=== PATIENT | female | born 1950 | race Caucasian/White ===

== ENCOUNTER → 2016-07-18 | Outpatient (CLI) | payer OTHER ==
[2016-07-18 11:18] LABS: Blood Urea Nitrogen 15 mg/dL (7-17); Non-African American GFR(MDRD) >60 (>60 ml/min/1.73 sqM)
--- NOTE | 2016-07-18 12:41 | CT ---
EXAMINATION TYPE: CT chest w con DATE OF EXAM: 07/18/2016 11:43 AM COMPARISON: NONE HISTORY: 65-year-old female, evaluate for lung nodule, cough for 3 months TECHNIQUE: Contiguous axial scanning of the chest after the administration of 100 mL of Omnipaque 300 . Coronal/sagittal reconstructions performed. CT DLP: 216.9mGycm. Automatic exposure control utilized for a dose reduction. FINDINGS: Heart is normal size without pericardial effusion. Aorta is normal caliber with conventional arch vessel branching anatomy. Borderline enlarged 9 mm upper left paratracheal lymph node is suspicious as it is a 1.2 cm right tra cheobronchial angle lymph node and 1.4 cm subcarinal lymph node. A mildly enlarged 1.1 cm right hilar lymph node is also suspicious. There is a slightly spiculated lobulated mass measuring 3.3 x 3.2 cm in the right upper lobe abutting the superior mediastinum, axial image 19. Numerous satellite nodules are present in the right upper lobe measuring up to 9 mm. A few additional nodules are seen elsewhere in the lungs measuring up to 5 mm, suggesting the right l ower lobe, axial image 35, 40, and 42, in the inferior lingula axial image 45, in the left lower lobe , axial image 41, 39, and 28, and numerous within the left upper lobe. No consolidation or pleural effusion. Mild emphysematous change is present. The visualized upper abdomen shows a hypodense lesion measuring 2.2 cm in the right liver lobe probab ly a cyst. Questionable additional hypodense lesion inferior most visualized aspect of the right live r lobe, axial image 69 is indeterminate. The adrenal glands appear clear. Bones: There is a dextroconvex scoliosis of the lower thoracic and lumbar spine. There is old healed fracture deformity of the left posterior sixth rib. Associated lucency is equivocal for metastatic di sease or chronic fracture deformity, axial image 23 and 25. Possible tiny lytic lesion posterior left seventh rib axial image 29 no osseous destructive process seen. IMPRESSION: 1. A 3.3 cm spiculated mass in the medial right upper lobe abutting the superior mediastinum suspicio us for primary lung cancer. 2. Suspicious right hilar and mediastinal lymphadenopathy measuring up to 1.4 cm. 3. Too numerous to count pulmonary nodules bilaterally measuring up to 9 mm also suspicious for metas tatic disease. 4. Old healed fracture deformity posterior left sixth rib. However, there is some associated lucency in this region that could be secondary to chronic bony deformity or subtle bone metastasis. There is also suspicious but indeterminate tiny lytic focus in the posterior left seventh rib. 5. 2.2 cm cyst in the right liver lobe but an indeterminate smaller hypodense lesion inferior most as pect of the right liver lobe incompletely seen. Consider PET/CT for staging purposes.
== END | disposition home or self-care (01) ==
LOC: RADCTMAIN 10:45
PROVIDERS: ATTEND Internal Medicine
DX: R91.8 Other nonspecific abnormal finding of lung field (principal)
CPT/HCPCS: 82565; 84520; 71260; 36415; Q9967

== ENCOUNTER → 2016-07-19 | Outpatient (CLI) | payer OTHER ==
[2016-07-19 13:42] LABS: CH 30.1; CHCM 33.1; HCT 42.9 % (34.0-46.0); HGB 14.1 gm/dL (11.4-16.0); MCHC 32.8 g/dL (31.0-37.0); MCV 91.5 fL (80.0-100.0); Mean Platelet Volume 7.6; RBC 4.69 m/uL (3.80-5.40); RDW 12.9 % (11.5-15.5); WBC 6.4 k/uL (3.8-10.6)
[2016-07-19 14:03] LABS: ALT 24 U/L (9-52); AST 24 U/L (14-36); Alkaline Phosphatase 68 U/L (38-126); Anion Gap 10 mmol/L; Blood Urea Nitrogen 14 mg/dL (7-17); Calcium 9.6 mg/dL (8.4-10.2); Carbon Dioxide 32 mmol/L (22-30); Chloride 100 mmol/L (98-107); Cholesterol 129 mg/dL (<200); Glucose 94 mg/dL (74-99); HDL Cholesterol 47 mg/dL (40-60); Non-African American GFR(MDRD) >60 (>60 ml/min/1.73 sqM); Potassium 4.1 mmol/L (3.5-5.1); Sodium 142 mmol/L (137-145); Total Bilirubin 0.6 mg/dL (0.2-1.3); Triglycerides 87 mg/dL (<150)
== END | disposition home or self-care (01) ==
LOC: LABWHC1 13:25
PROVIDERS: ATTEND Internal Medicine
DX: R53.81 Other malaise (principal); Z13.220 Encounter for screening for lipoid disorders; Z13.29 Encounter for screening for other suspected endocrine disorder
CPT/HCPCS: 36415; 80053; 80061; 84439; 84443; 85027

== ENCOUNTER → 2016-07-22 | Outpatient (CLI) | payer OTHER ==
--- NOTE | 2016-07-23 12:48 | PE ---
EXAMINATION TYPE: PET CT fusion skull to thigh DATE OF EXAM: 07/22/2016 3:15 PM COMPARISON: CT chest 07/18/2016 Prior PET/CT: None HISTORY: Abnormal lung scan TECHNIQUE: Following the intravenous administration of 14.5 mCi of F-18 FDG, whole body images are p erformed from the skull base to the midthigh. Images are reviewed on the computer in the coronal, ax ial, and sagittal planes. Reconstructed rotating images are created on independent workstation and r eviewed on the computer. A localization and attenuation correction CT is performed in conjunction w ith the PET scan. DLP: 308.80 mGycm SCAN: Initial Scan Blood glucose: 85 mg/dL Average Mediastinum SUV: 1.9 Average Liver SUV: 2.3 FINDINGS: NECK: Images through the skull base including the entire brain. Radiotracer distribution within the brain appears normal without focal hyperintensity. THORAX: There is a small focus of radiotracer posterior lateral to the trachea. Image 99. This has an SUV of 2.5. Borderline hyperintense lymph node could be present at this level. There is a focal are a of radiotracer within the right suprahilar mass with an SUV of 8.5. Image 103. This compatible with primary or metastatic lesion. There is focal radiotracer accumulation within a pretracheal node with an SUV of 5.7. Image 108. This is suspicious for metastasis. There are 2 foci of hyperintensity at l evel 113. Subcarinal hyperintensity has an SUV of 7.2. The right infrahilar hyperintensity is SUV of value of 8.3. These can be compatible with metastatic neoplasm. There is a subtle mild uptake in the left infrahilar region image 116. This has an SUV value of 3.7, suspicious for neoplasm. The coronal plane image has an intermediate signal area within the posterior medial first rib region with an SUV value approximately 1.6. This is nonspecific. Early metastatic lesion cannot be excluded. This is be st seen on the coronal image, corresponding to axial image 82. Multiple scattered punctate bilateral lung nodules are not hyperintense on PET scan. These may be too small to classify. Metastasis is not excluded this time. These all appear to an SUV values below 1. ABDOMEN: There is a photopenic defect within the hypodensity within the liver suggestive for a cyst. No suspicious uptake within the left lobe liver lesion is evident. Inferior right tip liver lesion is not hyperintense. No abnormal uptake is within the abdomen. PELVIS: No abnormal uptake OSSEOUS STRUCTURES: There is uptake within a posterior lateral left rib. Image 116. This is suspiciou s for metastasis. This has an SUV value of 3.3. Uptake is in the region of the left L5 transverse pro cess with an SUV value 5.3 suspicious for metastatic lesion. LOCALIZATION CT: The ascending thoracic aorta at the level of the main pulmonary artery measures 3.4 cm. The main pulmonary artery at the bifurcation measures 2.5 cm. Small pericardial effusion is prese nt. A 1.5 cm right ovarian cyst may be present. Scoliosis is present. Calcified granuloma is in the periphery of the left upper lung field. COMPARISON: Previously described liver lesions are not hot on the PET scan. IMPRESSION: 1. Hyperintensity within the right suprahilar mass can be compatible with a primary or metastatic les ion. 2. Multiple enlarged lymph nodes within the mediastinum are hyperintense. This includes bilateral inf rahilar region subcarinal region and peritracheal regions. 3. No abnormal uptake within the liver lesions. 4. Pericardial effusion noted on the localization CT. This appears to be increasing from 07/18/2016.
== END ==
LOC: RADPETMAIN 13:28
PROVIDERS: ATTEND Internal Medicine
DX: R91.8 Other nonspecific abnormal finding of lung field (principal); I31.3 Pericardial effusion (noninflammatory); R60.0 Localized edema
CPT/HCPCS: 78815; A9552

== ENCOUNTER 2016-07-27 11:43 | Day surgery (SDC) | payer OTHER ==
[2016-07-25 14:01] VITALS: BMI 26.3
[~2016-07-27 11:43] MED LIST: ALBUTEROL NEB (CONC) 2.5 MG/0.5 ML INHALATION ONE; LACTATED RINGERS 1,000 ML IV ONE; LACTATED RINGERS 1,000 ML IV SCH; LIDOCAINE 1% 20 ML VIAL (10MG/ML) FOR IV START INTRADERMA PRN; LIDOCAINE 2% (PF) 20 MG/ML 10ML INHALATION ONE
[2016-07-27 12:04] VITALS: RESP 16; TEMP 97.8
[2016-07-27] MEDS ORDERED: MIDAZOLAM 2 MG/2 ML VIAL ONE (12:41)
[2016-07-27] MEDS ORDERED: PROPOFOL 10 MG/ML 20 ML VIAL IV ONE (12:41)
[2016-07-27] MEDS ORDERED: LIDOCAINE 1% INJ 10MG/ML (20 ML MDV) ONE (12:41)
[2016-07-27] MEDS ORDERED: LIDOCAINE 1% INJ 10MG/ML (20 ML MDV) INTRATRACH ONE (13:08)
--- NOTE | 2016-07-27 13:10 | P.PCN ---
Date of Procedure: 07/27/16 Preoperative Diagnosis: Right paratracheal mass, right upper lobe mass Postoperative Diagnosis: Same Procedure(s) Performed: Flexible bronchoscopy, transbronchial needle aspirate of the right paratracheal lymph node Anesthesia: [facility] Surgeon: Pepper Burrell Ground Crew Chief #1: Mirtha Yuen Estimated Blood Loss (ml): 0 Pathology: other Condition: stable Disposition: same day Operative Findings: This procedure was done under conscious sedation with anesthetic agents being administered by anesthesia the bedside. After achieving adequate sedation, the flexible bronchoscope was inserted through the right nostril was advanced upper airway. Examination of the posterior oropharynx, larynx, epiglottis, vallecula and vocal cords was done and all of these upper airway structures were within normal limits. A total of 2 MO's of 1% lidocaine was applied to the vocal cords and following that the bronchoscope was advanced into the upper trachea. Examination of the tracheal bronchial she was done. Trachea was within normal. Kalli was sharp in the midline. Bilateral mainstem bronchi were patent and within normal limits. The right upper lobe was trifurcated. The anterior segment of the right upper lobe was extrinsically compressed and there was some minimal swelling/thickening of the orifice of the right upper lobe bronchus along with the kalli the various segments of the upper lobe. No endobronchial tumors was seen at the same level. The airway inspection was completed and the visualized airways included the bronchus intermedius, right lower lobe, right middle lobe, left upper lobe, left lower lobe along with various segments. All of these airways were patent and within normal limits. At this point the bronchoscope was then moved to the main trachea and using a 19 -gauge cytology and 21-gauge histology needle size monitor needle aspirate of the right paratracheal lymph node/mass was done and the adequacy of the sample was confirmed by pathology at the bedside. Total amount of bleeding was less than 5 ML's. The patient rated the procedure well. No bedside complications or bleeding. The bronchoscope was removed and the patient was sent to recovery in a stable condition. The patient will likely get discharged today home to be followed up in the office to discuss the results of the biopsy.
[2016-07-27 13:32] VITALS: BP 102/62
[2016-07-27 13:51] VITALS: PULSE 73
== END 2016-07-27 14:15 | disposition home or self-care (01) ==
LOC: ORWHC2ENDO 11:43
PROVIDERS: ATTEND Internal Medicine Critical Care Medicine
DX: C96.9 Malignant neoplasm of lymphoid, hematopoietic and related tissue, unspecified (principal); R91.8 Other nonspecific abnormal finding of lung field; E78.5 Hyperlipidemia, unspecified; G43.909 Migraine, unspecified, not intractable, without status migrainosus; I10 Essential (primary) hypertension; R05 Cough; I49.9 Cardiac arrhythmia, unspecified; Z79.82 Long term (current) use of aspirin; Z79.2 Long term (current) use of antibiotics; Z79.899 Other long term (current) drug therapy; Z88.0 Allergy status to penicillin
CPT/HCPCS: 94640; 88305; 88173; 31629; J2250; J2001 ×2; J2704; 88341; 88342

== ENCOUNTER 2016-07-28 21:15 | Emergency (ER) | payer OTHER ==
[2016-07-28 21:27] VITALS: RESP 18
[2016-07-28] MEDS ORDERED: MAG HYDROX/AL HYDROX/SIMETH 30 ML, HYOSCYAMINE ELIXIR 10 ML, CIMETIDINE HCL 300 MG, LID... PO STA ×4 (21:45)
--- NOTE | 2016-07-28 21:55 | XR ---
EXAMINATION TYPE: XR chest 2V DATE OF EXAM: 07/28/2016 9:49 PM COMPARISON: 07/24/2016 HISTORY: Cough TECHNIQUE: Frontal and lateral views of the chest are obtained. FINDINGS: Heart and mediastinum are normal. Lungs are clear. Diaphragm is normal. There is mild thor acic levoscoliosis. There is old healed left sixth rib fracture. IMPRESSION: No active cardiopulmonary disease. No change.
[2016-07-28] MEDS ORDERED: methylPREDNISolone SOD SUCCI 125 MG/2 ML VIAL IM STA (22:50)
--- NOTE | 2016-07-28 22:50 | ED ---
ENT HPI - General Chief complaint: ENT Stated complaint: lump in throat-post op Time Seen by Provider: 07/28/16 21:28 Source: patient, RN notes reviewed Mode of arrival: ambulatory Limitations: no limitations - History of Present Illness Initial comments: 65 yo female presents to the ER with cc of throat irritation. Patient had a bronco scope done yesterday by Dr. Burrell. Patient states last night she went home and she slept no problems. Now she just has the irritation in her throat sometimes she coughs and she feels like it's choking her like a lump. Patient is wondering if it is her uvula. Patient states that she hasn't actually brought anything up with it. Patient states she hasn't had a fever chills with it. Patient states she hasn't had any nausea or vomiting with it. Patient states she was concerned due to the continued irritation so she thought that she should be evaluated. Patient denies any recent fever, chills, shortness of breath, chest pain, back pain, abdominal pain, nausea vomiting, numbness or tingling, dysuria or hematuria, constipation or diarrhea, headaches or visual changes, or any other current symptoms. - Related Data Home Medications Medication Instructions Recorded Confirmed Albuterol Inhaler [Ventolin Hfa 2 puff INHALATION TID 07/25/16 07/27/16 Inhaler] Aspirin [Adult Low Dose Aspirin EC] 81 mg PO HS 07/25/16 07/25/16 Atenolol [Tenormin] 50 mg PO DAILY 07/25/16 07/27/16 Atorvastatin [Lipitor] 20 mg PO HS 07/25/16 07/27/16 Calcium Carbonate [Calcium] 600 mg PO HS 07/25/16 07/27/16 Cetirizine HCl [Zyrtec] 10 mg PO HS 07/25/16 07/27/16 Cholecalciferol [Vitamin D3] 2,000 unit PO DAILY 07/25/16 07/27/16 Docusate [Colace] 200 mg PO BID 07/25/16 07/27/16 Levofloxacin [Levaquin] 500 mg PO DAILY 07/25/16 07/27/16 Multivitamins, Thera [Multivitamin] 1 tab PO DAILY 07/25/16 07/27/16 SUMAtriptan SUCCINATE [Imitrex] 100 mg PO DIRECTED PRN 07/25/16 07/27/16 Allergies Allergy/AdvReac Type Severity Reaction Status Date / Time Penicillins Allergy Rash/Hives Verified 07/28/16 21:27 Review of Systems ROS Statement: Those systems with pertinent positive or pertinent negative responses have been documented in the HPI. ROS Other: All systems not noted in ROS Statement are negative. Past Medical History Past Medical History: Cancer, Hyperlipidemia, Osteoarthritis (OA), Pneumonia, Supraventricular Tachycardia (SVT) Additional Past Medical History / Comment(s): migraines, on rx for sinus or pneumonia, constipation, hx skin cancer History of Any Multi-Drug Resistant Organisms: None Reported Past Surgical History: Tonsillectomy Additional Past Surgical History / Comment(s): laparoscopy, A&P repair, rt foot martrins neuroma removed, Past Anesthesia/Blood Transfusion Reactions: No Reported Reaction Past Psychological History: No Psychological Hx Reported Smoking Status: Never smoker Past Alcohol Use History: Rare Past Drug Use History: None Reported - Past Family History Sister(s) Family Medical History: Cancer General Exam Limitations: no limitations General appearance: alert, in no apparent distress Head exam: Present: atraumatic, normocephalic, normal inspection ENT exam: Present: mucous membranes moist, normal external ear exam. Absent: normal oropharynx (Patient does appear to have a swollen uvula and abrasion to the distal aspect.) Neck exam: Present: normal inspection. Absent: tenderness, meningismus, lymphadenopathy Respiratory exam: Present: normal lung sounds bilaterally. Absent: respiratory distress, wheezes, rales, rhonchi, stridor Cardiovascular Exam: Present: regular rate, normal rhythm, normal heart sounds. Absent: systolic murmur, diastolic murmur, rubs, gallop, clicks Back exam: Present: normal inspection Neurological exam: Present: alert, oriented X3, CN II-XII intact. Absent: motor sensory deficit Psychiatric exam: Present: normal affect, normal mood Skin exam: Present: warm, dry, intact, normal color. Absent: rash Course Vital Signs 07/28/16 21:24 Temperature 98.1 F Pulse Rate 90 Respiratory 18 Rate Blood Pressure 131/75 O2 Sat by Pulse 98 Oximetry Medical Decision Making - Medical Decision Making 65-year-old female presents with what appears to be a swollen uvula after a bronchoscopy. At this time we did give the patient is #Medrol as well as a GI cocktail. Chest x-ray was reviewed and essentially acute process. At this time we discussed using ice popsicles and other things help with swelling. We discussed continued follow-up and parameters. We discussed all the patient's questions. She stated that she understood and she has been given the plan. All questions have been answered. This time she will be discharged home. - Radiology Data Radiology results: report reviewed, image reviewed Disposition Clinical Impression: Uvulitis Disposition: HOME SELF-CARE Condition: Stable Instructions: Uvulitis (ED) Additional Instructions: Please use medication as discussed. Please follow up with family doctor if symptoms have not improved over the next two days. Please return to the emergency room if your symptoms increase or worsen or for any other concerns. Referrals: Deana Martinez MD [Primary Care Provider] - 1-2 days Time of Disposition: 22:52
[2016-07-28 23:10] VITALS: BP 129/70; PULSE 78; TEMP 98.2
== END 2016-07-28 23:10 | disposition home or self-care (01) ==
LOC: EC 21:15
DX: K12.2 Cellulitis and abscess of mouth (principal); E78.5 Hyperlipidemia, unspecified; M19.90 Unspecified osteoarthritis, unspecified site; Z87.01 Personal history of pneumonia (recurrent); Z85.828 Personal history of other malignant neoplasm of skin; Z79.82 Long term (current) use of aspirin; Z79.899 Other long term (current) drug therapy; Z88.0 Allergy status to penicillin
CPT/HCPCS: 71020; 99283; 96372; J2930

== ENCOUNTER → 2016-09-04 | Outpatient (CLI) | payer OTHER ==
--- NOTE | 2016-09-04 11:10 | US ---
EXAMINATION TYPE: US venous doppler duplex LE LT DATE OF EXAM: 09/04/2016 10:56 AM COMPARISON: NONE CLINICAL HISTORY: M79.662 PAIN IN LT LOWER LIMB. Calf pain that acts up at night, no swelling, no h/o dvt, h/o lung CA with met to bone SIDE PERFORMED: Left TECHNIQUE: The lower extremity deep venous system is examined utilizing real time linear array sonog alejandrina with graded compression, doppler sonography and color-flow sonography. VESSELS IMAGED: External Iliac Vein (EIV) Common Femoral Vein Deep Femoral Vein Greater Saphenous Vein * Femoral Vein Popliteal Vein Small Saphenous Vein * Proximal Calf Veins (* superficial vessels) Left Leg: Appears negative for DVT tech impression relayed to Rox at office @ 11:00 IMPRESSION: 1. No left lower extremity ultrasound evidence of deep venous thrombosis.
== END ==
LOC: RADUSWWP 10:35
PROVIDERS: ATTEND Internal Medicine Hematology & Oncology
DX: M79.662 Pain in left lower leg (principal)

== ENCOUNTER → 2016-11-11 | Outpatient (CLI) | payer OTHER ==
--- NOTE | 2016-11-13 11:21 | PE ---
Nuclear medicine PET/CT HISTORY: Lung cancer Patient received 14.7 mCi F-18 FDG intravenously delayed scanning performed from the skull base to th e mid thighs. Localization and attenuation correction CT scan was performed. Correlation to prior nuclear medicine PET/CT 07/22/2016 Neck and chest: Aorticopulmonary window nodes show a similar appearance.. There is hypermetabolic upt mario however in the retrocaval pretracheal node SUV 4.2, right hilar node SUV 7.1, subcarinal node tiffanie ws SUV 7.5. Right upper lobe soft tissue measures approximately 2.7 cm in transverse dimension by 1.6 cm in AP dimension which has decreased in size and shows associated hypermetabolic uptake, SUV is 2. 9. Abdomen pelvis: No suspicious hypermetabolic uptake. No evident adenopathy. Osseous structures: Abnormal uptake and lytic appearance to the posterior left sixth rib has changed to sclerotic appearance, no significant hypermetabolic uptake. Scoliotic curvature again noted withi n the lumbar spine. IMPRESSION: There is interval improvement in the right upper lobe lung mass size, osseous metastatic lesion and mediastinal adenopathy, persistent hypermetabolic uptake is present in the subcarinal, ret rocaval and right hilar node as described.
== END | disposition home or self-care (01) ==
LOC: RADPETMAIN 07:59
PROVIDERS: ATTEND Internal Medicine Hematology & Oncology
DX: C79.51 Secondary malignant neoplasm of bone (principal); C34.11 Malignant neoplasm of upper lobe, right bronchus or lung; R59.0 Localized enlarged lymph nodes
CPT/HCPCS: 78815; A9552

== ENCOUNTER → 2016-12-20 | Outpatient (CLI) | payer OTHER ==
[2016-12-20 11:54] LABS: Blood Urea Nitrogen 16 mg/dL (7-17); Non-African American GFR(MDRD) >60 (>60 ml/min/1.73 sqM)
--- NOTE | 2016-12-20 13:01 | CT ---
EXAMINATION TYPE: CT chest w con DATE OF EXAM: 12/20/2016 COMPARISON: PET/CT 11/11/[address] chest 07/18/2016 HISTORY: 66-year-old female Right upper chest discomfort and cough. History of lung cancer TECHNIQUE: Contiguous axial scanning of the chest after the administration of 100 mL of Omnipaque 300 . Coronal/sagittal reconstructions performed. CT DLP: 529mGycm. Automatic exposure control utilized for a dose reduction. FINDINGS: Heart is normal size with small pericardial effusion measuring 1.3 cm thick, increased from 11/11/2016 . There is normal caliber with conventional arch vessel branching anatomy. No enlarged thoracic lymphadenopathy by CT size criteria. However, we note that previous hypermetabol ic mediastinal lymph nodes on PET CT of 11/11/2016 also were no longer enlarged. The medial right upper lobe spiculated mass currently measures 2.7 x 1.2 cm versus 3.0 x 1.8 cm on . Numerous bilateral pulmonary nodules seen on 07/18/2016 are no longer evident. Band of scarring at the peripheral right base and scattered minimal. Calcified granuloma peripheral left upper lobe. No consolidation or pleural effusion. Minimal scattered emphysematous change. Stable hypodense lesions within the liver, one on each side. Adrenal glands are clear. Bones: Stable focal bony irregularity and sclerosis of the posterior left sixth rib. Scoliosis. No os seous destructive process. IMPRESSION: 1. Stable to slight decrease in size of the 2.7 cm spiculated lesion medial right upper lobe (versus 3.0 cm on 11/11/2016). 2. Increasing size of the patient's small pericardial effusion which measures 1.3 cm thick. 3. No thoracic lymphadenopathy by CT size criteria. We note that recent PET scan had hypermetabolic m ediastinal lymph nodes which were also not enlarged 4. Numerous bilateral pulmonary nodules seen on 07/18/2016 are no longer apparent. 5. Stable treated bony metastasis posterior left sixth rib.
== END | disposition home or self-care (01) ==
LOC: RADCTMAIN 11:10
PROVIDERS: ATTEND Internal Medicine Hematology & Oncology
DX: C34.11 Malignant neoplasm of upper lobe, right bronchus or lung (principal); C79.51 Secondary malignant neoplasm of bone; I31.3 Pericardial effusion (noninflammatory); R91.8 Other nonspecific abnormal finding of lung field; Z88.0 Allergy status to penicillin
CPT/HCPCS: 82565; 84520; 71260; 36415; Q9967

== ENCOUNTER → 2017-02-03 | Outpatient (CLI) | payer OTHER ==
--- NOTE | 2017-02-05 08:03 | PE ---
EXAMINATION TYPE: PET CT fusion skull to thigh DATE OF EXAM: 02/03/2017 COMPARISON: PET/CT November 11, [address] July 22, 2016. CT chest December 20, 2016 HISTORY: Lung cancer progress study after chemotherapy treatment. TECHNIQUE: Following the intravenous administration of 15.55 mCi of F-18 FDG, whole body images are performed from the skull base to the midthigh. Images are reviewed on the computer in the coronal, a xial, and sagittal planes. Reconstructed rotating images are created on independent workstation and reviewed on the computer. A localization and attenuation correction CT is performed in conjunction with the PET scan. SCAN: Subsequent Scan FINDINGS: SKULL BASE AND NECK: No suspicious hypermetabolic uptake. CHEST, MEDIASTINUM, AND HILAR REGION: Primary spiculated lesion right upper lobe is redemonstrated me asuring 1.9 x 1.8 cm on current study axial image 70 without abnormal hypermetabolic uptake. There is some residual hypermetabolic uptake in right hilar and subcarinal lymph nodes which are currently gaspar bcentimeter in size near axial image 79, max SUV is 5.14. They have diminished in size and show less hypermetabolic uptake versus prior exam. Faint hypermetabolic uptake is seen in smaller lymph nodes l eft hilar region and paracarinal level also improved from prior No new masses or suspicious areas of hypermetabolic uptake are present. ABDOMEN AND PELVIS: No new areas of abnormal hypermetabolic uptake are seen in the abdomen or pelvis. No adrenal masses are evident. OSSEOUS STRUCTURES: No suspicious hypermetabolic uptake is seen in osseous structures. There is persi stent slightly expanded sclerotic posterior left sixth rib near axial image 83 noted. This could be p osttraumatic in etiology. OTHER CT: There is redemonstration of calcified 4 mm subpleural nodule left lung apex posteriorly on axial image 61. Some linear scarring laterally in the right lung base is redemonstrated. There is redemonstration of cardiomegaly with stable small size pericardial effusion. There is stable 1.3 cm simple appearing cyst right hepatic lobe. Scattered pelvic phleboliths are redemonstrated. There is multilevel facet arthropathy in the lumbar spine contributing to multilevel spinal canal eff acement or stenosis. Underlying prominent scoliosis is redemonstrated. IMPRESSION: Continued interval improvement, primary lesion is stable in size without abnormal hyperme tabolic uptake currently. Thoracic adenopathy continues to diminish in size and diminished in degree of hypermetabolic uptake. No new masses or suspicious hypermetabolic uptake is seen.
== END | disposition home or self-care (01) ==
LOC: RADPETMAIN 08:33
PROVIDERS: ATTEND Internal Medicine Hematology & Oncology
DX: C34.11 Malignant neoplasm of upper lobe, right bronchus or lung (principal)
CPT/HCPCS: 78815; A9552

== ENCOUNTER → 2017-03-30 | Outpatient (CLI) | payer OTHER ==
--- NOTE | 2017-03-30 15:28 | XR ---
EXAMINATION TYPE: XR ribs RT DATE OF EXAM: 03/30/2017 COMPARISON: CT thorax dated 12/20/2016 and PET/CT dated 02/03/2017 HISTORY: Right rib pain for one week TECHNIQUE: Frontal and oblique radiographs of the right ribs were obtained. FINDINGS: The known spiculated right upper lobe pulmonary mass is best visualized on the oblique imag es but is ill-defined on the frontal images. This is better measured on the recent CT. No suspicious osseous lesion is seen radiographically. There is no evidence of acute fracture or dislocation of the right ribs. There is alignment of the right glenohumeral joint and mild arthropathy of the right acr omio clavicular joint. There is partial visualization of an S-shaped scoliotic curvature of the visua lized thoracolumbar spine. IMPRESSION: No evidence of acute fracture of the right ribs or suspicious osseous lesion. The known r ight apical spiculated pulmonary nodule is ill-defined and better appreciated on the recent PET/CT an d CT thorax.
== END | disposition home or self-care (01) ==
LOC: RADXRMAIN 13:35
PROVIDERS: ATTEND Internal Medicine
DX: R91.1 Solitary pulmonary nodule (principal); R52 Pain, unspecified

== ENCOUNTER → 2017-07-28 | Outpatient (CLI) | payer OTHER ==
--- NOTE | 2017-07-28 10:15 | PE ---
EXAMINATION TYPE: PET CT fusion skull to thigh DATE OF EXAM: 07/28/2017 COMPARISON: PET/CT February 03, 2017 and older studies back through PET CT July 22, 2016. HISTORY: Lung cancer progress study. History of biopsy March 2017 per patient without chemotherapy or radiation treatment. TECHNIQUE: Following the intravenous administration of 12.46 mCi of F-18 FDG, whole body images are performed from the skull base to the midthigh. Images are reviewed on the computer in the coronal, a xial, and sagittal planes. Reconstructed rotating images are created on independent workstation and reviewed on the computer. A localization and attenuation correction CT is performed in conjunction with the PET scan. SCAN: Subsequent Scan FINDINGS: SKULL BASE AND NECK: No suspicious hypermetabolic uptake on current study. CHEST, MEDIASTINUM, AND HILAR REGION: There is marked interval improvement in scattered predominantly upper lung nodule since original PET/CT. There is persistent ametabolic medial right upper lobe spic ulated nodule measuring 2.0 x 1.1 cm on axial image 73 not significant change in size or appearance f rom recent PET CT, significantly improved since original study. There are persistent under 1 cm hypermetabolic lymph nodes in the right paratracheal region axial mike ge 76, and roughly 1 cm subcarinal region axial image 82, and 1 cm right hilar region axial image 82. No significant change in size is identified from prior. SUV is 5.1 fairly stable from prior. Faint hypermetabolic uptake subcentimeter left hilar lymph nodes is felt stable. No new areas of suspicious hypermetabolic uptake are identified. ABDOMEN AND PELVIS: No new areas of abnormal hypermetabolic uptake are present. OSSEOUS STRUCTURES: No suspicious hypermetabolic uptake is seen. There is redemonstration of healing posterior left sixth rib fracture. OTHER CT: There is persistent right lateral basilar linear scarring. There is stable calcified 4 mm l eft apical nodule axial image 65 posteriorly. There is stable mild cardiomegaly and small pericardial effusion. There is 1.3 cm round hypodense lesion right hepatic lobe axial image 127 felt to reflect simple cyst redemonstrated Underlying scoliosis is again seen in the lumbar spine. There is multilevel spurring in the thoracolu mbar spine. There is multilevel facet arthropathy in the mid to lower lumbar spine. There are scattered pelvic phleboliths seen. IMPRESSION: Overall stable findings from most recent PET/CT. Persistent but stable thoracic adenopath y. No new areas of active neoplasm identified.
== END | disposition home or self-care (01) ==
LOC: RADPETMAIN 07:32
PROVIDERS: ATTEND Internal Medicine Hematology & Oncology
DX: C34.11 Malignant neoplasm of upper lobe, right bronchus or lung (principal); R59.0 Localized enlarged lymph nodes
CPT/HCPCS: 78815; A9552

== ENCOUNTER → 2018-02-09 | Outpatient (CLI) | payer BC, MEDICARE ==
--- NOTE | 2018-02-11 16:21 | PE ---
Nuclear medicine PET/CT HISTORY: Lung carcinoma, subsequent Patient received 11.7 mCi F-18 intravenously in delayed scanning performed from the skull base to the mid thighs. An attenuation correction CT, localization CT scan was also performed. Correlation to prior nuclear medicine PET/CT 07/28/2017 Neck and chest: There is no evident cervical adenopathy. No supraclavicular or axillary adenopathy. R etrocaval pretracheal node shows hypermetabolic uptake with SUV 3.2, subcarinal node SUV 5.5, right h ilar nodes SUV 4.7, left hilar nodes 2.8 SUV. There is a small pericardial effusion. No pleural effus ion. Linear bands at the right lung base somewhat nodular at the costophrenic angle on the right as o n prior, there is some local bronchiectatic change which is stable, axial image 104 in the right lowe r lobe. Right upper lobe scarring shows a stable appearance, no significant associated hypermetabolic uptake. Calcified nodule again noted in the left upper lobe. Abdomen pelvis: No evident adrenal mass. No associated hypermetabolic uptake. Low dense focus within the right lobe of the liver is present, no associated hypermetabolic uptake. Dependent calcification in the gallbladder activity due to cholelithiasis. No evident retroperitoneal adenopathy, there is a spinal curvature. Mild prominence the right renal collecting system is again noted. Right ovarian cys tic mass again seen, no associated hypermetabolic uptake. No pelvic adenopathy. Osseous structures show degenerative disc changes in the lower lumbar spine, there is associated face t arthropathy. Spinal stenosis suspected at the lower lumbar spine. IMPRESSION: Findings are similar to prior exam.
== END | disposition home or self-care (01) ==
LOC: RADPETMAIN 07:26
PROVIDERS: ATTEND Internal Medicine Hematology & Oncology
DX: C34.11 Malignant neoplasm of upper lobe, right bronchus or lung (principal)
CPT/HCPCS: 78815; A9552

== ENCOUNTER 2018-05-19 18:17 | Emergency (ER) | payer MEDICARE, BC ==
[2018-05-19 18:33] VITALS: RESP 18; TEMP 98
[2018-05-19] MEDS ORDERED: CEPHALEXIN 500MG STARTER PACK 4 CAP BTL PO STA (20:24)
[2018-05-19] MEDS ORDERED: SULFAMETH-TMP DS STARTER PACK 2 TAB BTL PO STA (20:24)
[2018-05-19] MEDS ORDERED: ERYTHROMYCIN 5 MG/GM OPHTH OINT 3.5 GM TUBE RIGHT EYE SCH (20:30)
--- NOTE | 2018-05-19 20:37 | ED ---
Eye Problem HPI - General Chief complaint: Eye Problems Stated complaint: Eye pain Time Seen by Provider: 05/19/18 18:35 Source: patient Mode of arrival: ambulatory Limitations: no limitations - History of Present Illness Initial comments: This a 67-year-old feel past medical history of lung cancer on targeted treatment, orally x 18 months presents today for chief complaint of right eye redness and drainage. Mother states that her hands and had recently had pink eye. She states she woke up yesterday from a nap noting increasing drainage, erythema and irritation of the right eye. Patient denies any pain or visual changes. Patient denies any diplopia, headache or pain with extraocular eye movements. Patient states that she took her grandsons tobramycin, 4 doses in total since yesterday evening however she decided to presents today for evaluation. Patient denies any fever, chills or night sweats. Patient does admit to a recent upper respiratory infection that has since cleared. Patient denies any trauma or injury to the eye. Patient denies any history of glaucoma. Upon arrival patient appears well, no signs of focal neurological deficits upon initial inspection. Vital signs within acceptable limits. Patient does not appear to be in acute distress. Remainder of ROS negative, patient denies any recent fever, chills, shortness of breath, chest pain, back pain, abdominal pain, nausea or vomiting, numbness or tingling, dysuria or hematuria, constipation or diarrhea, headaches or visual changes, or any other complaints. - Related Data Home Medications Medication Instructions Recorded Confirmed Albuterol Inhaler [Ventolin Hfa 2 puff INHALATION TID 07/25/16 07/27/16 Inhaler] Aspirin [Adult Low Dose Aspirin EC] 81 mg PO HS 07/25/16 07/25/16 Atenolol [Tenormin] 50 mg PO DAILY 07/25/16 07/27/16 Atorvastatin [Lipitor] 20 mg PO HS 07/25/16 07/27/16 Calcium Carbonate [Calcium] 600 mg PO HS 07/25/16 07/27/16 Cetirizine HCl [Zyrtec] 10 mg PO HS 07/25/16 07/27/16 Cholecalciferol [Vitamin D3] 2,000 unit PO DAILY 07/25/16 07/27/16 Docusate [Colace] 200 mg PO BID 07/25/16 07/27/16 Levofloxacin [Levaquin] 500 mg PO DAILY 07/25/16 07/27/16 Multivitamins, Thera [Multivitamin] 1 tab PO DAILY 07/25/16 07/27/16 SUMAtriptan SUCCINATE [Imitrex] 100 mg PO DIRECTED PRN 07/25/16 07/27/16 Previous Rx's Medication Instructions Recorded Cephalexin [Keflex] 500 mg PO Q12HR 7 Days #14 cap 05/19/18 Erythromycin Ophth Oint [Romycin 1 applic RIGHT EYE QID 5 Days #1 05/19/18 Ophth Oint] tube Sulfamethox-Tmp 800-160Mg [Bactrim 1 tab PO Q12HR 7 Days #14 tab 05/19/18 DS 800-160 mg] Allergies Allergy/AdvReac Type Severity Reaction Status Date / Time Penicillins Allergy Rash/Hives Verified 05/19/18 18:33 Review of Systems ROS Statement: Those systems with pertinent positive or pertinent negative responses have been documented in the HPI. ROS Other: All systems not noted in ROS Statement are negative. Past Medical History Past Medical History: Cancer, Hyperlipidemia, Osteoarthritis (OA), Pneumonia, Supraventricular Tachycardia (SVT) Additional Past Medical History / Comment(s): migraines, on rx for sinus or pneumonia, constipation, hx skin cancer History of Any Multi-Drug Resistant Organisms: None Reported Past Surgical History: Tonsillectomy Additional Past Surgical History / Comment(s): laparoscopy, A&P repair, rt foot martrins neuroma removed, Past Anesthesia/Blood Transfusion Reactions: No Reported Reaction Past Psychological History: No Psychological Hx Reported Smoking Status: Never smoker Past Alcohol Use History: Rare Past Drug Use History: None Reported - Past Family History Sister(s) Family Medical History: Cancer General Exam - General Exam Comments Initial Comments: VA 20/20 with corrective glasses. OD, OS, OU. General: The patient is awake and alert, in no distress, and does not appear acutely ill. Eye: Pupils are equal, round and reactive to light, extra-ocular movements are intact. No nystagmus. There is normal conjunctiva of the left eye, +2 conjunctival injection of the right eye.. No signs of icterus. Conjunctival injection is in the limbus. There is noted discharge in the right eye. As well as mild erythema of the strike soft tissues of the right eye. Patient denies any pain with extraocular eye movements. There is no limitations of extraocular eye movements noted. No noted photophobia. Upon fluorescein examination no areas of uptake. IOP 17 OD. Ears, nose, mouth and throat: There are moist mucous membranes and no oral lesions. Neck: The neck is supple, there is no tenderness or JVD. Cardiovascular: There is a regular rate and rhythm. No murmur, rub or gallop is appreciated. Respiratory: Lungs are clear to auscultation, respirations are non-labored, breath sounds are equal. No wheezes, stridor, rales, or rhonchi. Gastrointestinal: Soft, non-distended, non-tender abdomen without masses or organomegaly noted. There is no rebound or guarding present. No CVA tenderness. Bowel sounds are unremarkable. Musculoskeletal: Normal ROM, no tenderness. Strength 5/5. Sensation intact. Pulses equal bilaterally 2+. Neurological: A&O x 3. CN II-XII intact, There are no obvious motor or sensory deficits. Coordination appears grossly intact. Speech is normal. Skin: Skin is warm and dry and no rashes or lesions are noted. Psychiatric: Cooperative, appropriate mood & affect, normal judgment. Limitations: no limitations Course Vital Signs 05/19/18 05/19/18 18:31 20:49 Temperature 98 F Pulse Rate 72 71 Respiratory 18 18 Rate Blood Pressure 127/61 150/70 O2 Sat by Pulse 98 100 Oximetry Medical Decision Making - Medical Decision Making No decrease in visual acuity in the right eye comparison the left. 20/20 OD, OS , OU with corrective lens. Intraocular pressure 17 of the right eye. Patient denies any pain. Patient denies any pain with extraocular eye movement concerning for a orbital cellulitis. There is evidence of surrounding soft tissue erythema of the right eye concerning for a periorbital cellulitis. Patient will be started on Keflex and Bactrim as well as a topical erythromycin ointment. Patient was instructed to closely follow up with ophthalmology in the next 24 hours. I discussed the importance of follow-up. Patient denies any concerning symptoms no evidence of visual changes. Patient is not contact lens user. Patient does have glasses. At this time I do feel patient is stable for discharge with ophthalmology follow-up. I discussed the case in detail with Dr. Jaimes Agrees with impression and plan. Patient was discharged in stable condition appearing well after receiving initial doses of both oral and topical medications. Return parameters discussed at length with patient who verbalized understanding. Patient was discharged in stable condition appearing well. Disposition Clinical Impression: Periorbital cellulitis of right eye Disposition: HOME SELF-CARE Condition: Good Instructions: Periorbital Cellulitis in Adults (ED) Additional Instructions: Please use medication as discussed. Please follow-up with ophthalmology in the next 1-2 days. Please return to emergency room if the symptoms increase or worsen or for any other concerns, including pain in eye or with eye movement. Prescriptions: Cephalexin [Keflex] 500 mg PO Q12HR 7 Days #14 cap Erythromycin Ophth Oint [Romycin Ophth Oint] 1 applic RIGHT EYE QID 5 Days #1 tube Sulfamethox-Tmp 800-160Mg [Bactrim DS 800-160 mg] 1 tab PO Q12HR 7 Days #14 tab Is patient prescribed a controlled substance at d/c from ED?: No Referrals: Deana Martinez MD [Primary Care Provider] - 1-2 days Nino Goldman MD [STAFF PHYSICIAN] - 1-2 days Time of Disposition: 20:31
[2018-05-19 20:59] VITALS: BP 150/70; PULSE 71
== END 2018-05-19 20:59 | disposition home or self-care (01) ==
LOC: EC 18:17
DX: L03.213 Periorbital cellulitis (principal); E78.5 Hyperlipidemia, unspecified; Z79.82 Long term (current) use of aspirin; Z79.899 Other long term (current) drug therapy; Z88.0 Allergy status to penicillin; Z85.828 Personal history of other malignant neoplasm of skin; Z85.118 Personal history of other malignant neoplasm of bronchus and lung
CPT/HCPCS: 99283

== ENCOUNTER → 2018-06-27 | Outpatient (CLI) | payer MEDICARE, BC ==
--- NOTE | 2018-06-27 15:31 | XR ---
Lumbosacral spine HISTORY: Low back pain 5 views of the lumbosacral spine correlated to prior exam 07/02/2014 Marked dextroscoliosis shows a similar appearance. There is a rotatory component. There is no evident spondylolysis. Vertebral body height, alignment, bone mineralization are similar, there may be anter olisthesis grade 1 L4-5. Loss of disc height present L5-S1 with associated vacuum phenomenon. Scleros is present in the posterior elements compatible with facet arthropathy. IMPRESSION: Scoliosis as described degenerative disc disease, facet arthropathy.
== END | disposition home or self-care (01) ==
LOC: RADXRMAIN 13:06
PROVIDERS: ATTEND Internal Medicine
DX: M41.86 Other forms of scoliosis, lumbar region (principal); M51.36 Other intervertebral disc degeneration, lumbar region; M46.96 Unspecified inflammatory spondylopathy, lumbar region
CPT/HCPCS: 72110

== ENCOUNTER → 2018-07-30 | Outpatient (CLI) | payer MEDICARE, BC ==
--- NOTE | 2018-07-30 09:13 | US ---
EXAMINATION TYPE: US abdomen complete DATE OF EXAM: 07/30/2018 COMPARISON: pet scan 01/2018 CLINICAL HISTORY: R10.11 Right Upper Quad Pain. Hx lung CA 2017, targeted radiation, pt is having pet scan this Thursday 08/03 EXAM MEASUREMENTS: Liver Length: 14.6 cm Gallbladder Wall: 0.1 cm CBD: 0.2 cm Spleen: 6.1 cm Right Kidney: 9.8 x 5.2 x 4.5 cm Left Kidney: 9.5 x 4.9 x 3.8 cm Pancreas: Tail obscured by overlying bowel gas Liver: small nodule left lobe 1.0 x 0.8 x 0.8 cm non vascular Gallbladder: wnl Evidence for sonographic Mueller's sign: No CBD: wnl Spleen: Obscured by overlying bowel gas Right Kidney: No hydronephrosis or masses seen Left Kidney: No hydronephrosis or masses seen Upper IVC: wnl Abd Aorta: wnl The liver is homogenous. The intrahepatic portion of the IVC and proximal abdominal aorta are within normal limits. There is no evidence of cholelithiasis. Common bile duct is unremarkable. The visu alized portions of the pancreas are homogenous. The spleen is unremarkable. Kidneys are symmetric a nd free of hydronephrosis. No renal lesions are seen. IMPRESSION: 1. Nonspecific 1 cm Nonvascular lesion of decreased echogenicity within the left hepatic lobe. Consid er CT correlation.
== END | disposition home or self-care (01) ==
LOC: RADUSWWP 08:28
PROVIDERS: ATTEND Internal Medicine
DX: K76.9 Liver disease, unspecified (principal)
CPT/HCPCS: 76700

== ENCOUNTER → 2018-08-03 | Outpatient (CLI) | payer MEDICARE, BC ==
--- NOTE | 2018-08-05 11:27 | PE ---
Nuclear medicine PET/CT HISTORY: Lung carcinoma, subsequent Patient received 13.3 mCi F-18 FDG intravenously in delayed scanning was performed from the skull bas e to the mid thighs. Localization and attenuation correction CT scan was performed. Correlation to prior nuclear medicine PET/CT 02/09/2018 Neck And chest: There is a stellate density in the right upper lobe with pleural extension is, extens ion towards the mediastinum similar to prior exam, additional parenchymal bands at the right lower lo be laterally shows a nodular appearance and is stable, no associated hypermetabolic uptake. There is again noted evidence of old granulomatous disease. Trace pericardial effusion. Heart is stable. No cervical adenopathy. Retrocaval pretracheal node shows an SUV of 3.6, measures 3.2 on prior, aorti copulmonary window node shows SUV of only 2.4, subcarinal node SUV is 4, right hilar node 5.4, left h ilar node SUV is 3.2. Abdomen pelvis: No suspicious hypermetabolic uptake. There is a low dense focus within the right lobe of liver without associated hypermetabolic uptake. No evident adrenal mass. No retroperitoneal adeno estuardo. Some hyperdense material seen within the gallbladder compatible with stones. Osseous structures are stable, there is degenerative disc change, scoliotic curvature of the lumbar s pine. IMPRESSION: Findings are similar to prior exam.
== END | disposition home or self-care (01) ==
LOC: RADPETMAIN 08:01
PROVIDERS: ATTEND Internal Medicine Hematology & Oncology
DX: C34.11 Malignant neoplasm of upper lobe, right bronchus or lung (principal)
CPT/HCPCS: 78815; A9552

== ENCOUNTER → 2018-09-04 | Day surgery (SDC) | payer MEDICARE, BC ==
[2018-08-30 15:35] VITALS: BMI 28.1
[~2018-09-04] MED LIST changes: -ALBUTEROL NEB (CONC) 2.5 MG/0.5 ML INHALATION ONE; -LACTATED RINGERS 1,000 ML IV SCH; -LIDOCAINE 1% 20 ML VIAL (10MG/ML) FOR IV START INTRADERMA PRN; +LIDOCAINE 1% INJ 10MG/ML (20 ML MDV) ONE; -LIDOCAINE 2% (PF) 20 MG/ML 10ML INHALATION ONE; +PROPOFOL 10 MG/ML 20 ML VIAL IV ONE
[2018-09-04 09:45] VITALS: RESP 16; TEMP 98
--- NOTE | 2018-09-04 10:32 | P.PCN ---
Date of Procedure: 09/04/18 Procedure(s) Performed: BRIEF HISTORY: Patient is a 60-year-old, pleasant, white female, scheduled for an upper endoscopy as a part of evaluation epigastric fullness, excessive belching for the last 3-4 years duration. Lately his symptoms have been progressively getting worse. She has tried Zantac for a week ago. PROCEDURE PERFORMED: Esophagogastroduodenoscopy with biopsy. PREOPERATIVE DIAGNOSIS: Epigastric discomfort and fullness/excessive belching of 3-4 years duration. IV sedation per anesthesia. PROCEDURE: After informed consent was obtained, the patient was brought into the endoscopy unit. IV sedation was administered by Anesthesia under continuous monitoring. Initially the Olympus GIF-140 video endoscope was inserted into the mouth. Esophagus intubated without any difficulty. It was gradually advanced into the stomach and duodenum and carefully examined. The bulb and the second p art of the duodenum appeared normal. The scope at this time was withdrawn to the stomach, adequately insufflated with air, and upon careful examination, mucosa of the antrum, had severe erosive gastritis and one superficial ulceration measuring 5-6 mm in size which was biopsied. The body, cardia and the fundus appeared normal. The scope was then withdrawn into the esophagus. The GE junction was located at 39 cm from the incisors. The esophagus appeared normal. There were no erosions or ulcerations seen and the patient tolerated the procedure well. IMPRESSION: 1. Superficial antral ulcer and antral erosive gastritis. 2. No evidence of esophagitis. RECOMMENDATIONS: The findings of this examination were discussed with the patient as well as a family. She was advised to follow with the biopsy results. Interim she will be given a prescription for all Zantac 150 milligrams twice daily for 3 months.
[2018-09-04 11:28] VITALS: BP 115/62; PULSE 59
== END ==
LOC: ORWHC2ENDO 09:13
PROVIDERS: ATTEND Internal Medicine Gastroenterology
DX: K25.9 Gastric ulcer, unspecified as acute or chronic, without hemorrhage or perforation (principal); K29.50 Unspecified chronic gastritis without bleeding; K20.9 Esophagitis, unspecified; E78.5 Hyperlipidemia, unspecified; C34.90 Malignant neoplasm of unspecified part of unspecified bronchus or lung; G43.909 Migraine, unspecified, not intractable, without status migrainosus; M19.90 Unspecified osteoarthritis, unspecified site; Z87.01 Personal history of pneumonia (recurrent); Z86.79 Personal history of other diseases of the circulatory system; Z79.82 Long term (current) use of aspirin; Z79.899 Other long term (current) drug therapy; Z88.0 Allergy status to penicillin
CPT/HCPCS: 88305; 43239; J2001; J2704

== ENCOUNTER → 2019-01-25 | Outpatient (CLI) | payer MEDICARE, BC ==
--- NOTE | 2019-01-27 07:51 | PE ---
EXAMINATION TYPE: PET CT fusion skull to thigh DATE OF EXAM: 01/25/2019 COMPARISON: PET/CT dated 08/03/2018, 02/09/2018, and 07/22/2016 HISTORY: Lung cancer treated with chemotherapy in December 2017 and radiation in May 2018 with prio r right lung surgery. TECHNIQUE: Following the intravenous administration of 11.79 mCi of F-18 FDG, whole body images are performed from the skull base to the midthigh. Images are reviewed on the computer in the coronal, a xial, and sagittal planes. Reconstructed rotating images are created on independent workstation and reviewed on the computer. A localization and attenuation correction CT is performed in conjunction with the PET scan. SCAN: Subsequent treatment strategy FINDINGS: Mediastinal background: 3.03 Abdominal background: 1.81 SKULL BASE AND NECK: No suspicious hypermetabolic uptake. CHEST, MEDIASTINUM, AND HILAR REGION: Postsurgical change of the right upper lobe is seen with bandlike thickening against the mediastinum and right lung apex. This has a maximum SUV of 1.19 multiple low knees in a background. Surgical sutu res are seen inferior to this at the hilum. The previously seen pretracheal lymph node had a maximum SUV of 3.6 on the prior exam and has a curre nt SUV of 3.08. The previously seen right hilar lymph node had a maximum SUV of 5.4 on the prior and has a current maximum SUV of 3.77. The previously seen subcarinal lymph node demonstrated a maximum S UV of 4.02 on the prior exam and currently demonstrates a maximum SUV of 4.2, similar. There are stacy lar size of all of these lymph nodes in comparison to the prior. ABDOMEN AND PELVIS: Hypoattenuated lesion within the right lobe of the liver is again without associa ramirez hypermetabolic uptake. There is hypermetabolic focal activity of the medial splenic margin howeve r this is presumed to represent misregistration from the left kidney. Precautionary splenic ultrasoun d is recommended. OSSEOUS STRUCTURES: No suspicious hypermetabolic uptake. OTHER CT: There is a left-sided MediPort present. Paranasal sinuses and mastoid air cells are well ae rated. Small pericardial effusion appears simple. There is a hypometabolic small right pleural effusi on at the lung bases. Bandlike pleural parenchymal scarring is seen multifocally at the right lung ba se. Moderate underlying emphysematous change and linear pleural parenchymal scarring at the left lung apex. Multiple probable left renal sinus cysts appears stable. Small amount of free fluid is seen wi thin the pelvis, which may be physiologic. Moderate degree colonic fecal Restasis. There is a low-den sity left adrenal gland nodule within the unenhanced average Hounsfield unit of -3. This may represen t a lipid rich adenoma or myelolipoma. Degenerative changes of the cervical spine and thoracic spine are also noted. Degenerative changes of scoliosis of the lumbar spine are noted. Prior granulomatous change. IMPRESSION: Continued response to treatment with decrease SUV of the pretracheal and right hilar hype rmetabolic lymph nodes (similar size) and similar SUV of the hypermetabolic subcarinal lymph node. No new uptake within the right apical scarring and no new evidence of metastatic disease in the chest, abdomen, and pelvis.
== END | disposition home or self-care (01) ==
LOC: RADPETMAIN 07:33
PROVIDERS: ATTEND Internal Medicine Hematology & Oncology
DX: C34.11 Malignant neoplasm of upper lobe, right bronchus or lung (principal)
CPT/HCPCS: 78815; A9552

== ENCOUNTER → 2019-01-31 | Outpatient (CLI) | payer MEDICARE, BC ==
--- NOTE | 2019-02-02 14:28 | MR ---
EXAMINATION TYPE: MR lumbar spine wo/w con DATE OF EXAM: 01/31/2019 COMPARISON: Prior PET/CT 6 days earlier. HISTORY: LBP, lt sciatica x 9 mos, hx lung ca TECHNIQUE: Multiplanar, multisequence images of the lumbar spine is performed without and with IV contrast, util izing 7.5 mL intravenous Gadavist FINDINGS: Coronal images show marked dextroconvex scoliosis centered at L2 level. Sagittal images of the lumbar spine show loss of normal lumbar lordosis. Vertebral body heights are maintained. Multilev el disc desiccation is seen. There is moderate disc space narrowing most prominent left L1-L2 and L2- L3 levels. The conus medullaris is normal in position and signal ending mid L1 level. Heterogeneous Modic type III endplate changes left L2-L3 level is present. There is mild to moderate multilevel ant erior and lateral spurring. Axial images at the T12-L1 level shows mild to moderate facet degenerative changes and ligamentum fla vum hypertrophy with mild effacement of left posterior lateral thecal sac and mild left-sided neural foraminal narrowing due to scoliotic curvature. Axial images at the L1-L2 level moderate left greater than right facet degenerative changes and ligam entum hypertrophy effacing the posterior lateral thecal sac. There is mild broad disc bulge effacing the anterior thecal sac. There is mild left-sided neural foraminal narrowing. Axial images at the L2-L3 level to moderate broad disc bulge with left paracentral disc protrusion co mponent effacing the anterior thecal sac. There is moderate facet degenerative changes and ligament f lavum hypertrophy effacing the posterolateral thecal sac. There is moderate left-sided neural foramin al narrowing. Axial images at the L3-L4 level shows advanced facet degenerative changes and ligament hypertrophy wi th [id number] broad disc bulge. There is prominent spinal canal stenosis at this level axial image 13. There is moderate bilateral neural foraminal narrowing present, left greater than right. Axial images at the L4-L5 level show moderate to advanced right greater than left facet degenerative changes. There is broad disc bulge with right foraminal disc protrusion component. There is effacemen t of the anterior thecal sac. There is moderate right and mild left-sided neural foraminal narrowing. Axial images at the L5-S1 level some mild facet degenerative changes bilaterally. There is mild broad disc bulge minimally effacing anterior thecal sac. Bilateral neural foramina are patent. No suspicious incidental retroperitoneal findings. IMPRESSION: Prominent dextroconvex scoliosis and multilevel degenerative changes with most prominent spinal canal stenosis noted L3-L4 level. Further details are noted as discussed above.
== END | disposition home or self-care (01) ==
LOC: RADMRIMAIN 19:35
PROVIDERS: ATTEND Internal Medicine
DX: M48.061 Spinal stenosis, lumbar region without neurogenic claudication (principal); M51.16 Intervertebral disc disorders with radiculopathy, lumbar region; M47.815 Spondylosis without myelopathy or radiculopathy, thoracolumbar region; M47.816 Spondylosis without myelopathy or radiculopathy, lumbar region; M47.817 Spondylosis without myelopathy or radiculopathy, lumbosacral region; M41.86 Other forms of scoliosis, lumbar region; M24.28 Disorder of ligament, vertebrae
CPT/HCPCS: 72158; A9585

== ENCOUNTER → 2019-02-14 | Outpatient (CLI) | payer MEDICARE, BC ==
--- NOTE | 2019-02-14 16:35 | US ---
EXAMINATION TYPE: US abdomen limited DATE OF EXAM: 02/14/2019 COMPARISON: 01/25/2019 PET/CT CLINICAL HISTORY: R93.8 Abn Pet Scan,R68.89 Abn Clinical Finding. possible misregistration seen on re cent PET of spleen EXAM MEASUREMENTS: Spleen: 10.3 cm Left Kidney: 10.1 x 4.6 x 6.6 cm 1. Spleen: normal appearing placement of spleen without any other abnormalities noted. 2. Left Kidney: wnl No suspicious abnormality spleen correlating with findings. IMPRESSION: 1. Normal left upper quadrant ultrasound.
== END | disposition home or self-care (01) ==
LOC: RADUSWWP 07:06
PROVIDERS: ATTEND Internal Medicine Hematology & Oncology
DX: R68.89 Other general symptoms and signs (principal)
CPT/HCPCS: 76705

== ENCOUNTER → 2019-07-18 | Outpatient (CLI) | payer MEDICARE, BC ==
--- NOTE | 2019-07-20 11:53 | PE ---
EXAMINATION TYPE: PET CT fusion skull to thigh DATE OF EXAM: 07/18/2019 COMPARISON: No recent CT chest. Prior PET/CT: 01/25/2019 HISTORY: Lung cancer TECHNIQUE: Following the intravenous administration of 11.60 mCi of F-18 FDG, whole body images are performed from the skull base to the midthigh. Images are reviewed on the computer in the coronal, a xial, and sagittal planes. Reconstructed rotating images are created on independent workstation and reviewed on the computer. A localization and attenuation correction CT is performed in conjunction with the PET scan. DLP: 401.72 mGycm SCAN: Subsequent Scan Blood glucose: 90 mg/dL Average Mediastinum SUV: 1.49 Average Liver SUV: 2.17 FINDINGS: NECK: No abnormal uptake THORAX: There is a focal area of increased radiotracer accumulation within the right peribronchial re gion. This has an SUV value of 2.31. This is intermediate could reflect resolving neoplasm. Inflammat ory change is in the differential. There are 2 intense areas of increased uptake within the infrahilar region on the right and within th e subcarinal region. PET image 83. Subcarinal uptake is 4.09. Infrahilar uptake is 4.58. These areas are compatible with metastatic disease. There is some vague uptake within the left infrahilar region, PET image 89. This has an SUV value of 2.09. Finding is suspicious for metastatic disease. Inflammat ory change could be considered. Very faint increased signal may be within the right infrahilar region with an SUV value 1.7. PET image 89. This is more typical for inflammatory change. However given the findings early or improving metastatic disease should be considered ABDOMEN: Suspicious uptake is not evident. There is some mild uptake in the region of the hepatic fle xure which may be normal colonic activity. PELVIS: No abnormal uptake OSSEOUS STRUCTURES: No abnormal uptake LOCALIZATION CT: Ascending thoracic aorta at the level the main pulmonary artery is 3.4 cm. The main pulmonary artery the bifurcation is 2.6 cm. Suspicious adenopathy to correspond to the areas of uptak e are not readily apparent. Small pericardial effusion is present. Small nodularity is at the right l ateral lung base, series 3 image 108. This has an SUV value 1.32 and is nonspecific. Ill-defined hypo density within the lateral right lobe liver has an SUV value of 2.44 which is nonspecific and fairly close to average liver SUV. This measures 1.3 cm and is more suggestive for benign process. Monitorin g is recommended. COMPARISON: The right apical scarring is evident on PET image 73 and has an SUV value 1.11 compatible with background. This is likely post treatment scarring measuring 2.0 x 1.1 cm. This is stable from comparison. The radiotracer uptake within the lymph nodes is diminished from the comparison. The live r hypointense area is stable. IMPRESSION: 1. Previous right apical lung cancer has normal radiotracer compatible with scarring and posttreatmen t. 2. Continued improvement with diminishing radiotracer within the areas of uptake within the bilateral shelby. Most intense areas remain within the right infrahilar and subcarinal regions but diminished fr om comparison.
== END | disposition home or self-care (01) ==
LOC: RADPETMAIN 13:20
PROVIDERS: ATTEND Internal Medicine Hematology & Oncology
DX: C34.11 Malignant neoplasm of upper lobe, right bronchus or lung (principal)
CPT/HCPCS: 78815; A9552

== ENCOUNTER → 2019-10-08 | Outpatient (CLI) | payer MEDICARE, BC ==
--- NOTE | 2019-10-08 13:48 | MR ---
EXAMINATION TYPE: MR brain wo/w con DATE OF EXAM: 10/08/2019 COMPARISON: MRI brain 08/25/2016 [facility]. HISTORY: Headaches, lung ca 2017 CONTRAST: Performed utilizing 7.5 mL intravenous Gadavist gadolinium contrast. TECHNIQUE: Multiplanar, multiecho imaging on a 3.0 Jocelyn magnet is performed through the brain. Stud y is performed within 24 hours of arrival to the hospital. The craniovertebral junction is normal. The pituitary is normal. Diffusion-weighted imaging is performed. No abnormal hyperintensity is present to suggest an acute i ntracranial infarct or acute ischemic change. There are some scattered periventricular white matter changes greater in the right frontal region and centrum semiovale which are nonspecific but most likely related to chronic white matter ischemic nic nges. Largest area measures approximately 1.3 by 0.9 cm. Series 501 image 22. Previous measurements 1 .2 x 0.7. Small amount of white matter change may be within the right posterior lateral brain stem at the cereb ellar peduncle. This is new from 2017. No enhancement within this region is evident. No suspicious enhancement is evident. Ventricles and sulci are appropriate for the patient age. IMPRESSIONS: 1. Chronic-appearing white matter changes, present previously. 2. Some new white matter changes which are nonspecific but can be related to microvascular ischemic c hange within the right cerebellum and cerebellar peduncle. 3. No suspicious enhancing lesions.
== END | disposition home or self-care (01) ==
LOC: RADMRIMAIN 11:44
PROVIDERS: ATTEND Internal Medicine Hematology & Oncology
DX: R90.82 White matter disease, unspecified (principal); R51 Headache; C34.11 Malignant neoplasm of upper lobe, right bronchus or lung
CPT/HCPCS: 70553; A9585

== ENCOUNTER → 2020-02-06 | Outpatient (CLI) | payer MEDICARE, BC ==
--- NOTE | 2020-02-10 10:27 | PE ---
Nuclear medicine PET/CT HISTORY: Right lung cancer, C 34.11, subsequent Patient received 13.5 mCi F-18 FDG intravenously in delayed scanning was performed from the skull bas e to the mid thighs. Localization and attenuation correction CT scan was performed. Correlation to prior nuclear medicine PET/CT 07/18/2019 Chest and neck: There is no supraclavicular or cervical adenopathy. Stellate density in the right upp er lobe is stable. No suspicious uptake at this level. There are subcarinal, SUV 3.2, right hilar nod es which show reduced uptake, SUV 3.5 on the right, 2.4 the left as does the retrocaval pretracheal n ode with SUV 2.7 compared to prior exam. There is no pleural or change in pericardial effusion. ABDOMEN: There is no evident liver mass. No adrenal mass. No retroperitoneal adenopathy, no suspiciou s uptake within the abdomen. Osseous structures are stable. IMPRESSION: Less intense uptake involving the previously described nodes within the mediastinum and h nicho.
== END | disposition home or self-care (01) ==
LOC: RADPETMAIN 14:57
PROVIDERS: ATTEND Internal Medicine Hematology & Oncology
DX: C34.11 Malignant neoplasm of upper lobe, right bronchus or lung (principal)
CPT/HCPCS: 78815; A9552

== ENCOUNTER → 2020-07-30 | Outpatient (CLI) | payer MEDICARE, BC ==
[2020-07-30 15:20] LABS: Basophils # (A) 0.03 X 10*3/uL (0.00-0.10); Basophils % (A) 0.5 %; Eosinophils # (A) 0.96 X 10*3/uL (0.04-0.35); HCT 41.4 % (37.2-46.3); HGB 13.3 g/dL (12.0-15.0); Lymphocytes # (A) 1.46 X 10*3/uL (0.90-5.00); Lymphocytes % (A) 24.3 %; MCH 30.1 pg (27.0-32.0); MCHC 32.1 g/dL (32.0-37.0); MCV 93.7 fL (80.0-97.0); Monocytes # (A) 0.51 X 10*3/uL (0.20-1.00); Monocytes % (A) 8.5 %; Neutrophils # (A) 3.03 X 10*3/uL (1.80-7.70); Neutrophils % (A) 50.4 %; Platelet Count 235 X 10*3/uL (140-440); RBC 4.42 X 10*6/uL (4.10-5.20); RDW 14.1 % (11.5-14.5); WBC 6.01 X 10*3/uL (4.50-10.00)
[2020-07-30 19:14] LABS: African American GFR (CKD) 102.5 (60.0-200.0); Albumin 4.1 g/dL (3.80-4.90); Albumin/Globulin Ratio 2.56 (1.60-3.17); Anion Gap 5.9 mmol/L (4.00-12.00); BUN/Creat Ratio 35.71 Ratio (12.00-20.00); Calcium 8.8 mg/dL (8.7-10.3); Carbon Dioxide 29.1 mmol/L (21.6-31.8); Chol/HDL Ratio 2.95; Globulin 1.6 g/dL (1.6-3.3); LDL Cholesterol,Calculated 63.6 mg/dL (0.0-131.0); Non-African American GFR(CKD) 88.4 (60.0-200.0); Potassium 4.1 mmol/L (3.5-5.5); Total Bilirubin 0.9 mg/dL (0.2-1.2); Total Protein 5.7 g/dL (6.2-8.2); VLDL Calculation 18.4 mg/dL (5.00-40.00)
== END | disposition home or self-care (01) ==
LOC: LABWHC1 08:32
PROVIDERS: ATTEND Internal Medicine
DX: Z00.01 Encounter for general adult medical examination with abnormal findings (principal); C34.91 Malignant neoplasm of unspecified part of right bronchus or lung; E78.00 Pure hypercholesterolemia, unspecified
CPT/HCPCS: 36415; 80053; 80061; 85025

== ENCOUNTER → 2020-08-06 | Outpatient (CLI) | payer MEDICARE, BC ==
--- NOTE | 2020-08-09 10:25 | PE ---
EXAMINATION TYPE: PET CT fusion skull to thigh DATE OF EXAM: 08/06/2020 COMPARISON: No recent CT examinations. Prior PET/CT: 02/06/2020 HISTORY: Lung cancer bone metastases TECHNIQUE: Following the intravenous administration of 9.85 mCi of F-18 FDG, whole body images are p erformed from the skull base to the midthigh. Images are reviewed on the computer in the coronal, ax ial, and sagittal planes. Reconstructed rotating images are created on independent workstation and r eviewed on the computer. A localization and attenuation correction CT is performed in conjunction w ith the PET scan. DLP: 425.00 mGycm SCAN: Follow up subsequent Blood glucose: 96 mg/dL Average Mediastinum SUV: 1.67 Average Liver SUV: 1.85 FINDINGS: NECK: No abnormal uptake THORAX: There is a focus of radiotracer accumulation within the paratracheal region with an SUV value of 4.64. Previous measurement 2.49. This is increasing from prior study and is suspicious for renal current neoplasm. Image 71. There is a focus of radiotracer within the left small axillary lymph node with an SUV value 1.69. This appears new from comparison. While not markedly elevated, the appearan ce suggests a metastatic lesion. Intense radiotracer accumulation is in the subcarinal lymph node wit h an SUV value of 4.34. Previous measurement 3.15. A right infrahilar lymph node has an SUV value of 4.17. Previous measurement 3.42. A left punctate infrahilar lymph node has an SUV of 3.45. Previous m easurement 1.34. Image 77. Findings are suspicious for metastatic disease. ABDOMEN: There is a punctate area of hyperintensity within the right lobe liver with an SUV value of 3.31. Image 116. Metastatic lesion is not excluded. An additional similar punctate area in the mid ri ght lobe liver, image 110 with an SUV value of 3.05. Couple of additional punctate areas of hyperinte nsity may be within the liver. Radiotracer distribution to the liver however is somewhat heterogenous discrete corresponding abnormalities on the localization CT are not identified. PELVIS: No abnormal uptake OSSEOUS STRUCTURES: Abnormal uptake to correspond to the patient's known metastatic not identified. LOCALIZATION CT: Small pericardial effusion is present.. Right ovarian cyst may be present. COMPARISON: Uptake within the mediastinal and hilar lymph nodes and left axillary lymph nodes are inc reasing from comparison. Areas within the liver appear to be new IMPRESSION: 1. Areas of increasing uptake within the bilateral hilum, subcarinal region, pretracheal space, and l eft axillary lymph nodes are increasing from comparison suspicious for metastatic involvement. 2. Some nonspecific interval punctate areas of increased uptake within the liver may be present. Radi otracer distribution is somewhat heterogenous although these appear to be more focal and possibility of metastatic lesion within the liver should be considered.
== END ==
LOC: RADPETMAIN 09:43
PROVIDERS: ATTEND Internal Medicine Hematology & Oncology
DX: C34.11 Malignant neoplasm of upper lobe, right bronchus or lung (principal); C79.51 Secondary malignant neoplasm of bone
CPT/HCPCS: 78815; A9552

== ENCOUNTER → 2020-09-13 | Outpatient (CLI) | payer MEDICARE, BC ==
[2020-09-13 08:41] LABS: African American GFR (CKD) >90 (>60 ml/min/1.73 sqM); Blood Urea Nitrogen 31 mg/dL (7-17); Non-African American GFR(CKD) 86 (>60 ml/min/1.73 sqM)
--- NOTE | 2020-09-13 09:17 | CT ---
EXAMINATION TYPE: CT chest w con DATE OF EXAM: 09/13/2020 COMPARISON: Most recent PET/CT August 06, 2020 and older studies. HISTORY: Lung cancer CT DLP: 261.2 mGycm. Automated Exposure Control for Dose Reduction was Utilized. TECHNIQUE: CT scan of the thorax is performed following with IV Contrast, patient injected with 100 ml mL of Isovue 300. FINDINGS: LUNGS: Mild scattered parenchymal scarring is redemonstrated. Stable 1.9 x 1.2 cm right upper lung sc ar axial image 16. No new nodules or masses. No pleural effusion or pneumothorax seen. MEDIASTINUM: Prominent right hilar 1.4 x 1.2 cm lymph node axial image 23 corresponds to area of abno rmal hypermetabolic uptake on recent PET/CT. Stable enlarged low dense metabolic 1.8 x 1.0 cm right i nfrahilar lesion axial image 27. Hypermetabolic subcarinal along with left hilar and right tracheobronchial lymph nodes correspond to subcentimeter lymph nodes at these levels on today's CT. No interval lymph node enlargement ident ified. No pericardial effusion is seen. Mild cardiomegaly. OTHER: Stable near 1.0 cm hypodense lesion right hepatic lobe axial image 51. Underlying scoliosis ce ntered in the lumbar spine. IMPRESSION: Prominent right hilar lymph node corresponds to hypermetabolic adenopathy on recent PET/C T. Prominent but subcentimeter additional thoracic lymph nodes correspond to hypermetabolic lymph nod es on recent CT. Chronic changes without new acute pulmonary process. No new nodules or enlarging lym ph nodes identified.
== END | disposition home or self-care (01) ==
LOC: RADCTMAIN 08:01
PROVIDERS: ATTEND Internal Medicine Hematology & Oncology
DX: C34.11 Malignant neoplasm of upper lobe, right bronchus or lung (principal); Z88.0 Allergy status to penicillin
CPT/HCPCS: 82565; 84520; 71260; 36415; Q9967

== ENCOUNTER → 2020-10-05 | Outpatient (CLI) | payer MEDICARE, BC ==
--- NOTE | 2020-10-05 13:18 | MR ---
"EXAMINATION TYPE: MR brain wo/w con DATE OF EXAM: 10/05/2020 COMPARISON: MR brain 10/08/2019 HISTORY: Lung cancer since 2017. Hearing loss right ear. TECHNIQUE: Multiplanar, multisequence images of the brain and brainstem is performed without and with IV contras t, utilizing 7.5 mL intravenous Gadavist . FINDINGS: Diffusion weighted images demonstrate no evidence of a recent infarct or other diffusion ab normality. There is no extra-axial fluid collection. Within the junction region of the pontine tegme ntum and right middle cerebellar peduncle there is an oval focus of increased signal on inversion rec overy T2-weighted sequences with central lower signal, some vague enhancement is suspected with possi angel feeding vessel, axial image 28 postcontrast images. The lesion now measures approximately 1.4 cm in AP dimension by 0.9 cm and measured approximately 7 x 5 mm on prior exam. At the level of the temp oral bone on the right there is a bandlike area of increased signal on T2 and inversion recovery sequ ences which was noted on prior exam, immediate signal is noted on T1 weighted sequences at this level , the abnormalities asymmetric and does not show significant enhancement, the abnormality courses in an oblique fashion to the temporal bone. White matter hyperintensity shows a similar appearance to pr ior exam the frontal lobes. On the right The ventricular system and cisternal spaces are normal in si ze and appearance. The brain volume is age appropriate. Midline structures demonstrate normal morphology. The craniocervical junction appears within normal limits. Post contrast images demonstrate no additional abnormal enhancement. The dural venous sinuse s appear patent. The visualized sinuses are clear and the globes are intact. IMPRESSION: Findings are suspicious for metastatic focus to the brainstem. Correlate for possible prabhu or surgery to the temporal bone on the right, temporal bone CT may be of benefit as indicated. No oth er significant interval change. A Yellow level critical message alert has been initiated for Rachel Zaldivar MD via the [facility] 0 | Critical Results System on 10/05/2020 1:15 PM. This message alert has been sent to Rachel Zaldivar MD via the preferences provided by the clinician for the receipt of Radiology Critical Findings. [facility] ID [id number]."
== END | disposition home or self-care (01) ==
LOC: RADMRIMAIN 09:22
PROVIDERS: ATTEND Internal Medicine Hematology & Oncology
DX: C34.90 Malignant neoplasm of unspecified part of unspecified bronchus or lung (principal); H91.91 Unspecified hearing loss, right ear
CPT/HCPCS: 70553; A9585

== ENCOUNTER → 2020-11-05 | Outpatient (CLI) | payer MEDICARE, BC ==
--- NOTE | 2020-11-09 10:20 | PE ---
Nuclear medicine PET/CT HISTORY: Non-small cell lung carcinoma Patient received 10.5 mCi F-18 FDG intravenously in delayed scanning was performed through the skull base to the mid thighs. A localization and attenuation correction CT scan was performed. Correlation to prior nuclear medicine PET/CT 08/06/2020 Chest and neck: The abnormality in the right upper lobe shows a similar appearance, stellate density extensions is again noted, there is hypermetabolic uptake in the retrocaval pretracheal node which no w measures 5, previously measured 5.3, the right hilar node now measures 5 previously measured 5.2, s ubcarinal node measures 5 and previously measured 5.3, left hilar node measures 2.7 previously measur ed 3.5. No other significant interval change. IMPRESSION: Slight interval changes in hypermetabolic uptake is described.
== END | disposition home or self-care (01) ==
LOC: RADPETMAIN 09:03
PROVIDERS: ATTEND Internal Medicine Hematology & Oncology
DX: C34.11 Malignant neoplasm of upper lobe, right bronchus or lung (principal)
CPT/HCPCS: 78815; A9552

== ENCOUNTER → 2021-01-13 | Outpatient (CLI) | payer MEDICARE, BC ==
--- NOTE | 2021-01-14 13:37 | MR ---
EXAMINATION TYPE: MR brain wo/w con DATE OF EXAM: 01/14/2021 COMPARISON: MR brain 10/05/2020 HISTORY: Abnormal brain in september, f/u, ca hx, C 34.11 TECHNIQUE: Multiplanar, multisequence images of the brain and brainstem is performed without and with IV contras t, utilizing 8 mL intravenous Gadavist . FINDINGS: Diffusion weighted images demonstrate no evidence of a recent infarct or other diffusion ab normality. There is no extra-axial fluid collection or significant change and white matter signal ab normality. The lesion which shows peripheral increased signal on inversion recovery and T2-weighted s equences at the level of the right calli junction within the middle cerebellar peduncle is stable. Th e ventricular system and cisternal spaces are normal in size and appearance. The brain volume is age appropriate. Midline structures demonstrate normal morphology. The craniocervical junction appears within normal limits. Post contrast images show similar minimal patchy enhancement to that on prior exam. The dura l venous sinuses appear patent. The visualized sinuses are clear and the globes are intact. Right tem poral bone signal changes show similar appearance. IMPRESSION: Findings are similar to prior exam
== END | disposition home or self-care (01) ==
LOC: RADMRIMAIN 12:07
PROVIDERS: ATTEND Radiology Radiation Oncology
DX: C34.11 Malignant neoplasm of upper lobe, right bronchus or lung (principal); G93.9 Disorder of brain, unspecified
CPT/HCPCS: 70553; A9585

== ENCOUNTER → 2021-04-29 | Outpatient (CLI) | payer MEDICARE, BC ==
--- NOTE | 2021-05-02 13:43 | PE ---
Nuclear medicine PET/CT HISTORY: C 34.11, lung carcinoma, subsequent Patient received 10 mCi F-18 FDG intravenously and delayed scanning was performed from the skull base to the mid thighs. A localization and attenuation correction CT scan was performed. Correlation to prior nuclear medicine PET/CT 11/05/2020 Chest and neck: There is no cervical or supraclavicular adenopathy. Suprahilar density on the right w ith spiculated margins extending to the pleural surfaces noted on prior exam is again seen and shows increased uptake as compared to prior when SUV was 2.8, now SUV is 4.4, right hilar node shows SUV 4. 8 and was 5, subcarinal node SUV 4.5 and was 5, retrocaval pretracheal node SUV 2.8 and was 4.1, left hilar node SUV 2.6 and was 2.7. There is no pleural or pericardial effusion. Smooth nodule on axial image 83 in the right upper lobe lateral to the hilum is stable and does not show uptake. Minimal sof t tissues just superior to the azygos vein appears somewhat more conspicuous and axial image 76 witho ut associated uptake. There is no pleural or change in small pericardial effusion. Calcified granulom a present left upper lobe. ABDOMEN: Liver is stable, gallbladder unremarkable. No adrenal mass. Pancreas and spleen, kidneys are unchanged. No retroperitoneal adenopathy or ascites, no suspicious uptake. Pessary is present in the pelvis. No pelvic adenopathy or free fluid. Osseous structures show no suspicious uptake. Old left-sided rib fracture sixth rib shows no uptake. Pubic bone on the left shows a small sclerotic focus which is similar to prior. IMPRESSION: Interval change is in SUV values as described within the chest.
== END | disposition home or self-care (01) ==
LOC: RADPETMAIN 08:52
PROVIDERS: ATTEND Internal Medicine Hematology & Oncology
DX: C34.11 Malignant neoplasm of upper lobe, right bronchus or lung (principal); R91.8 Other nonspecific abnormal finding of lung field; J84.10 Pulmonary fibrosis, unspecified
CPT/HCPCS: 78815; A9552

== ENCOUNTER → 2021-06-21 | Outpatient (CLI) | payer MEDICARE, BC ==
--- NOTE | 2021-06-21 10:55 | MR ---
EXAMINATION TYPE: MR brain wo/w con DATE OF EXAM: 06/21/2021 COMPARISON: MR brain 01/13/2021 HISTORY: Mets, abnormal MR in September 2020 TECHNIQUE: Multiplanar, multisequence images of the brain and brainstem is performed without and with IV contras t, utilizing 8 mL intravenous Gadavist . FINDINGS: The abnormal signal seen in the right calli at the level of the middle cerebellar peduncle i s again noted and shows a similar appearance with some mild enhancement. Frontal white matter hyperin tensity and inversion recovery T2-weighted sequences is again seen without associated enhancement. Th e ventricular system and cisternal spaces are normal in size and appearance. The brain volume is age appropriate. Midline structures demonstrate normal morphology. The craniocervical junction appears within normal limits. No evident subacute infarct. The dural venous sinuses appear patent. The visualized sinuses a re clear and the globes are intact. Right temporal bone again shows some similar signal change to prabhu or IMPRESSION: Stable exam.
== END | disposition home or self-care (01) ==
LOC: RADMRIMAIN 08:50
PROVIDERS: ATTEND Radiology Radiation Oncology
DX: C34.11 Malignant neoplasm of upper lobe, right bronchus or lung (principal); C77.9 Secondary and unspecified malignant neoplasm of lymph node, unspecified; Z79.899 Other long term (current) drug therapy
CPT/HCPCS: 70553; A9585

== ENCOUNTER 2021-07-26 08:20 | Day surgery (SDC) | payer MEDICARE, BC ==
[2021-07-22 11:08] VITALS: BMI 28.1
[~2021-07-26 08:20] MED LIST changes: -LACTATED RINGERS 1,000 ML IV ONE; +LACTATED RINGERS 1,000 ML IV SCH; +LIDOCAINE 1% (10MG/ML) FOR IV START INTRADERMA PRN; -LIDOCAINE 1% INJ 10MG/ML (20 ML MDV) ONE; -PROPOFOL 10 MG/ML 20 ML VIAL IV ONE
[2021-07-26 08:48] VITALS: RESP 16; TEMP 98.6
[2021-07-26] MEDS ORDERED: PROPOFOL 10 MG/ML 20 ML VIAL IV ONE (08:59)
--- NOTE | 2021-07-26 09:05 | P.GSHP ---
History of Present Illness H&P Date: 07/26/21 Chief Complaint: Colon polyp, screening 70-year-old female here today for colonoscopy. Last colonoscopy 7 years ago. Patient with history of previous tubular adenoma. No bowel complaints. No family history of colon cancer. Patient has a history of lung cancer. 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 Elev pressure Lt eye. History of Any Multi-Drug Resistant Organisms: None Reported Past Surgical History: Breast Surgery, Orthopedic Surgery, Tonsillectomy Additional Past Surgical History / Comment(s): laparoscopy, A&P repair, rt foot martrins neuroma removed, oophorectomy x1, left breast biopsy, removal of skin cancer from back, Past Anesthesia/Blood Transfusion Reactions: No Reported Reaction, Family History of Problems w/ Anesthesia Additional Past Anesthesia/Blood Transfusion Reaction / Comment(s): Mother got "loopy with it." Smoking Status: Never smoker - Past Family History Sister(s) Family Medical History: Cancer Additional Family Medical History / Comment(s): lung cancer Father Family Medical History: Cancer Additional Family Medical History / Comment(s): prostate cancer Medications and Allergies Home Medications Medication Instructions Recorded Confirmed Type Aspirin [Adult Low Dose Aspirin EC] 81 mg PO HS 07/25/16 07/26/21 History Atorvastatin [Lipitor] 20 mg PO HS 07/25/16 07/26/21 History Calcium Carbonate [Calcium] 600 mg PO HS 07/25/16 07/26/21 History Cetirizine HCl [Zyrtec] 10 mg PO HS 07/25/16 07/26/21 History Cholecalciferol [Vitamin D3] 2,000 unit PO DAILY 07/25/16 07/26/21 History Docusate [Colace] 200 mg PO BID 07/25/16 07/26/21 History Multivitamins, Thera [Multivitamin] 1 tab PO DAILY 07/25/16 07/26/21 History SUMAtriptan SUCCINATE [Imitrex] 100 mg PO DIRECTED PRN 07/25/16 07/26/21 History atenoloL [Tenormin] 50 mg PO DAILY 07/25/16 07/26/21 History Erlotinib HCl [Tarceva] 150 mg PO QAM 08/30/18 07/26/21 History Dorzolamide-Timol 2.23%/0.68% 1 drop LEFT EYE BID 07/22/21 07/26/21 History [Cosopt] Allergies Allergy/AdvReac Type Severity Reaction Status Date / Time Penicillins Allergy Rash/Hives Verified 07/26/21 08:45 Surgical - Exam Vital Signs Temp Pulse Resp BP Pulse Ox 98.6 F 72 16 141/64 97 07/26/21 08:47 07/26/21 08:47 07/26/21 08:47 07/26/21 08:47 07/26/21 08:47 Physical exam: General: Well-developed, well-nourished HEENT: Normocephalic, sclerae nonicteric Abdomen: Nontender, nondistended Extremities: No edema Neuro: Alert and oriented Assessment and Plan (1) Colon cancer screening Narrative/Plan: Will proceed with colonoscopy at this time Current Visit: Yes Status: Acute Code(s): Z12.11 - ENCOUNTER FOR SCREENING FOR MALIGNANT NEOPLASM OF COLON SNOMED Code(s): 030484797
--- NOTE | 2021-07-26 09:25 | P.PCN ---
Date of Procedure: 07/26/21 Procedure(s) Performed: PREOPERATIVE DIAGNOSIS: Colon cancer screening, history of polyps POSTOPERATIVE DIAGNOSIS: Normal exam PROCEDURE: Colonoscopy ANESTHESIA: MAC SURGEON: Jorge Villafana M.D. SPECIMENS: None ENDOSCOPIC PROCEDURE: The patient was placed on the endoscopy table in the left decubitus position. The Olympus colonoscope was inserted into the anus and passed under direct visualization to the base of the cecum. The appendiceal orifice was visualized. From that point the scope was slowly withdrawn inspecting all surfaces carefully. There were no neoplastic inflammatory or polypoid lesions throughout the cecum, ascending, transverse, descending, sigmoid and rectum. There was no visible diverticulosis noted. Digital rectal examination was normal. The patient was taken to the recovery room in stable condition per anesthesia guidelines. RECOMMENDATIONS: Resume diet. Follow-up colonoscopy in 5-7 years given patient's history of previous colon polyps
[2021-07-26 09:48] VITALS: BP 121/73; PULSE 64
== END 2021-07-26 10:05 | disposition home or self-care (01) ==
LOC: ORWHC2ENDO 08:20
PROVIDERS: ATTEND Surgery
DX: Z12.11 Encounter for screening for malignant neoplasm of colon (principal); E78.5 Hyperlipidemia, unspecified; M19.90 Unspecified osteoarthritis, unspecified site; I47.1 Supraventricular tachycardia; Z85.118 Personal history of other malignant neoplasm of bronchus and lung; G43.909 Migraine, unspecified, not intractable, without status migrainosus; Z86.010 Personal history of colon polyps
CPT/HCPCS: 45378; J2704

== ENCOUNTER → 2021-10-21 | Outpatient (CLI) | payer MEDICARE, BC ==
--- NOTE | 2021-10-23 10:03 | PE ---
EXAMINATION TYPE: PET CT fusion skull to thigh DATE OF EXAM: 10/21/2021 COMPARISON: Prior PET/CT August 05, 2021 and older studies. HISTORY: Lung cancer progress study. Originally diagnosed 2017 right lung completed radiation treat ment in July 2021. TECHNIQUE: Following the intravenous administration of 9.88 mCi of F-18 FDG, whole body images are p erformed from the skull base to the midthigh. Images are reviewed on the computer in the coronal, ax ial, and sagittal planes. Reconstructed rotating images are created on independent workstation and r eviewed on the computer. A localization and attenuation correction CT is performed in conjunction w ith the PET scan. Blood glucose level was 93. SCAN: Subsequent Scan FINDINGS: SKULL BASE AND NECK: No new areas of abnormal hypermetabolic uptake. CHEST, MEDIASTINUM, AND HILAR REGION: Persistent right suprahilar spiculated nodule measuring 2.7 x 1.7 cm axial image 78 current study ve rsus 2.6 x 2.1 cm prior study, max SUV is 7.74 versus 7.28 on most recent prior. Hypermetabolic fairly stable near 1.0 cm right hilar lymph node is redemonstrated axial image 85, max SUV is improved 3.49 current study versus 5.26 prior study. Hypermetabolic near 1.0 cm subcarinal lymph node axial image 85 Max SUV is also improved 3.21 versus 5.11 on most recent prior. Subcentimeter mildly hypermetabolic right tracheobronchial and left hilar lymph nodes are felt stable . No new areas of abnormal hypermetabolic uptake. ABDOMEN AND PELVIS: Normal excretion. No new areas of abnormal hypermetabolic uptake. No new adrenal masses. OSSEOUS STRUCTURES: No new areas of abnormal hypermetabolic uptake. OTHER CT: Mild cardiomegaly with tiny pericardial effusion. Nasal septum deviated to right of midline . Mild underlying emphysematous change redemonstrated. Underlying significant scoliosis at the thoracolumbar spine redemonstrated. Multilevel facet arthropa thy the lumbar spine redemonstrated. IMPRESSION: Partial positive treatment response as detailed above.
== END | disposition home or self-care (01) ==
LOC: RADXRMAIN 10:39
PROVIDERS: ATTEND Internal Medicine Hematology & Oncology
DX: C34.11 Malignant neoplasm of upper lobe, right bronchus or lung (principal); Z92.3 Personal history of irradiation
CPT/HCPCS: 78815; A9552

== ENCOUNTER → 2021-12-26 | Outpatient (CLI) | payer MEDICARE, BC ==
--- NOTE | 2021-12-26 13:04 | MR ---
EXAMINATION TYPE: MR brain wo/w con DATE OF EXAM: 12/26/2021 COMPARISON: 06/21/2021 HISTORY: F/u Cancer CONTRAST: Performed utilizing 8.5 mL intravenous Gadavist gadolinium contrast. TECHNIQUE: Multiplanar, multiecho imaging on a 3.0 Jocelyn magnet is performed through the brain. Stud y is performed within 24 hours of arrival to the hospital. The craniovertebral junction is normal. The pituitary is normal. Diffusion-weighted imaging is performed. No abnormal hyperintensity is present to suggest an acute i ntracranial infarct or acute ischemic change. T2-weighted sequences there is somewhat irregular hyperintensity. This measures 1.6 x 1.5 cm, larger than the 1.3 cm previous. This has some central hypointensity on diffusion and inversion recovery lynne ghted sequences. There are a few small hyperintensities within the right frontal lobe deep white matter centrum semiov mandy and periventricular white matter. Punctate right parietal subcortical white matter hyperintensity is present in recovery. Findings are nonspecific. Differential diagnosis could include microvascular ischemic change. These findings were present previously . Ventricles and sulci are appropriate for the patient age. Following contrast there is some enhancement within the right brainstem. This was present previously. No additional abnormal masses evident. IMPRESSIONS: 1. Slight enlargement of the enhancing right brainstem lesion. 2. No new enhancing lesions evident
== END | disposition home or self-care (01) ==
LOC: RADMRIMAIN 11:40
PROVIDERS: ATTEND Radiology Radiation Oncology
DX: C34.11 Malignant neoplasm of upper lobe, right bronchus or lung (principal)
CPT/HCPCS: 70553; A9585

== ENCOUNTER → 2022-01-27 | Outpatient (CLI) | payer MEDICARE, BC ==
--- NOTE | 2022-01-29 11:36 | PE ---
EXAMINATION TYPE: PET CT fusion skull to thigh DATE OF EXAM: 01/27/2022 CLINICAL INDICATION:Female, 71 years old with history of C34.11 lung ca; TECHNIQUE: Following the intravenous administration of 12.1 mCi of F-18 FDG, whole body images a re performed from the skull base to the midthigh. Images are reviewed on the computer in the coronal , axial, and sagittal planes. Reconstructed rotating images are created on independent workstation a nd reviewed on the computer. A non-contrast CT is performed in conjunction with the PET scan. Gluco se level 92 mg/dL COMPARISON: CT 09/13/2020, PET/CT 10/21/2021 FINDINGS: Mediastinal SUV mean is 1.9. Hepatic parenchyma SUV mean is 2.4. SKULL BASE AND NECK: Left supraclavicular lymph node with max SUV 2.0 measuring 9 mm in short axis. Previously max SUV 1.3 and measuring 7 mm in short axis. CHEST, MEDIASTINUM, AND HILAR REGION: Right upper lobe lung mass decrease in FDG activity but increased with surrounding consolidation when compared to prior. The area of consolidation measures 3.1 x 2.3 cm in today's exam with max SUV 4.1 previously 7.7. Consolidation changes around prior mass do not definitely demonstrate increased FDG a ctivity. Mediastinal lymph nodes which measures similarly: Subcarinal lymph node max SUV 4.0 previously 2.4. Right low paratracheal lymph node max SUV 3.1, previously 3.0. ABDOMEN AND PELVIS: No suspicious FDG activity. OSSEOUS STRUCTURES: No suspicious FDG activity. OTHER CT: Atherosclerosis of the arterial vasculature. The heart is mildly enlarged for size. Right h epatic lobe cyst. Scoliosis changes of the spine. Multilevel disc degeneration changes of the spine. A suspensory ring within the vagina. IMPRESSION: Overall mixed response to therapy with decrease in metabolic activity of the right upper lung mass ho wever there is increased right upper lobe consolidation which could represent airspace consolidation in the setting of postobstructive atelectasis and/or infectious/inflammatory process. A subcarinal an d a left supraclavicular lymph node are mildly increased in FDG activity compared to prior. Continued attention on follow-up imaging.
== END | disposition home or self-care (01) ==
LOC: RADXRMAIN 10:18
PROVIDERS: ATTEND Internal Medicine Hematology & Oncology
DX: C34.11 Malignant neoplasm of upper lobe, right bronchus or lung (principal); R59.0 Localized enlarged lymph nodes
CPT/HCPCS: 78815; A9552

== ENCOUNTER → 2022-03-28 | Outpatient (CLI) | payer MEDICARE, BC ==
--- NOTE | 2022-03-29 07:52 | MR ---
EXAMINATION TYPE: MR brain wo/w con DATE OF EXAM: 03/28/2022 COMPARISON: 12/26/2021 HISTORY: Malignant neoplasm upper lobe CONTRAST: Performed utilizing 8 mL intravenous Gadavist gadolinium contrast. TECHNIQUE: Multiplanar, multiecho imaging on a 3.0 Jocelyn magnet is performed through the brain. Stud y is performed within 24 hours of arrival to the hospital. The craniovertebral junction is normal. The pituitary is normal. Diffusion-weighted imaging is performed. Suspicious hyperintensity to suggest acute ischemic changes are not evident. There is a hypointensity within the right brainstem at the level of the cerebellar peduncle. This is slightly increased in signal on T2-weighted sequences. This is stable in size currently measuring 1.5 x 1.5 cm. Previous measurement 1.6 x 1.5 cm. This area has a small vague area of enhancement, simila r to comparison. There are couple of focal hyperintensities within the deep white matter of the right frontal lobe. Th marie were present previously. Additional subcortical white matter changes are in the right frontal lob e, stable from comparison. Ventricles and sulci are appropriate for the patient age. No additional suspicious areas of enhancement are evident. IMPRESSIONS: 1. Stable appearance of an enhancing lesion within the right brain stem. 2. Subcortical and deep white matter changes right frontal lobe, stable from comparison.
== END | disposition home or self-care (01) ==
LOC: RADMRIMAIN 11:58
PROVIDERS: ATTEND Radiology Radiation Oncology
DX: C34.11 Malignant neoplasm of upper lobe, right bronchus or lung (principal); C79.51 Secondary malignant neoplasm of bone; R90.82 White matter disease, unspecified; G93.9 Disorder of brain, unspecified
CPT/HCPCS: 70553; A9585

== ENCOUNTER → 2022-05-05 | Outpatient (CLI) | payer MEDICARE, BC ==
--- NOTE | 2022-05-07 08:32 | PE ---
EXAMINATION TYPE: PET CT fusion skull to thigh DATE OF EXAM: 05/05/2022 CLINICAL INDICATION:Female, 71 years old with history of Lung Ca; TECHNIQUE: Following the intravenous administration of 9.68 mCi of F-18 FDG, whole body images are performed from the skull base to the midthigh. Images are reviewed on the computer in the coronal, a xial, and sagittal planes. Reconstructed rotating images are created on independent workstation and reviewed on the computer. A non-contrast CT is performed in conjunction with the PET scan. Glucose level 92 mg/dL COMPARISON: CT None, PET/CT 01/27/2022, and 10/21/2021 FINDINGS: Mediastinal SUV mean is 1.6. Hepatic parenchyma SUV mean is 2.5. SKULL BASE AND NECK: * Left supraclavicular lymph node measuring 8 mm in short axis max SUV 2.3, previously 8 mm and 2.0 and before that 1.3. CHEST, MEDIASTINUM, AND HILAR REGION: * Right upper lobe mass measuring 4.1 x 2.6 x 5.6 cm which is similar prior, Max SUV 4.8, previously 4.4 , and before that 7.1. Mediastinal lymph nodes with elevated FDG activity including: * Subcarinal max SUV 4.3, previously 4.0 and prior to that max SUV 2.4 and 2.0. * Right low paratracheal lymph node max SUV 3.2 , previously 3.1 and 3.0. ABDOMEN AND PELVIS: No suspicious radiotracer activity. OSSEOUS STRUCTURES: No suspicious radiotracer activity. * Left transverse process of T1 max SUV 2.7, previously 2.[address]: The heart is mildly enlarged for size. Atherosclerosis of the arterial vasculature scolioti c changes of the spine. Pessary ring is noted in the vagina. Scattered airspace tree-in-bud opacities right lower lobe and middle lobe and right upper lobe. There is pulmonary vascular congestion in the right upper lobe only which is similar prior. IMPRESSION: 1. Mild progression of disease with mildly increasing FDG activity of all metabolic metastatic sites when compared to immediate prior. 2. There is scattered subtle airspace opacities again seen in the right lung which could represent p osttreatment changes. Correlate for infection/inflammation.
== END | disposition home or self-care (01) ==
LOC: RADPETMAIN 10:14
PROVIDERS: ATTEND Internal Medicine Hematology & Oncology
DX: C34.11 Malignant neoplasm of upper lobe, right bronchus or lung (principal); R91.8 Other nonspecific abnormal finding of lung field
CPT/HCPCS: 78815; A9552

== ENCOUNTER → 2022-08-11 | Outpatient (CLI) | payer MEDICARE, BC ==
--- NOTE | 2022-08-13 11:49 | PE ---
EXAMINATION TYPE: PET CT fusion skull to thigh DATE OF EXAM: 08/11/2022 CLINICAL INDICATION:Female, 72 years old with history of C34.11; TECHNIQUE: Following the intravenous administration of 11.45 mCi of F-18 FDG, whole body images are performed from the skull base to the midthigh. Images are reviewed on the computer in the coronal, axial, and sagittal planes. Reconstructed rotating images are created on independent workstation and reviewed on the computer. A non-contrast CT is performed in conjunction with the PET scan. Glucose level 93 mg/dL COMPARISON: CT None, PET/CT 05/05/2022, 01/27/2022, FINDINGS: Mediastinal SUV mean is 2.6. Hepatic parenchyma SUV mean is 2.4. SKULL BASE AND NECK: * Left supraclavicular lymph node measuring 6 mm in short axis max SUV 2.0, previously 2.3, 2.0, 1.3 . CHEST, MEDIASTINUM, AND HILAR REGION: * Right upper lung consolidation in the superior aspect of the right pulmonary hilum max SUV 4.9, pr eviously 4.8, 4.4 , and 7.1. Area measures roughly 4.4 x 3.6 cm, previously 4.1 x 2.6 cm and on 022 measuring 3.1 x 2.8 cm. * Subcarinal lymph node axis SUV 4.3 previously 4.3, 2.4 and 2.0. * Scattered airspace opacities throughout the right lower lung. * Right low paratracheal lymph node max SUV 2.9, previously 3.2, 3.1 and 3.0. ABDOMEN AND PELVIS: No suspicious radiotracer activity. OSSEOUS STRUCTURES: No suspicious radiotracer activity. * Left transverse process of T1 max SUV 1.7, previously 2.7, 2.[address]: Atherosclerosis of the arterial vasculature. The heart is mildly enlarged for size. Right h epatic lobe cyst. Scoliosis changes of the spine. Multilevel disc degeneration changes of the spine. A suspensory ring within the vagina. Small pericardial effusion. IMPRESSION: 1. Right upper lobe consolidation changes has steadily increased in size from 01/27/2022. There is sta ble metabolic activity however. 2. The remainder of the areas of metastatic disease are stable to de creased in metabolic activity. 2. Right lung airspace opacities correlate for posttreatment changes, with superimposed infection/in flammatory process not excluded.
== END | disposition home or self-care (01) ==
LOC: RADPETMAIN 11:45
PROVIDERS: ATTEND Internal Medicine Hematology & Oncology
DX: C34.11 Malignant neoplasm of upper lobe, right bronchus or lung (principal); R91.8 Other nonspecific abnormal finding of lung field
CPT/HCPCS: 78815; A9552

== ENCOUNTER → 2022-10-20 | Outpatient (CLI) | payer MEDICARE, BC ==
--- NOTE | 2022-10-20 15:53 | XR ---
EXAMINATION TYPE: XR chest 2V DATE OF EXAM: 10/20/2022 COMPARISON: NONE HISTORY: Shortness of breath TECHNIQUE: Frontal and lateral views of the chest are obtained. FINDINGS: Scattered senescent parenchymal changes noted. Hyperinflation compatible with COPD. Patchy infiltrate right perihilar and basilar regions with underlying effusion. Correlate for pneumon ia. Underlying neoplasm is not excluded. Follow-up until resolution advised. The left lung is clear. Deformity of left rib 6. May relate to a remote fracture. Heart size is stable. Mediastinal structures are stable and grossly unremarkable. No evidence for hilar prominence. Degenerative changes dorsal spine. IMPRESSION: 1. Patchy infiltrate right perihilar and basilar regions with underlying effusion. Correlate for pneu monia. Underlying neoplasm is not excluded. Follow-up until resolution advised.
== END | disposition home or self-care (01) ==
LOC: RADXRMAIN 15:25
PROVIDERS: ATTEND Nurse Practitioner Family
DX: C34.90 Malignant neoplasm of unspecified part of unspecified bronchus or lung (principal); R91.8 Other nonspecific abnormal finding of lung field
CPT/HCPCS: 71046

== ENCOUNTER → 2022-10-30 | Outpatient (CLI) | payer MEDICARE, BC ==
[2022-10-30 10:50] LABS: African American GFR (CKD) >90 (>60 ml/min/1.73 sqM); Blood Urea Nitrogen 16 mg/dL (7-17); Non-African American GFR(CKD) >90 (>60 ml/min/1.73 sqM)
--- NOTE | 2022-10-30 11:28 | CT ---
EXAMINATION TYPE: CT chest w con DATE OF EXAM: 10/30/2022 COMPARISON: PET/CT 08/11/2022 HISTORY: Hx lung ca and PNE. C/O cough, sharp chest pains CT DLP: 286.90 mGycm, Automated exposure control for dose reduction was used. CONTRAST: Performed injected with 100 mL of Isovue 300. TECHNIQUE: Axial images were obtained at 5 mm thick sections. Reconstructed images are reviewed on [employer] computer in the coronal plane. FINDINGS: Portion of the thyroid visualized is normal. There is a 0.6 cm nodule left upper lung field. Series 4 image 26. There is a 0.6 cm anterior left lung nodule. Series 4 image 28. There are numerous smaller nodules scattered within the left lung. Irregular mass within the right upper lung field and right middle lobe. Hilar region. This is narrowi ng the right middle lobe bronchus. Large right pleural effusion is present. There may be some adjacen t compressive atelectasis. No enlarged mediastinal or hilar adenopathy is evident. The ascending aorta diameter at the level o f the main pulmonary artery is 3.3 cm. The main pulmonary artery diameter at the bifurcation is 2.5 cm. Small to moderate sized pericardial effusion is present. Limited CT sections are obtained through the upper abdomen. 1.1 cm cyst is within the right lobe live r. IMPRESSIONS: 1. Large right pleural effusion. Some compressive atelectasis may be present. 2. Persistent right perihilar and infrahilar lung mass is narrowing the right middle lobe bronchus. 3. Small to moderate pericardial effusion. 4. Increasing number of numerous punctate nodularities within the left lung. Couple of enlarging nodu les measuring 0.6 cm are noted above.
== END | disposition home or self-care (01) ==
LOC: RADCTMAIN 09:47
PROVIDERS: ATTEND Family Medicine
DX: C34.90 Malignant neoplasm of unspecified part of unspecified bronchus or lung (principal); J90 Pleural effusion, not elsewhere classified; I31.39 Other pericardial effusion (noninflammatory); R91.8 Other nonspecific abnormal finding of lung field; R07.9 Chest pain, unspecified; R06.9 Unspecified abnormalities of breathing; J18.9 Pneumonia, unspecified organism
CPT/HCPCS: 82565; 84520; 71260; 36415; Q9967

== ENCOUNTER 2022-11-02 11:31 | Inpatient (IN) | payer MEDICARE, BC ==
[2022-11-02] MEDS ORDERED: KETOROLAC 15 MG/ML 1 ML VIAL IVP STA (12:38)
--- NOTE | 2022-11-02 12:59 | ED ---
General Adult HPI - General Chief complaint: Shortness of Breath Stated complaint: SOB Time Seen by Provider: 11/02/22 11:53 Source: patient, EMS, RN notes reviewed, old records reviewed Mode of arrival: EMS Limitations: no limitations - History of Present Illness Initial comments: Patient is a 72-year-old female presents emergency Department complaining of shortness breath. Has been somewhat chronic, worsening over the last month. Has history of lung cancer, currently on maintenance therapy. Was diagnosed with a pleural effusion is scheduled to have a thoracentesis completed on November 07, however her shortness of breath has gotten worse. He was diagnosed originally with pneumonia on October 20. On October [address] which showed a large right pleural effusion with compressive atelectasis as well as a persistent right lung mass and a small pericardial effusion. States she is having progressive worsening dyspnea. Has a nonproductive cough. Also noticed some left-sided chest wall pain that is worse with coughing and deep inspiration . That has been present for a few days as well. Shortness of breath became worse which is why she presents for further evaluation at this time. Denies any lower extremity edema. Denies any headaches. Denies any fevers. No known sick contacts. Denies any abdominal pain or nausea or vomiting. No other acute complaints. Presents for further evaluation. - Related Data Home Medications Medication Instructions Recorded Confirmed Atorvastatin [Lipitor] 20 mg PO HS 07/25/16 11/02/22 Calcium Carbonate [Calcium] 600 mg PO HS 07/25/16 11/02/22 Cetirizine HCl [Zyrtec] 10 mg PO HS 07/25/16 11/02/22 Docusate [Colace] 200 mg PO BID 07/25/16 11/02/22 Multivitamins, Thera [Multivitamin] 1 tab PO DAILY 07/25/16 11/02/22 SUMAtriptan succinate [Imitrex] 100 mg PO DAILY PRN 07/25/16 11/02/22 atenoloL [Tenormin] 50 mg PO DAILY 07/25/16 11/02/22 Erlotinib HCl [Tarceva] 150 mg PO DAILY 08/30/18 11/02/22 Cholecalciferol [Vitamin D3 (25 50 mcg PO DAILY 11/02/22 11/02/22 Mcg = 1000 Iu)] Ciprofloxacin HCl [Cipro] 500 mg PO Q12HR 11/02/22 11/02/22 Dorzolamide/Timolol/Pf 1 drop LEFT EYE HS 11/02/22 11/02/22 [Dorzolamide 2%-Timolol 0.5%] Montelukast [Singulair] 10 mg PO DAILY 11/02/22 11/02/22 Allergies Allergy/AdvReac Type Severity Reaction Status Date / Time Penicillins Allergy Rash/Hives Verified 11/02/22 13:21 Review of Systems ROS Statement: Those systems with pertinent positive or pertinent negative responses have been documented in the HPI. Review of Systems: CONST: Denies fever EYES: Denies blurry vision ENT: Denies nasal congestion C/V: Endorses chest wall pain RESP: Endorses shortness of breath GI: Denies abdominal pain : Denies dysuria SKIN: Denies rash. MSK: Denies joint pain. NEURO: Denies headache ROS Other: All systems not noted in ROS Statement are negative. Past Medical History Past Medical History: Cancer, Hyperlipidemia, Osteoarthritis (OA), Pneumonia, Supraventricular Tachycardia (SVT) Additional Past Medical History / Comment(s): migraines, constipation, hx skin cancer, " a lot of belching", lung cancer History of Any Multi-Drug Resistant Organisms: None Reported Past Surgical History: Breast Surgery, Orthopedic Surgery, Tonsillectomy Additional Past Surgical History / Comment(s): laparoscopy, A&P repair, rt foot martrins neuroma removed, oophorectomy, left breast biopsy, removal of skin cancer from back, Past Anesthesia/Blood Transfusion Reactions: No Reported Reaction Past Psychological History: No Psychological Hx Reported Smoking Status: Never smoker Past Alcohol Use History: Rare Past Drug Use History: None Reported - Past Family History Sister(s) Family Medical History: Cancer Additional Family Medical History / Comment(s): lung cancer Father Family Medical History: Cancer Additional Family Medical History / Comment(s): prostate cancer General Exam - General Exam Comments Initial Comments: General: Appears in no acute distress. HEAD: Normal with no signs of head trauma. EYES: PERRLA, EOMI, conjunctiva normal, no discharge. ENT: Hearing grossly intact, normal oropharynx. RESPIRATORY: Reduced breath sounds in the right lower quadrant. Hypoxic on room air. Typically is not on oxygen. Mild increased work of breathing. C/V: Regular rate and rhythm. S1 and S2 auscultated, no edema, peripheral pulses 2+ and intact throughout. Left-sided chest wall pain worse on palpation. ABD: Abd is soft, nontender, nondistended EXT: Normal range of motion, no obvious deformity SKIN: No rashes or lesions observed on exposed skin. NEURO: Alert and oriented 4. Limitations: no limitations Course Vital Signs 11/02/22 11/02/22 11/02/22 11:43 11:47 12:52 Temperature 98.2 F Pulse Rate 100 100 Respiratory 22 22 20 Rate Blood Pressure 137/79 126/79 O2 Sat by Pulse 92 L 92 L Oximetry 11/02/22 14:23 Temperature Pulse Rate 104 H Respiratory 18 Rate Blood Pressure 129/84 O2 Sat by Pulse 93 L Oximetry Medical Decision Making - Medical Decision Making Was pt. sent in by a medical professional or institution (, PA, COMMODITY DIRECTOR, urgent care, hospital, or long term...) When possible be specific @ -No Did you speak to anyone other than the patient for history (EMS, parent, family, police, friend...)? What history was obtained from this source @ -No Did you review nursing and triage notes (agree or disagree)? Why? @ -I reviewed and agree with nursing and triage notes Were old charts reviewed (outside hosp., previous admission, EMS record, old EKG, old radiological studies, urgent care reports/EKG's, long term records)? Report findings @ -Reviewed imaging from earlier this month earlier this week. Differential Diagnosis (chest pain, altered mental status, abdominal pain women, abdominal pain men, vaginal bleeding, weakness, fever, dyspnea, syncope, headache, dizziness, GI bleed, back pain, seizure, CVA, palpatations, mental health, musculoskeletal)? @ -Differential Dyspnea: Coronary syndrome, arrhythmia, tamponade, asthma, COPD, pulmonary embolism, pneumonia, pneumothorax, pulmonary effusion, anaphylaxis, diabetic ketoacidosis, flailed chest, pulmonary contusion, diaphragmatic rupture, anemia, neuromuscular, this is not meant to be an all-inclusive list. EKG interpreted by me (3pts min.). @ -As above X-rays interpreted by me (1pt min.). @ -Chest x-ray does reveal a significantly sized right pleural effusion. This is a patchy upper lobe airspace opacities which seems to also be present on CT from earlier in the week. CT interpreted by me (1pt min.). @ -None done U/S interpreted by me (1pt. min.). @ -None done What testing was considered but not performed or refused? (CT, X-rays, U/S, labs)? Why? @ -None What meds were considered but not given or refused? Why? @ -None Did you discuss the management of the patient with other professionals (professionals i.e. DrMaria R, PA, COMMODITY DIRECTOR, lab, RT, psych nurse, social security assessor, curing oven attendant, teacher, chief wellness officer, dependency case manager)? Give summary @ -Discussed with Dr. Woody who accepted the patient. Was in agreement with the plan for just watching a troponin at this time. We'll consult cardiology their way. We will hold off on heparin initiation at this time. The troponin is likely secondary to hypoxia as well as the pleural effusion. Was smoking cessation discussed for >3mins.? @ -No Was critical care preformed (if so, how long)? @ -No Were there social determinants of health that impacted care today? How? (Homelessness, low income, unemployed, alcoholism, drug addiction, transportation, low edu. Level, literacy, decrease access to med. care, senior care, rehab)? @ -No Was there de-escalation of care discussed even if they declined (Discuss DNR or withdrawal of care, Hospice)? DNR status @ -No What co-morbidities impacted this encounter? (DM, HTN, Smoking, COPD, CAD, Cancer, CVA, ARF, Chemo, Hep., AIDS, mental health diagnosis, sleep apnea, morbid obesity)? @ -None Was patient admitted / discharged? Hospital course, mention meds given and route, prescriptions, significant lab abnormalities, going to OR and other pertinent info. @ -Based on the patient's presentation and physical exam, I'm concerned for likely worsening of her pleural effusion on the right. She is hypoxic on room air. She also has a suspected chest wall pain on the left. We will obtain cardio pulmonary labs and screening EKG and chest x-ray. She was placed on nasal cannula oxygen. She'll be given Toradol for her suspected chest wall discomfort. She was in agreement this plan. He'll likely be admitted to the hospital. EKG showed T-wave inversions with no prior EKG for comparison.Chest x-ray reveals the large right-sided pleural effusion. Labs are remarkable for leukocytosis that is minimal at 10. Troponin is elevated to 0.148 I suspect this is likely secondary to the large pleural effusion we will continue to monitor. Low concern for ACS at this time. We will trend it to ensure remains flat. Patient was given 324 mg of aspirin. Viral swabs are negative. I discussed results with the patient. She'll be admitted to the hospital. Pulmonology, Dr. Gonzalez of oncology will be consulted. Cardiology will also be consulted for evaluation, and we will attempt to obtain the records for the outpatient echo obtained earlier this week. Patient was in agreement this plan. I spoke with her PCP, Dr. Woody who was in agreement with the plan, including the and for monitoring troponins at this time. Patient was admitted in serious condition. She requires a thoracentesis. Undiagnosed new problem with uncertain prognosis? @ -No Drug Therapy requiring intensive monitoring for toxicity (Heparin, Nitro, Insulin, Cardizem)? @ -No Were any procedures done? @ -No Diagnosis/symptom? @ -Lung cancer Acute, or Chronic, or Acute on Chronic? @ -Chronic Uncomplicated (without systemic symptoms) or Complicated (systemic symptoms)? @ -Complicated Side effects of treatment? @ -none Exacerbation, Progression, or Severe Exacerbation] @ -no Poses a threat to life or bodily function? @ -yes Diagnosis/symptom? @ -Right pleural effusion, hypoxic respiratory failure Acute, or Chronic, or Acute on Chronic? @ -Acute Uncomplicated (without systemic symptoms) or Complicated (systemic symptoms)? @ -Complicated Side effects of treatment? @ -none Exacerbation, Progression, or Severe Exacerbation] @ -no Poses a threat to life or bodily function? @ -yes Diagnosis/symptom? @ -Elevated troponin, likely secondary to pleural effusion and hypoxia Acute, or Chronic, or Acute on Chronic? @ -Acute Uncomplicated (without systemic symptoms) or Complicated (systemic symptoms)? @ -uncomplicated Side effects of treatment? @ -none Exacerbation, Progression, or Severe Exacerbation] @ -no Poses a threat to life or bodily function? @ -no - Lab Data Result diagrams: 11/02/22 12:46 11/02/22 12:46 Lab Results 11/02/22 11/02/22 11/02/22 Range/Units 12:46 12:46 12:46 WBC 10.7 H (3.8-10.6) k/uL RBC 4.83 (3.80-5.40) m/uL Hgb 13.9 (11.4-16.0) gm/dL Hct 43.0 (34.0-46.0) % MCV 89.0 (80.0-100.0) fL MCH 28.8 (25.0-35.0) pg MCHC 32.3 (31.0-37.0) g/dL RDW 13.2 (11.5-15.5) % Plt Count 323 (150-450) k/uL MPV 8.7 Neutrophils % 77 % Lymphocytes % 12 % Monocytes % 8 % Eosinophils % 2 % Basophils % 0 % Neutrophils # 8.3 H (1.3-7.7) k/uL Lymphocytes # 1.3 (1.0-4.8) k/uL Monocytes # 0.8 (0-1.0) k/uL Eosinophils # 0.2 (0-0.7) k/uL Basophils # 0.0 (0-0.2) k/uL PT 10.1 (9.0-12.0) sec INR 0.9 (<1.2) APTT 25.3 (22.0-30.0) sec Sodium 135 L (137-145) mmol/L Potassium 3.7 (3.5-5.1) mmol/L Chloride 98 (98-107) mmol/L Carbon Dioxide 28 (22-30) mmol/L Anion Gap 9 mmol/L BUN 11 (7-17) mg/dL Creatinine 0.51 L (0.52-1.04) mg/dL Est GFR (CKD-EPI)AfAm >90 (>60 ml/min/1.73 sqM) Est GFR (CKD-EPI)NonAf >90 (>60 ml/min/1.73 sqM) Glucose 115 H (74-99) mg/dL Calcium 8.2 L (8.4-10.2) mg/dL Magnesium 1.7 (1.6-2.3) mg/dL Total Bilirubin 0.9 (0.2-1.3) mg/dL AST 38 H (14-36) U/L ALT 26 (4-34) U/L Alkaline Phosphatase 130 H (38-126) U/L Troponin I (0.000-0.034) ng/mL Total Protein 5.9 L (6.3-8.2) g/dL Albumin 3.1 L (3.5-5.0) g/dL Influenza Type A (PCR) (Not Detectd) Influenza Type B (PCR) (Not Detectd) RSV (PCR) (Not Detectd) SARS-CoV-2 (PCR) (Not Detectd) 11/02/22 11/02/22 Range/Units 12:46 12:46 WBC (3.8-10.6) k/uL RBC (3.80-5.40) m/uL Hgb (11.4-16.0) gm/dL Hct (34.0-46.0) % MCV (80.0-100.0) fL MCH (25.0-35.0) pg MCHC (31.0-37.0) g/dL RDW (11.5-15.5) % Plt Count (150-450) k/uL MPV Neutrophils % % Lymphocytes % % Monocytes % % Eosinophils % % Basophils % % Neutrophils # (1.3-7.7) k/uL Lymphocytes # (1.0-4.8) k/uL Monocytes # (0-1.0) k/uL Eosinophils # (0-0.7) k/uL Basophils # (0-0.2) k/uL PT (9.0-12.0) sec INR (<1.2) APTT (22.0-30.0) sec Sodium (137-145) mmol/L Potassium (3.5-5.1) mmol/L Chloride (98-107) mmol/L Carbon Dioxide (22-30) mmol/L Anion Gap mmol/L BUN (7-17) mg/dL Creatinine (0.52-1.04) mg/dL Est GFR (CKD-EPI)AfAm (>60 ml/min/1.73 sqM) Est GFR (CKD-EPI)NonAf (>60 ml/min/1.73 sqM) Glucose (74-99) mg/dL Calcium (8.4-10.2) mg/dL Magnesium (1.6-2.3) mg/dL Total Bilirubin (0.2-1.3) mg/dL AST (14-36) U/L ALT (4-34) U/L Alkaline Phosphatase (38-126) U/L Troponin I 0.148 H* (0.000-0.034) ng/mL Total Protein (6.3-8.2) g/dL Albumin (3.5-5.0) g/dL Influenza Type A (PCR) Not Detected (Not Detectd) Influenza Type B (PCR) Not Detected (Not Detectd) RSV (PCR) Not Detected (Not Detectd) SARS-CoV-2 (PCR) Not Detected (Not Detectd) - EKG Data -: EKG Interpreted by Me EKG Comments: 12-lead Electrocardiogram Interpretation Note EKG was reviewed and interpreted by myself. 12-lead ECG performed at 1248 is interpreted by me as revealing sinus tachycardia at a rate of 101 beats per minute. [place] is normal. NM Intervals 136 ms, QRS duration is 94 ms, QTc is 439 ms. There are T-wave inversions present in leads V2 through V5, no prior EKG for comparison.. There were no ST or T wave abnormalities to suggest myocardial ischemia or injury. R wave progression across the precordium was satisfactory. . Disposition Clinical Impression: Hypoxia, Pleural effusion, Dyspnea, Elevated troponin, Lung cancer Disposition: ADMITTED IP TO THIS HOSP Condition: Serious Time of Disposition: 14:35
[2022-11-02 13:14] LABS: Basophils % (A) 0 %; Eosinophils # (A) 0.2 k/uL (0-0.7); Eosinophils % (A) 2 %; HGB 13.9 gm/dL (11.4-16.0); Lymphocytes # (A) 1.3 k/uL (1.0-4.8); Lymphocytes % (A) 12 %; MCH 28.8 pg (25.0-35.0); MCHC 32.3 g/dL (31.0-37.0); Mean Platelet Volume 8.7; Monocytes # (A) 0.8 k/uL (0-1.0); Monocytes % (A) 8 %; Neutrophils # (A) 8.3 k/uL (1.3-7.7); Neutrophils % (A) 77 %; Platelet Count 323 k/uL (150-450); RBC 4.83 m/uL (3.80-5.40); RDW 13.2 % (11.5-15.5); WBC 10.7 k/uL (3.8-10.6)
--- NOTE | 2022-11-02 13:26 | XR ---
EXAMINATION TYPE: XR chest 2V DATE OF EXAM: 11/02/2022 1:17 PM COMPARISON: Chest radiographs from -, CT chest 10/30/2022 TECHNIQUE: XR chest 2V Frontal and lateral views of the chest. CLINICAL INDICATION:Female, 72 years old with history of difficulty breathing; FINDINGS: Lungs/Pleura: Redemonstration of large right pleural effusion with perihilar consolidation correspond ing to known lung mass/adenopathy. Patchy right upper lobe airspace opacities redemonstrated. No pneu mothorax Heart/mediastinum: Cardiomediastinal silhouette is partially obscured due to overlying and adjacent o pacities. Atherosclerotic calcifications are seen in the aorta. Musculoskeletal: No acute osseous pathology. IMPRESSION: 1. Redemonstration of large right pleural effusion with perihilar consolidation corresponding to kno wn lung mass/adenopathy. 2. Patchy right upper lobe airspace opacities may represent pulmonary edema and/or infiltrate.
[2022-11-02 13:32] LABS: ALT 26 U/L (4-34); AST 38 U/L (14-36); African American GFR (CKD) >90 (>60 ml/min/1.73 sqM); Albumin 3.1 g/dL (3.5-5.0); Alkaline Phosphatase 130 U/L (38-126); Anion Gap 9 mmol/L; Blood Urea Nitrogen 11 mg/dL (7-17); Calcium 8.2 mg/dL (8.4-10.2); Carbon Dioxide 28 mmol/L (22-30); Chloride 98 mmol/L (98-107); Glucose 115 mg/dL (74-99); Magnesium 1.7 mg/dL (1.6-2.3); Non-African American GFR(CKD) >90 (>60 ml/min/1.73 sqM); Potassium 3.7 mmol/L (3.5-5.1); Sodium 135 mmol/L (137-145); Total Bilirubin 0.9 mg/dL (0.2-1.3); Total Protein 5.9 g/dL (6.3-8.2)
[2022-11-02 13:35] LABS: INR 0.9 (<1.2); Partial Thromboplastin Time 25.3 sec (22.0-30.0); Prothrombin Time 10.1 sec (9.0-12.0)
[2022-11-02] MEDS ORDERED: ASPIRIN 81 MG PO STA (13:56)
[2022-11-02] MEDS ORDERED: ACETAMINOPHEN TAB 325 MG TAB PO PRN (14:48)
[2022-11-02] MEDS ORDERED: NALOXONE 0.4 MG/ML 1 ML VIAL IV PRN (14:48)
[2022-11-02] MEDS ORDERED: SUMAtriptan succinate 50 MG TAB PO PRN (17:11)
[2022-11-02] MEDS: DOCUSATE 100 MG CAP PO SCH (20:01)
[2022-11-02] MEDS ORDERED: HYDROcodone/APAP 5-325MG 1 EACH TAB PO PRN (20:42)
[2022-11-02] MEDS: KETOROLAC 15 MG/ML 1 ML VIAL IVP PRN (20:53)
[2022-11-02] MEDS ORDERED: LORATADINE 10 MG TAB PO SCH (21:00)
[2022-11-02] MEDS ORDERED: ATORVASTATIN 20 MG TAB PO SCH (21:00)
[2022-11-02] MEDS ORDERED: CALCIUM CARBONATE 500 MG CHEWABLE PO SCH (21:00)
[2022-11-02] MEDS ORDERED: DORZOLAMIDE-TIMOLOL 2.23%/0.68 10ML BTL LEFT EYE SCH (21:00)
--- NOTE | 2022-11-03 03:30 | HP ---
HISTORY AND PHYSICAL CHIEF COMPLAINT: Right-sided hip pain, shortness of breath. 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 She was diagnosed with a lung malignancy several years ago and has done very well on suppressive therapy. She is a nonsmoker. Recently, she has been getting a little bit more short of breath and was recently found to have a left pleural effusion with a small pericardial effusion. She was becoming more short of breath and brought herself to the emergency room. She has had no headaches, confusion, change in vision or hearing, cough, hemoptysis, sputum production, orthopnea, PND, abdominal pain, nausea, vomiting, diarrhea, melena, urinary complaints, etc. PAST MEDICAL HISTORY, FAMILY HISTORY AND PERSONAL AND SOCIAL HISTORY: Otherwise unremarkable and noncontributory. ALLERGIES: She is not allergic to any medication. MEDICATIONS: She has been on, 1. Cipro recently because of the shortness of breath and fever, it was thought that there may have been pneumonitis at that time. 2. She is on Ventolin HFA. 3. Fluticasone p.r.n. 4. Lukast 10 mg a day. 5. Sumatriptan for headaches. 6. Zyrtec 10 mg. 7. Vitamin D. 8. Calcium. 9. Aspirin. 10.Eyedrops for glaucoma. 11.Atenolol. 12.Atorvastatin. 13.Tarceva 150 mg once a day. SOCIAL HISTORY: She has never smoked or drank. PHYSICAL EXAMINATION: VITAL SIGNS: Blood pressure 118/76, pulse of 84, respirations of 38, and she is afebrile. GENERAL: She appeared to be slender and slightly pale. She was slightly tachypneic. HEENT: Head, ears, eyes, nose, mouth and throat were normal. CHEST: Demonstrated poor breath sounds on the left. CARDIAC: Demonstrates sinus tachycardia. ABDOMEN: Soft, nontender. EXTREMITIES: Normal. LYMPH NODES: There is no palpable adenopathy in the supraclavicular or axillary areas. IMPRESSION: 1. Left pleural effusion. 2. History of carcinoma of the lung. PLAN: 1. Bed rest. 2. IV fluids. 3. Nasal O2. 4. Consult with interventional Radiology for thoracentesis. 5. Oncology consult. MMODL / IJN: [id number] /
[2022-11-03] MEDS: KETOROLAC 15 MG/ML 1 ML VIAL IVP PRN ×3 (03:53→14:04)
[2022-11-03] MEDS ORDERED: ERLOTINIB HCL 150 MG PO SCH ×2 (06:00→09:00)
[2022-11-03 07:26] LABS: Basophils % (A) 0 %; Eosinophils # (A) 0.4 k/uL (0-0.7); Eosinophils % (A) 5 %; HCT 42.1 % (34.0-46.0); HGB 13.7 gm/dL (11.4-16.0); Lymphocytes % (A) 14 %; MCH 29.3 pg (25.0-35.0); MCHC 32.6 g/dL (31.0-37.0); MCV 89.9 fL (80.0-100.0); Mean Platelet Volume 8.1; Monocytes # (A) 0.7 k/uL (0-1.0); Monocytes % (A) 10 %; Neutrophils # (A) 5.2 k/uL (1.3-7.7); Neutrophils % (A) 70 %; Platelet Count 298 k/uL (150-450); RBC 4.68 m/uL (3.80-5.40); RDW 13.1 % (11.5-15.5); WBC 7.4 k/uL (3.8-10.6)
[2022-11-03 07:40] LABS: African American GFR (CKD) >90 (>60 ml/min/1.73 sqM); Anion Gap 5 mmol/L; Blood Urea Nitrogen 10 mg/dL (7-17); Calcium 8.2 mg/dL (8.4-10.2); Carbon Dioxide 30 mmol/L (22-30); Chloride 98 mmol/L (98-107); Glucose 106 mg/dL (74-99); Non-African American GFR(CKD) >90 (>60 ml/min/1.73 sqM); Potassium 3.8 mmol/L (3.5-5.1); Sodium 133 mmol/L (137-145)
--- NOTE | 2022-11-03 08:01 | US ---
EXAMINATION TYPE: US chest DATE OF EXAM: 11/03/2022 COMPARISON: Radiographs 11/02/2022 CLINICAL INDICATION: Female, 72 years old with history of pleural effusion, right; right pleural effu shyam TECHNIQUE: Targeted ultrasound of the posterior lower right hemithorax EXAM MEASUREMENTS: Right Pleural Effusion pocket size: 14.8 cm - lung noted anteriorly Right skin surface to fluid distance: 3.9 cm Right side marked for possible thoracentesis outside the dept. Left side was not evaluated. Pulmonologists are able to review the images in the patient?s EMR. IMPRESSIONS: Moderate to large right-sided pleural effusion with underlying atelectatic lung. Marking performed.
[2022-11-03] MEDS ORDERED: MONTELUKAST 10 MG TAB PO SCH (09:00)
[2022-11-03] MEDS ORDERED: atenoloL 50 MG TAB PO SCH (09:00)
[2022-11-03] MEDS ORDERED: MULTIVITAMINS, THERA 1 EACH TAB PO SCH (09:00)
[2022-11-03] MEDS ORDERED: CHOLECALCIFEROL 25 MCG (1000 IU) TABLET PO SCH (09:00)
[2022-11-03] MEDS: DOCUSATE 100 MG CAP PO SCH (09:19)
--- NOTE | 2022-11-03 09:23 | P.CRDCN ---
History of Present Illness History of present illness: HISTORY OF PRESENT ILLNESS: This is a 72-year-old female with a past medical history significant for lung cancer diagnosed approximately 6 years ago, hyperlipidemia, and seasonal allergies. Patient does not follow with a hand splitter. We have been asked to see the patient in consultation for elevated troponins. Patient examined at the bedside. Patient reports she has been dealing with SOB for the past several months. She states she had Covid in July and then had a bout of pneumonia. She states since having Covid her shortness of breath has not returned to baseline. She states that she is on a maintenance oral chemotherapy medication. She states that she had radiation initially when she was diagnosed about 6 years ago. The patient states her shortness of breath has gotten progressively worse over the past few days which prompted her to come to the emergency room. She denied having any chest pain or pressure. She denied any dizziness or lightheadedness. Patient was found to have a moderate to large right-sided pleural effusion. Pulmonary has been consulted for evaluation. The patient reports that she had an echocardiogram performed at [facility] this week that was ordered by her oncologist. * EKG reveals sinus mechanism with T-wave inversions in anterior lateral leads. No previous EKG available for comparison. * Chest xray redemonstration of large right pleural effusion with perihilar consolidation corresponding to known lung mass/adenopathy. Patchy right upper lobe airspace opacities may represent pulmonary edema and/or infiltrate. * Laboratory data: W BC 7.4. Hemoglobin 13.7. Platelet count 298. Sodium 133. Potassium 3.8. BUN 10. Creatinine 0.55. Troponin 0.148. 0.135. 0.112. * Current home cardiac medications include atenolol 50 mg daily and Lipitor 20 mg at night REVIEW OF SYSTEMS: At the time of my exam: CONSTITUTIONAL: Denies fever or chills. HEENT: Denies blurred vision, vision changes, or eye pain. Denies hemoptysis CARDIOVASCULAR: Denies chest pain. Denies orthopnea. Denies PND. Denies palpitations RESPIRATORY: Denies shortness of breath. GASTROINTESTINAL: Denies abdominal pain. Denies nausea or vomiting. HEMATOLOGIC: Denies bleeding disorders. GENITOURINARY: Denies any blood in urine. SKIN: Denies pruitis. Denies rash. PHYSICAL EXAM: VITAL SIGNS: Reviewed. GENERAL: Well-developed in no acute distress. HEENT: Head is normocephalic. Pupils are equal, round. Sclerae anicteric. Mucous membranes of the mouth are moist. Neck supple. No JVD or thyromegaly LUNGS: Respirations even and unlabored. Lungs diminished on the left. Breath sounds absent on the right. HEART: Regular rate and rhythm. S1 and S2 heard. ABDOMEN: Soft. Nondistended. Nontender. EXTREMITIES: Normal range of motion. No clubbing or cyanosis. Peripheral pulses intact. No lower extremity edema NEUROLOGIC: Awake and alert. Oriented x 3. ASSESSMENT: Shortness of breath 3 months Large right pleural effusion Acute hypoxic respiratory failure requiring supplemental oxygen Abnormal troponins, flat, likely type II OK secondary to oxygen supply and demand mismatch History of lung CA Hyperlipidemia Seasonal allergies PLAN: Obtain copy of echocardiogram completed this week at [facility] Pulmonary consulted. Anticipate right-sided thoracentesis to be performed Continue home cardiac medications Add aspirin 81mg daily Further recommendations pending patient course Nurse practitioner note has been reviewed by physician. Signing provider agrees with the documented findings, assessment, and plan of care. Past Medical History Past Medical History: Cancer, Hyperlipidemia, Osteoarthritis (OA), Pneumonia, Supraventricular Tachycardia (SVT) Additional Past Medical History / Comment(s): migraines, constipation, hx skin cancer, " a lot of belching", lung cancer History of Any Multi-Drug Resistant Organisms: None Reported Past Surgical History: Breast Surgery, Orthopedic Surgery, Tonsillectomy Additional Past Surgical History / Comment(s): laparoscopy, A&P repair, rt foot martrins neuroma removed, oophorectomy, left breast biopsy, removal of skin cancer from back, Past Anesthesia/Blood Transfusion Reactions: No Reported Reaction Past Psychological History: No Psychological Hx Reported Smoking Status: Never smoker Past Alcohol Use History: Rare Past Drug Use History: None Reported - Past Family History Sister(s) Family Medical History: Cancer Additional Family Medical History / Comment(s): lung cancer Father Family Medical History: Cancer Additional Family Medical History / Comment(s): prostate cancer Medications and Allergies Home Medications Medication Instructions Recorded Confirmed Type Atorvastatin [Lipitor] 20 mg PO HS 07/25/16 11/02/22 History Calcium Carbonate [Calcium] 600 mg PO HS 07/25/16 11/02/22 History Cetirizine HCl [Zyrtec] 10 mg PO HS 07/25/16 11/02/22 History Docusate [Colace] 200 mg PO BID 07/25/16 11/02/22 History Multivitamins, Thera [Multivitamin] 1 tab PO DAILY 07/25/16 11/02/22 History SUMAtriptan succinate [Imitrex] 100 mg PO DAILY PRN 07/25/16 11/02/22 History atenoloL [Tenormin] 50 mg PO DAILY 07/25/16 11/02/22 History Erlotinib HCl [Tarceva] 150 mg PO DAILY 08/30/18 11/02/22 History Cholecalciferol [Vitamin D3 (25 50 mcg PO DAILY 11/02/22 11/02/22 History Mcg = 1000 Iu)] Ciprofloxacin HCl [Cipro] 500 mg PO Q12HR 11/02/22 11/02/22 History Dorzolamide/Timolol/Pf 1 drop LEFT EYE HS 11/02/22 11/02/22 History [Dorzolamide 2%-Timolol 0.5%] Montelukast [Singulair] 10 mg PO DAILY 11/02/22 11/02/22 History Allergies Allergy/AdvReac Type Severity Reaction Status Date / Time Penicillins Allergy Rash/Hives Verified 11/02/22 13:21 Physical Exam Vitals: Vital Signs Temp Pulse Pulse Resp BP BP Pulse Ox 11/03/22 03:57 98 F 98 22 128/73 96 11/03/22 02:00 20 11/03/22 00:00 98.5 F 96 20 118/70 96 11/02/22 19:43 97.9 F 102 H 20 144/79 97 11/02/22 19:24 97.7 F 100 20 128/75 97 11/02/22 18:31 97.8 F 99 18 134/75 97 11/02/22 15:58 99 18 133/79 94 L 11/02/22 14:23 104 H 18 129/84 93 L 11/02/22 12:52 100 20 126/79 92 L 11/02/22 11:47 22 11/02/22 11:43 98.2 F 100 22 137/79 92 L Intake and Output 11/02/22 11/03/22 11/03/22 22:59 06:59 14:59 Other: Voiding Method Toilet Toilet # Voids 1 1 Weight 77.111 kg Results 11/03/22 07:13 11/03/22 07:13 Cardiac Enzymes 11/02/22 11/02/22 11/02/22 Range/Units 12:46 12:46 15:38 AST 38 H (14-36) U/L Troponin I 0.148 H* 0.135 H* (0.000-0.034) ng/mL 11/02/22 Range/Units 18:01 AST (14-36) U/L Troponin I 0.112 H* (0.000-0.034) ng/mL Coagulation 11/02/22 Range/Units 12:46 PT 10.1 (9.0-12.0) sec APTT 25.3 (22.0-30.0) sec CBC 11/02/22 11/03/22 Range/Units 12:46 07:13 WBC 10.7 H 7.4 (3.8-10.6) k/uL RBC 4.83 4.68 (3.80-5.40) m/uL Hgb 13.9 13.7 (11.4-16.0) gm/dL Hct 43.0 42.1 (34.0-46.0) % Plt Count 323 298 (150-450) k/uL Comprehensive Metabolic Panel 11/02/22 11/03/22 Range/Units 12:46 07:13 Sodium 135 L 133 L (137-145) mmol/L Potassium 3.7 3.8 (3.5-5.1) mmol/L Chloride 98 98 (98-107) mmol/L Carbon Dioxide 28 30 (22-30) mmol/L BUN 11 10 (7-17) mg/dL Creatinine 0.51 L 0.55 (0.52-1.04) mg/dL Glucose 115 H 106 H (74-99) mg/dL Calcium 8.2 L 8.2 L (8.4-10.2) mg/dL AST 38 H (14-36) U/L ALT 26 (4-34) U/L Alkaline Phosphatase 130 H (38-126) U/L Total Protein 5.9 L (6.3-8.2) g/dL Albumin 3.1 L (3.5-5.0) g/dL Current Medications Generic Name Dose Route Start Last Admin Trade Name Freq PRN Reason Stop Dose Admin Acetaminophen 650 mg 11/02/22 14:48 Acetaminophen Tab 325 Mg Tab PO Q6HR PRN Mild Pain or Fever > 100.5 Hydrocodone Bitart/Acetaminophen 1 each 11/02/22 20:42 Hydrocodone/Apap 5-325mg 1 Each Tab PO Q6HR PRN Pain Atenolol 50 mg 11/03/22 09:00 Atenolol 50 Mg Tab PO DAILY [facility] Atorvastatin Calcium 20 mg 11/02/22 21:00 11/02/22 20:00 Atorvastatin 20 Mg Tab PO 20 mg HS [facility] Administration Calcium Carbonate/Glycine 500 mg 11/02/22 21:00 11/02/22 20:00 Calcium Carbonate 500 Mg Chewable PO 500 mg HS [facility] Administration Cholecalciferol 50 mcg 11/03/22 09:00 Cholecalciferol 25 Mcg (1000 Iu) Tablet PO DAILY [facility] Docusate Sodium 200 mg 11/02/22 21:00 11/02/22 20:01 Docusate 100 Mg Cap PO Not Given BID [facility] Dorzolamide/Timolol 1 drops 11/02/22 21:00 11/02/22 20:01 Dorzolamide-Timolol 2.23%/0.68 10ml Btl LEFT EYE 1 drops HS [facility] Administration Ketorolac Tromethamine 15 mg 11/02/22 20:41 11/03/22 03:53 Ketorolac 15 Mg/Ml 1 Ml Vial IVP 11/07/22 20:42 15 mg Q4HR PRN Administration pain Loratadine 10 mg 11/02/22 21:00 11/02/22 20:01 Loratadine 10 Mg Tab PO 10 mg HS [facility] Administration Montelukast Sodium 10 mg 11/03/22 09:00 Montelukast 10 Mg Tab PO DAILY [facility] Multivitamins 1 each 11/03/22 09:00 Multivitamins, Thera 1 Each Tab PO DAILY [facility] Naloxone HCl 0.2 mg 11/02/22 14:48 Naloxone 0.4 Mg/Ml 1 Ml Vial IV Q2M PRN Opioid Reversal Erlotinib Hcl [ 150 mg 11/03/22 06:00 11/03/22 06:09 Tarceva] 150 Mg PO 150 mg Tablet DAILY@0600 [facility] Administration Sumatriptan Succinate 100 mg 11/02/22 17:11 Sumatriptan Succinate 50 Mg Tab PO DAILY PRN migraines Intake and Output 11/02/22 11/03/22 11/03/22 22:59 06:59 14:59 Other: Voiding Method Toilet Toilet # Voids 1 1 Weight 77.111 kg 11/03/22 07:13 11/03/22 07:13
--- NOTE | 2022-11-03 09:34 | PCN ---
PROCEDURE NOTE PULMONARY/CRITICAL CARE PROCEDURE NOTE: PROCEDURE PERFORMED: Right-sided thoracentesis. PREOPERATIVE DIAGNOSIS: Right pleural effusion. POSTOPERATIVE DIAGNOSIS: Right pleural effusion. ROOF MECHANIC: Dr. Yuen. DESCRIPTION OF PROCEDURE: There was informed consent and universal timeout. The patient's procedure was done in room 351. Ultrasound guidance was used and appropriate fluid pocket was identified and marked. Patient was positioned, prepped and draped in usual sterile fashion. Lidocaine was used to anesthetize the area. A Thoracentesis catheter was introduced into the pleural space and fluid was removed. Blood loss was none. A chest x-ray was ordered to evaluate for pneumothorax. Total Fluid Removed: 1750 mL. Color of Fluid: Bloody red/brown fluid. Fluid will be sent for analysis including cytology, chemistry, microbiology. The patient tolerated the procedure well. There was no immediate complication. A chest x-ray was ordered. A copy of the results will go to her medical oncologist, Dr. Gonzalez. MMODL / MYNORN: [id number] /
[2022-11-03 10:05] LABS: Total Protein 5.4 g/dL (6.3-8.2)
--- NOTE | 2022-11-03 11:12 | P.EN ---
Patient will require oxygen on discharge via nasal cannula at 4 L to manage hypoxia secondary to lung cancer and large right pleural effusions. Prescription was provided to case management
--- NOTE | 2022-11-03 11:13 | P.CNPUL ---
History of Present Illness Consult date: 11/03/22 Requesting physician: Martin Woody Reason for consult: hypoxemia, pleural effusion, lung mass, abnormal CXR/CT Chief complaint: Difficulty breathing. History of present illness: Pulmonary consult dated 11/03/2022. 72-year-old female seen in consultation for shortness of breath. The patient has a history of lung cancer, adenocarcinoma, diagnosed back in 2017. I believe the bronchoscopy was performed by one or both of my partners. The patient apparently has undergone treatment, with one of the medical oncologists, including radiation therapy, I believe to be stereotactic body radiotherapy, and she remains on Tarceva. The patient was admitted through the emergency department with shortness of breath, which is been present for a number of weeks. His been getting progressively worse and she was found to have a large right-sided pleural effusion. Today we did a right-sided thoracentesis, and remove the bloody fluid from the right pleural space, 1.75 L. We saw the patient, she was on oxygen at 4 L, with saturations of 96-97%. She was not receiving any IV fluids. She did feel a bit better after the procedure. I made sure to send copies of the results to the medical oncologist. White count 7.4, hemoglobin hematocrit and platelet count all normal. Sodium 133, potassium 3.8, chlorides 98, CO2 30, BUN 10, creatinine 0.55. Troponins were 0.148, 0.135, and 0.112. Albumin was 3.1. Testing for influenza A, and influenza B, RSV, and coronavirus, were all negative. Chest x-ray showed a large right-sided pleural effusion. Ultrasound revealed a large pocket. Postoperative chest x-ray revealed less fluid in the right chest, without obvious pneumothorax. Review of Systems REVIEW OF SYSTEMS: CONSTITUTIONAL: [Negative.] NEUROLOGIC: [ Negative.] HEENT: [ Negative.] CARDIAC: [Negative.] PULMONARY: Progressive shortness of breath. GI: [Negative.] : [Negative.] RHEUMATOLOGIC: [ Negative.] IMMUNOLOGIC: [ Negative.] ENDOCRINE: [Negative. ] DERMATOLOGIC: [Negative.] Past Medical History Past Medical History: Cancer, Hyperlipidemia, Osteoarthritis (OA), Pneumonia, Supraventricular Tachycardia (SVT) Additional Past Medical History / Comment(s): migraines, constipation, hx skin cancer, " a lot of belching", lung cancer History of Any Multi-Drug Resistant Organisms: None Reported Past Surgical History: Breast Surgery, Orthopedic Surgery, Tonsillectomy Additional Past Surgical History / Comment(s): laparoscopy, A&P repair, rt foot martrins neuroma removed, oophorectomy, left breast biopsy, removal of skin cancer from back, Past Anesthesia/Blood Transfusion Reactions: No Reported Reaction Past Psychological History: No Psychological Hx Reported Smoking Status: Never smoker Past Alcohol Use History: Rare Past Drug Use History: None Reported - Past Family History Sister(s) Family Medical History: Cancer Additional Family Medical History / Comment(s): lung cancer Father Family Medical History: Cancer Additional Family Medical History / Comment(s): prostate cancer Medications and Allergies Home Medications Medication Instructions Recorded Confirmed Type Atorvastatin [Lipitor] 20 mg PO HS 07/25/16 11/02/22 History Calcium Carbonate [Calcium] 600 mg PO HS 07/25/16 11/02/22 History Cetirizine HCl [Zyrtec] 10 mg PO HS 07/25/16 11/02/22 History Docusate [Colace] 200 mg PO BID 07/25/16 11/02/22 History Multivitamins, Thera [Multivitamin] 1 tab PO DAILY 07/25/16 11/02/22 History SUMAtriptan succinate [Imitrex] 100 mg PO DAILY PRN 07/25/16 11/02/22 History atenoloL [Tenormin] 50 mg PO DAILY 07/25/16 11/02/22 History Erlotinib HCl [Tarceva] 150 mg PO DAILY 08/30/18 11/02/22 History Cholecalciferol [Vitamin D3 (25 50 mcg PO DAILY 11/02/22 11/02/22 History Mcg = 1000 Iu)] Ciprofloxacin HCl [Cipro] 500 mg PO Q12HR 11/02/22 11/02/22 History Dorzolamide/Timolol/Pf 1 drop LEFT EYE HS 11/02/22 11/02/22 History [Dorzolamide 2%-Timolol 0.5%] Montelukast [Singulair] 10 mg PO DAILY 11/02/22 11/02/22 History Allergies Allergy/AdvReac Type Severity Reaction Status Date / Time Penicillins Allergy Rash/Hives Verified 06/15/23 13:21 Physical Exam Osteopathic Statement: *. No significant issues noted on an osteopathic structural exam other than those noted in the History and Physical/Consult. Vitals: Vital Signs Temp Pulse Pulse Resp BP BP Pulse Ox 11/03/22 09:21 96 11/03/22 08:00 110 H 20 128/70 95 11/03/22 03:57 98 F 98 22 128/73 96 11/03/22 02:00 20 11/03/22 00:00 98.5 F 96 20 118/70 96 11/02/22 19:43 97.9 F 102 H 20 144/79 97 11/02/22 19:24 97.7 F 100 20 128/75 97 11/02/22 18:31 97.8 F 99 18 134/75 97 11/02/22 15:58 99 18 133/79 94 L 11/02/22 14:23 104 H 18 129/84 93 L 11/02/22 12:52 100 20 126/79 92 L 11/02/22 11:47 22 11/02/22 11:43 98.2 F 100 22 137/79 92 L Intake and Output 11/02/22 11/03/22 11/03/22 22:59 06:59 14:59 Intake Total 358 Balance 358 Intake: Oral 358 Other: Voiding Method Toilet Toilet # Voids 1 1 Weight 77.111 kg Mild respiratory distress, oriented 3. 4 L saturation is 96%. HEENT examination is grossly unremarkable. Neck supple. Full range of motion. No adenopathy thyromegaly or neck vein distention. Cardiovascular examination reveals regular rhythm rate. S1-S2 normal. No S3 or S4. No discernible murmur noted. Heart rate 100 bpm. Lungs reveal severely diminished breath sounds in the right chest. Dullness on percussion. The left lung is relatively clear. Saturations are 96% on 4 L. Abdomen soft bowel sounds are heard. No masses or tenderness. Extremities are intact. No cyanosis clubbing or edema. Skin is without rash or lesion. Neurologic examination is brief but nonfocal. Results - Laboratory Findings CBC and BMP: 11/03/22 07:13 11/03/22 07:13 PT/INR, D-dimer PT 10.1 sec (9.0-12.0) 11/02/22 12:46 INR 0.9 (<1.2) 11/02/22 12:46 Abnormal lab findings: Abnormal Labs 11/02/22 11/02/22 11/02/22 12:46 12:46 12:46 WBC 10.7 H Neutrophils # 8.3 H Sodium 135 L Creatinine 0.51 L Glucose 115 H Calcium 8.2 L AST 38 H Alkaline Phosphatase 130 H Troponin I 0.148 H* Total Protein 5.9 L Albumin 3.1 L 11/02/22 11/02/22 11/03/22 15:38 18:01 07:13 WBC Neutrophils # Sodium 133 L Creatinine Glucose 106 H Calcium 8.2 L AST Alkaline Phosphatase Troponin I 0.135 H* 0.112 H* Total Protein Albumin 11/03/22 07:13 WBC Neutrophils # Sodium Creatinine Glucose Calcium AST Alkaline Phosphatase Troponin I Total Protein 5.4 L Albumin - Diagnostic Findings Chest x-ray: image reviewed Assessment and Plan Assessment: Progressive shortness of breath, secondary to a large right-sided pleural effusion, likely malignant. Thoracentesis performed today, November 03, with 1.75 L of bloody fluid removed. History of non-small cell lung cancer, status post radiation, and treatment with Tarceva, diagnosed in 2017. History of hyperlipidemia. History of osteoarthritis. History of pneumonia. History of SVT. History of skin cancer. Migraine cephalgia. Plan: Plan dated 11/03/2022. The patient had a thoracentesis performed today. It was done at the bedside. Was informed consent and universal timeout. 1.75 L of bloody fluid was removed. The post-thoracentesis chest x-ray did not reveal a pneumothorax. The patient could be considered for possible discharge later today. A copy of the results will go to Dr. Zaldivar, her medical oncologist. The patient will follow with me in the office. I did tell him that she may need a thoracentesis in the future. Also, I mentioned to her, about the Pleurx catheter, as an option, should she reaccumulate significantly. Time with Patient: Greater than 30
[2022-11-03 11:20] VITALS: BMI 26.6
--- NOTE | 2022-11-03 11:47 | XR ---
EXAMINATION TYPE: XR chest 1V portable DATE OF EXAM: 11/03/2022 Comparison: 11/02/2022 Clinical History: 72-year-old female Post right thoracentesis Findings: Heart mildly enlarged. Patient rotated towards the right. Trace left effusion noted. There is a resid ual small right pleural effusion along with prominent patchy right mid and lower lung opacities. Poss ible air locule at the site of evacuated pleural fluid. No pneumothorax seen in the nondependent righ t upper lung. Impression: 1. Residual small right pleural effusion but with prominent patchy opacity remaining throughout the r ight mid and lower lung. 2. Possible small air locule/localized pneumothorax at the site of evacuated pleural fluid. Close fol low-up recommended. 3. Trace left effusion.
[2022-11-03 13:23] VITALS: BP 106/72; PULSE 97; RESP 19; TEMP 97.6
--- NOTE | 2022-11-03 16:11 | P.CONS ---
History of Present Illness - Reason for Consult Consult date: 11/03/22 EGFR exon19 del NSCLC Requesting physician: Martin Woody - Chief Complaint SOB - History of Present Illness Ms. Chritsie is a very pleasant patient of Dr. 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 Patient presented with a persistent cough starting in March 2016. Chest x-ray suspicious for pneumonia, treated for the same without improvements. CT chest 07/18/16 revealed 3.3 cm right upper lobe mass, right hilar and mediastinal lymph nodes up to 1.4 cm, numerous bilateral lung nodules and a fractured left rib. Staging PET 07/22/16 showed uptake in the mass, pretracheal lymph nodes, subcarinal lymph nodes right and left infrahilar nodes and the left sixth rib. 07/27/16 bronchoscopy with transbronchial FNA of paratracheal lymph nodes positive for adenocarcinoma, IHC consistent with a lung primary, NGS positive for an EGFR exon 19 deletion. MRI of the brain 08/25/16 was negative for metastatic disease. She was started on targeted agent erlotinib. Follow-up imaging since that time showed improvement in disease/stable disease. It was noted some slight progression in the right suprahilar region though she had S/P RT 09/02/21. Follow-up imaging showed a response. Then another lymph node started to show some increased uptake but, this remains stable.08/11/22 scan was stable. Over the last 3 weeks patient has been following closely with PCP [facility] and being treated for what was suspected an upper respiratory infection/pneumonia. Unfortunately, patient did not improve after antibiotics. She was becoming more hypoxic so, she came to the emergency department, was placed on 4 L nasal cannula, chest x-ray showed a right pleural effusion, small pericardial effusion, troponins were elevated, CBC within normal limits. She had a 1750 cc thoracentesis. Today she is on oxygen, feeling much better, she is able to ambulate. Denies fevers, nausea or vomiting. She is tolerating oral intake. Review of Systems 10 point review of systems is negative except as stated in HPI Past Medical History Past Medical History: Cancer, Hyperlipidemia, Osteoarthritis (OA), Pneumonia, Supraventricular Tachycardia (SVT) Additional Past Medical History / Comment(s): migraines, constipation, hx skin cancer, " a lot of belching", lung cancer History of Any Multi-Drug Resistant Organisms: None Reported Past Surgical History: Breast Surgery, Orthopedic Surgery, Tonsillectomy Additional Past Surgical History / Comment(s): laparoscopy, A&P repair, rt foot martrins neuroma removed, oophorectomy, left breast biopsy, removal of skin cancer from back, Past Anesthesia/Blood Transfusion Reactions: No Reported Reaction Past Psychological History: No Psychological Hx Reported Smoking Status: Never smoker Past Alcohol Use History: Rare Past Drug Use History: None Reported - Past Family History Sister(s) Family Medical History: Cancer Additional Family Medical History / Comment(s): lung cancer Father Family Medical History: Cancer Additional Family Medical History / Comment(s): prostate cancer Medications and Allergies Home Medications Medication Instructions Recorded Confirmed Type Atorvastatin [Lipitor] 20 mg PO HS 07/25/16 11/02/22 History Calcium Carbonate [Calcium] 600 mg PO HS 07/25/16 11/02/22 History Cetirizine HCl [Zyrtec] 10 mg PO HS 07/25/16 11/02/22 History Docusate [Colace] 200 mg PO BID 07/25/16 11/02/22 History Multivitamins, Thera [Multivitamin 1 tab PO DAILY 07/25/16 11/02/22 History (formulary)] SUMAtriptan succinate [Imitrex] 100 mg PO DAILY PRN 07/25/16 11/02/22 History atenoloL [Tenormin] 50 mg PO DAILY 07/25/16 11/02/22 History Erlotinib HCl [Tarceva] 150 mg PO DAILY 08/30/18 11/02/22 History Cholecalciferol [Vitamin D3 (25 50 mcg PO DAILY 11/02/22 11/02/22 History Mcg = 1000 Iu)] Dorzolamide/Timolol/Pf 1 drop LEFT EYE HS 11/02/22 11/02/22 History [Dorzolamide 2%-Timolol 0.5%] Montelukast [Singulair] 10 mg PO DAILY 11/02/22 11/02/22 History Acetaminophen Tab [Tylenol] 650 mg PO Q6HR PRN tab 11/03/22 Rx Aspirin 81 mg PO DAILY #30 tab 11/03/22 Rx HYDROcodone/APAP 5-325MG [[place] 1 each PO Q6HR PRN #9 tab 11/03/22 Rx 5-325] Ketorolac [Toradol] 10 mg PO Q6HR #20 tab 11/03/22 Rx Allergies Allergy/AdvReac Type Severity Reaction Status Date / Time Penicillins Allergy Rash/Hives Verified 11/02/22 13:21 Physical Exam Vitals: Vital Signs Temp Pulse Pulse Resp BP BP Pulse Ox 11/03/22 03:57 98 F 98 22 128/73 96 11/03/22 02:00 20 11/03/22 00:00 98.5 F 96 20 118/70 96 11/02/22 19:43 97.9 F 102 H 20 144/79 97 11/02/22 19:24 97.7 F 100 20 128/75 97 11/02/22 18:31 97.8 F 99 18 134/75 97 11/02/22 15:58 99 18 133/79 94 L 11/02/22 14:23 104 H 18 129/84 93 L 11/02/22 12:52 100 20 126/79 92 L 11/02/22 11:47 22 11/02/22 11:43 98.2 F 100 22 137/79 92 L Intake and Output 11/02/22 11/03/22 11/03/22 22:59 06:59 14:59 Intake Total 358 Balance 358 Intake: Oral 358 Other: Voiding Method Toilet Toilet # Voids 1 1 Weight 77.111 kg - Constitutional General appearance: average body habitus, cooperative, no acute distress - EENT Eyes: anicteric sclerae, edentulous ENT: hearing grossly normal, normal oropharynx - Neck Neck: no lymphadenopathy - Respiratory Respiratory: bilateral: diminished - Cardiovascular Rhythm: regular Heart sounds: normal: S1, S2 Abnormal Heart Sounds: no systolic murmur, no diastolic murmur, no rub, no S3 Gallop, no S4 Gallop, no click, no other leg Peripheral Edema: bilateral: None - Gastrointestinal General gastrointestinal: no absent bowel sounds, no decreased bowel sounds, no distended, no hepatomegaly, no hyperactive bowel sounds, normal bowel sounds, no organomegaly, no rigid, no scaphoid, soft, no splenomegaly, no tenderness, no umbilical hernia, no ventral hernia - Integumentary Integumentary: normal - Neurologic Neurologic: CNII-XII intact - Musculoskeletal Musculoskeletal: strength equal bilaterally - Psychiatric Psychiatric: A&O x's 3, appropriate affect, intact judgment & insight Results CBC & Chem 7: 11/03/22 07:13 11/03/22 07:13 Labs: Abnormal Lab Results - Last 24 Hours (Table) 11/02/22 11/02/22 11/02/22 Range/Units 12:46 12:46 12:46 WBC 10.7 H (3.8-10.6) k/uL Neutrophils # 8.3 H (1.3-7.7) k/uL Sodium 135 L (137-145) mmol/L Creatinine 0.51 L (0.52-1.04) mg/dL Glucose 115 H (74-99) mg/dL Calcium 8.2 L (8.4-10.2) mg/dL AST 38 H (14-36) U/L Alkaline Phosphatase 130 H (38-126) U/L Troponin I 0.148 H* (0.000-0.034) ng/mL Total Protein 5.9 L (6.3-8.2) g/dL Albumin 3.1 L (3.5-5.0) g/dL 11/02/22 11/02/22 11/03/22 Range/Units 15:38 18:01 07:13 WBC (3.8-10.6) k/uL Neutrophils # (1.3-7.7) k/uL Sodium 133 L (137-145) mmol/L Creatinine (0.52-1.04) mg/dL Glucose 106 H (74-99) mg/dL Calcium 8.2 L (8.4-10.2) mg/dL AST (14-36) U/L Alkaline Phosphatase (38-126) U/L Troponin I 0.135 H* 0.112 H* (0.000-0.034) ng/mL Total Protein (6.3-8.2) g/dL Albumin (3.5-5.0) g/dL Comments: Ultrasound of the chest report reviewed Chest x-ray: report reviewed Assessment and Plan (1) Dyspnea Status: Acute Priority: High Code(s): R06.00 - DYSPNEA, UNSPECIFIED SNOMED Code(s): 924937155 (2) NSCLC with EGFR mutation Status: Chronic Priority: Medium Code(s): C34.90 - MALIGNANT NEOPLASM OF UNSP PART OF UNSP BRONCHUS OR LUNG SNOMED Code(s): 462060103 Plan: Dyspnea -Patient doing much better status post 1750 cc thoracentesis. Cytology pending -Patient is being tested to see if she needs oxygen for home. EGFR exon 19 deletion metastatic non-small cell lung cancer -Patient has been on Tarceva for 6 years and done very well. -Over the last year patient has had notable PET scan uptake increases in a couple of lymph nodes. -She was just in the office 3 days ago for [facility] liquid biopsy, Pending results -Pending cytology from thoracentesis-therapy may have to be changed -Continue Tarceva for now. -Scan already scheduled for 11/17. Patient will keep this appointment -Patient has follow-up with Dr. Zaldivar already scheduled
[2022-11-03 17:57] LABS: Glucose, BF Source Pleural Fluid; Glucose, Body Fluid 115 mg/dL; LDH, Body Fluid Source Pleural Fluid; T. Protein, Body Fluid Source Pleural Fluid; Total Protein, Body Fluid >3600 mg/dL
[2022-11-03 18:25] LABS: Appearance,BF #TB
--- NOTE | 2022-11-04 08:50 | P.DS ---
Providers Date of admission: 11/02/22 14:53 Expected date of discharge: 11/03/22 Attending physician: Martin Woody Consults: 11/02/22 14:48 Consult Physician Routine Consulting Provider: Cale Prakash Consult Reason/Comments: hypoxia, large right pleural effusion, lung cancer Do you want consulting provider notified?: Yes Consult Physician Routine Consulting Provider: [facility] Consult Reason/Comments: elevated troponin, likely from pleural effusion Do you want consulting provider notified?: Yes Consult Physician Routine Consulting Provider: Rachel Zaldivar Consult Reason/Comments: lung cancer Do you want consulting provider notified?: Yes Primary care physician: Martin Woody Hospital Course: Final diagnosis Shortness of breath, secondary to large right pleural effusion, status post right-sided thoracentesis with approximately 1.7 L removed History of non-small cell lung carcinoma with radiation in 2017, maintained on oral chemotherapy History of hyperlipidemia Osteoarthritis history Never smoker GI prophylaxis DVT prophylaxis Full code Discharge disposition Patient is being discharged in a stable condition with guarded prognosis to home . Patient will follow-up with Dr. Woody in the outpatient setting upon discharge. Patient is to follow-up with pulmonary along with oncology outpatient as scheduled. Total time taken is greater than 35 minutes. Hospital course This is a 72-year-old female who was recently admitted with increasing shortness of breath found to have a large right pleural effusion. Patient was evaluated by cardiology as well as pulmonary underwent thoracentesis with approximately 1700 mL removed. Specimen was sent to the lab and patient to follow-up with pulmonary outpatient in 1-2 weeks. Patient requiring oxygen via nasal cannula at 4 L on discharge. Refer to pulmonaryfor further HPI. Patient was also briefly evaluated by oncology as she takes daily chemotherapy and follows with Dr. Gonzalez outpatient. Currently no reports of chest pain, worsening shortness of breath, or palpitations. Patient is afebrile. No reports of nausea or vomiting and patient is tolerating diet. Patient will be disharged home today. Physical exam: Gen: This is [id number] female who is awake, alert and oriented 3, well- developed, well-nourished HEENT: Head is atraumatic, normocephalic. Pupils equal, round. Sclerae is anicteric. NECK: Supple. No JVD. No lymphadenopathy. No thyromegaly. LUNGS: Diminished breath sounds bilaterally with no wheezes or rhonchi. No intercostal retractions. HEART: Regular rate and rhythm. No murmur. ABDOMEN: Soft. Bowel sounds are present. No masses. No tenderness. EXTREMITIES: No pedal edema. No calf tenderness. NEUROLOGICAL: Patient is awake, alert and oriented x3. Cranial nerves 2 through 12 are grossly intact. Please refer to medication reconciliation sheet for a list of medications. The impression and plan of care has been dictated by Jolanta Garcia, Nurse Practitioner as directed. Dr. Oksana MD I have performed a history and examination and MDM of this patient, discussed the same with the dictator, and agree with the dictator's assessment and plan as written ,documented as a scribe. Based on total visit time, I have performed more than 50% of the visit. Patient Condition at Discharge: Fair Plan - Discharge Summary Discharge Rx Participant: No New Discharge Prescriptions: New HYDROcodone/APAP 5-325MG [[place] 5-325] 1 each PO Q6HR PRN #9 tab PRN Reason: Pain Ketorolac [Toradol] 10 mg PO Q6HR #20 tab Acetaminophen Tab [Tylenol] 650 mg PO Q6HR PRN tab PRN Reason: Mild Pain Or Fever > 100.5 Aspirin 81 mg PO DAILY #30 tab Continue Docusate [Colace] 200 mg PO BID Calcium Carbonate [Calcium] 600 mg PO HS Multivitamins, Thera [Multivitamin (formulary)] 1 tab PO DAILY Cetirizine HCl [Zyrtec] 10 mg PO HS Atorvastatin [Lipitor] 20 mg PO HS atenoloL [Tenormin] 50 mg PO DAILY SUMAtriptan succinate [Imitrex] 100 mg PO DAILY PRN PRN Reason: migraines Erlotinib HCl [Tarceva] 150 mg PO DAILY Dorzolamide/Timolol/Pf [Dorzolamide 2%-Timolol 0.5%] 1 drop LEFT EYE HS Cholecalciferol [Vitamin D3 (25 Mcg = 1000 Iu)] 50 mcg PO DAILY Montelukast [Singulair] 10 mg PO DAILY Discontinued Ciprofloxacin HCl [Cipro] 500 mg PO Q12HR Discharge Medication List Atorvastatin [Lipitor] 20 mg PO HS 07/25/16 [History] Calcium Carbonate [Calcium] 600 mg PO HS 07/25/16 [History] Cetirizine HCl [Zyrtec] 10 mg PO HS 07/25/16 [History] Docusate [Colace] 200 mg PO BID 07/25/16 [History] Multivitamins, Thera [Multivitamin (formulary)] 1 tab PO DAILY 07/25/16 [History] SUMAtriptan succinate [Imitrex] 100 mg PO DAILY PRN 07/25/16 [History] atenoloL [Tenormin] 50 mg PO DAILY 07/25/16 [History] Erlotinib HCl [Tarceva] 150 mg PO DAILY 08/30/18 [History] Cholecalciferol [Vitamin D3 (25 Mcg = 1000 Iu)] 50 mcg PO DAILY 11/02/22 [History] Dorzolamide/Timolol/Pf [Dorzolamide 2%-Timolol 0.5%] 1 drop LEFT EYE HS 11/02/22 [History] Montelukast [Singulair] 10 mg PO DAILY 11/02/22 [History] Acetaminophen Tab [Tylenol] 650 mg PO Q6HR PRN tab 11/03/22 [Rx] Aspirin 81 mg PO DAILY #30 tab 11/03/22 [Rx] HYDROcodone/APAP 5-325MG [[place] 5-325] 1 each PO Q6HR PRN #9 tab 11/03/22 [Rx] Ketorolac [Toradol] 10 mg PO Q6HR #20 tab 11/03/22 [Rx] Follow up Appointment(s)/Referral(s): Martin Woody MD [Primary Care Provider] - 11/06/22 4:00 pm Cale Prakash DO [Doctor of Osteopathic Medicine] - 11/13/22 9:30 am Rachel Zaldivar MD [STAFF PHYSICIAN] - 11/28/22 1:15 am (keep current a ppointment) Patient Instructions/Handouts: Pleural Effusion (DC), Thoracentesis (DC) Activity/Diet/Wound Care/Special Instructions: Activity Limited until follow-up Follow-up with primary care provider on discharge Follow-up with oncology outpatient at your scheduled appointment Discharge Disposition: HOME SELF-CARE
[2022-11-04] MEDS ORDERED: ASPIRIN 81 MG PO SCH (09:00)
== END 2022-11-03 15:26 | disposition home or self-care (01) | DRG 180 ==
LOC: EC 11:31 → 3SCARD 14:53
PROVIDERS: ADMIT Family Medicine; ATTEND Family Medicine
PROC: 0W993ZZ Drainage of Right Pleural Cavity, Percutaneous Approach (ICD-10-PCS; principal; 2022-11-03)
DX: C34.91 Malignant neoplasm of unspecified part of right bronchus or lung (principal); I21.A1 Myocardial infarction type 2; J96.01 Acute respiratory failure with hypoxia; I31.39 Other pericardial effusion (noninflammatory); I47.1 Supraventricular tachycardia; J91.0 Malignant pleural effusion; J98.11 Atelectasis; E78.5 Hyperlipidemia, unspecified; M19.90 Unspecified osteoarthritis, unspecified site; J30.2 Other seasonal allergic rhinitis; G43.909 Migraine, unspecified, not intractable, without status migrainosus; R59.9 Enlarged lymph nodes, unspecified; Z79.82 Long term (current) use of aspirin; Z79.899 Other long term (current) drug therapy; Z88.0 Allergy status to penicillin; Z85.828 Personal history of other malignant neoplasm of skin; Z87.01 Personal history of pneumonia (recurrent); Z80.1 Family history of malignant neoplasm of trachea, bronchus and lung; Z86.16 Personal history of COVID-19; Z92.3 Personal history of irradiation; Z85.118 Personal history of other malignant neoplasm of bronchus and lung
CPT/HCPCS: 36415; 71045; 71046; 76604; 80048; 80053; 82945; 83615; 83735; 84155; 84157; 84484; 85025; 85610; 85730; 87070; 87102; 87116; 87205; 87206; 87252; 87636; 88108; 88305; 89050; 93005; 94760; 96374; 99285

== ENCOUNTER → 2022-11-17 | Outpatient (CLI) | payer MEDICARE, BC ==
--- NOTE | 2022-11-18 13:58 | PE ---
EXAMINATION TYPE: PET CT fusion skull to thigh DATE OF EXAM: 11/17/2022 CLINICAL INDICATION:Female, 72 years old with history of Lung Ca C34.11; TECHNIQUE: Following the intravenous administration of 13.0 mCi of F-18 FDG, whole body images are performed from the skull base to the midthigh. Images are reviewed on the computer in the coronal, a xial, and sagittal planes. Reconstructed rotating images are created on independent workstation and reviewed on the computer. A non-contrast CT is performed in conjunction with the PET scan. Glucose level 103 mg/dL COMPARISON: CT None, PET/CT 08/11/2022, FINDINGS: Mediastinal SUV mean is 1.9. Hepatic parenchyma SUV mean is 2.3. SKULL BASE AND NECK: * Left supraclavicular lymph node measuring 6 mm in short axis max SUV 1.9 previously 2.0, 2.3, 2.0, 1.3. CHEST, MEDIASTINUM, AND HILAR REGION: * Right upper lung consolidation which is increase in size extending from the pulmonary hilum with p ostobstructive atelectasis max SUV 7.2, previously 4.9, 4.8, 4.4 , and 7.1. Area measures roughly 4.6 x 4.0 of FDG activity which is increased from prior where measured roughly 3.2 x 1.4 centimeters of FDG activity on 08/11/2022 * Subcarinal lymph node axis SUV 3.9 previously 4.3 , 4.3, 2.4 and 2.0. * Scattered airspace opacities throughout the right lower lung have increased in size now with an ar ea along the periphery of consolidation max SUV 5.5, previously 2.9. * Right low paratracheal lymph node max SUV 3.3, previously 2.9, 3.2, 3.1 and 3.0. * Right high paratracheal lymph node max SUV 2.8, previously 2.5. This is just below the right thyro id gland and/or in the most inferior aspect of the thyroid gland. ABDOMEN AND PELVIS: No suspicious radiotracer activity. OSSEOUS STRUCTURES: No suspicious radiotracer activity. * Left transverse process of T1 max SUV 1.6, previously 1.7, 2.7, 2.[address]: Small right pleural effusion is noted. Atherosclerosis of the arterial vasculature. The heart is mild ly enlarged for size. Right hepatic lobe cyst. Scoliosis changes of the spine. Multilevel disc degene ration changes of the spine. A suspensory ring within the vagina. Small pericardial effusion. IMPRESSION: Worsening disease within the lungs with increasing right upper lobe consolidation and FDG activity as well as new consolidation changes along the lateral aspect of the right lower lobe concerning for in fection versus metastatic focus. There is new small right pleural effusion. The FDG activity within t he mediastinal lymph nodes are stable or decreased on today's exam.
== END | disposition home or self-care (01) ==
LOC: RADPETMAIN 11:21
PROVIDERS: ATTEND Internal Medicine Hematology & Oncology
DX: C34.11 Malignant neoplasm of upper lobe, right bronchus or lung (principal); J90 Pleural effusion, not elsewhere classified
CPT/HCPCS: 78815; A9552

== ENCOUNTER 2023-01-02 08:15 | Observation (INO) | payer MEDICARE, BC ==
--- NOTE | 2023-01-02 08:45 | ED ---
General Adult HPI - General Chief complaint: Shortness of Breath Stated complaint: ESTELLE Time Seen by Provider: 01/02/23 08:33 Source: patient, RN notes reviewed, old records reviewed Mode of arrival: ambulatory Limitations: no limitations - History of Present Illness Initial comments: 72-year-old female with history of lung CVA presents for increasing dyspnea and chest pain. Pain is been present for the past 3 days, she describes it as across her entire chest. She denies fever or cough. She states she has had previous pleural effusion requiring thoracentesis. No history of coronary artery disease. - Related Data Home Medications Medication Instructions Recorded Confirmed Atorvastatin [Lipitor] 20 mg PO HS 07/25/16 11/02/22 Calcium Carbonate [Calcium] 600 mg PO HS 07/25/16 11/02/22 Cetirizine HCl [Zyrtec] 10 mg PO HS 07/25/16 11/02/22 Docusate [Colace] 200 mg PO BID 07/25/16 11/02/22 Multivitamins, Thera [Multivitamin 1 tab PO DAILY 07/25/16 11/02/22 (formulary)] SUMAtriptan succinate [Imitrex] 100 mg PO DAILY PRN 07/25/16 11/02/22 atenoloL [Tenormin] 50 mg PO DAILY 07/25/16 11/02/22 Erlotinib HCl [Tarceva] 150 mg PO DAILY 08/30/18 11/02/22 Cholecalciferol [Vitamin D3 (25 50 mcg PO DAILY 11/02/22 11/02/22 Mcg = 1000 Iu)] Dorzolamide/Timolol/Pf 1 drop LEFT EYE HS 11/02/22 11/02/22 [Dorzolamide 2%-Timolol 0.5%] Montelukast [Singulair] 10 mg PO DAILY 11/02/22 11/02/22 Previous Rx's Medication Instructions Recorded Acetaminophen Tab [Tylenol] 650 mg PO Q6HR PRN tab 11/03/22 Aspirin 81 mg PO DAILY #30 tab 11/03/22 HYDROcodone/APAP 5-325MG [[place] 1 each PO Q6HR PRN #9 tab 11/03/22 5-325] Ketorolac [Toradol] 10 mg PO Q6HR #20 tab 11/03/22 Allergies Allergy/AdvReac Type Severity Reaction Status Date / Time Penicillins Allergy Rash/Hives Verified 01/02/23 08:22 Review of Systems ROS Statement: Those systems with pertinent positive or pertinent negative responses have been documented in the HPI. ROS Other: All systems not noted in ROS Statement are negative. Past Medical History Past Medical History: Cancer, Hyperlipidemia, Osteoarthritis (OA), Pneumonia, Supraventricular Tachycardia (SVT) Additional Past Medical History / Comment(s): migraines, constipation, hx skin cancer, " a lot of belching", lung cancer History of Any Multi-Drug Resistant Organisms: None Reported Past Surgical History: Breast Surgery, Orthopedic Surgery, Tonsillectomy Additional Past Surgical History / Comment(s): laparoscopy, A&P repair, rt foot martrins neuroma removed, oophorectomy, left breast biopsy, removal of skin cancer from back, Past Anesthesia/Blood Transfusion Reactions: No Reported Reaction Past Psychological History: No Psychological Hx Reported Smoking Status: Never smoker Past Alcohol Use History: Rare Past Drug Use History: None Reported - Past Family History Sister(s) Family Medical History: Cancer Additional Family Medical History / Comment(s): lung cancer Father Family Medical History: Cancer Additional Family Medical History / Comment(s): prostate cancer General Exam Limitations: no limitations General appearance: alert, in no apparent distress Head exam: Present: atraumatic, normocephalic Eye exam: Present: normal appearance, PERRL ENT exam: Present: normal exam Neck exam: Present: normal inspection. Absent: tenderness, meningismus Respiratory exam: Present: decreased breath sounds (Decreased breath sounds right lung base). Absent: respiratory distress, wheezes, rales Cardiovascular Exam: Present: regular rate, normal rhythm GI/Abdominal exam: Present: soft. Absent: distended, tenderness Extremities exam: Absent: calf tenderness Neurological exam: Present: alert, oriented X3 Psychiatric exam: Present: normal affect, normal mood Skin exam: Present: warm, dry, intact. Absent: cyanosis, diaphoretic Course Vital Signs 01/02/23 08:19 Temperature 98.1 F Pulse Rate 87 Respiratory 18 Rate Blood Pressure 126/77 O2 Sat by Pulse 98 Oximetry Medical Decision Making - Medical Decision Making Was pt. sent in by a medical professional or institution (, PA, SECURITY OFFICER SUPERVISOR, urgent care, hospital, or prison...) When possible be specific @ -No Did you speak to anyone other than the patient for history (EMS, parent, family, police, friend...)? What history was obtained from this source @ -No Did you review nursing and triage notes (agree or disagree)? Why? @ -I reviewed and agree with nursing and triage notes Were old charts reviewed (outside hosp., previous admission, EMS record, old EKG, old radiological studies, urgent care reports/EKG's, prison records)? Report findings @ -No old charts were reviewed Differential Diagnosis (chest pain, altered mental status, abdominal pain women, abdominal pain men, vaginal bleeding, weakness, fever, dyspnea, syncope, headache, dizziness, GI bleed, back pain, seizure, CVA, palpatations, mental health, musculoskeletal)? @Differential Dyspnea: Coronary syndrome, arrhythmia, tamponade, asthma, COPD, pulmonary embolism, pneumonia, pneumothorax, pulmonary effusion, anaphylaxis, diabetic ketoacidosis, flailed chest, pulmonary contusion, diaphragmatic rupture, anemia, neuromuscular, this is not meant to be an all-inclusive list. EKG interpreted by me (3pts min.). @Sinus rhythm rate of 84, ND interval 160, QRS duration 94, QTC 407 T-wave inv ersion in V3, no ST segment elevation. Low voltage. X-rays interpreted by me (1pt min.). @ Chest x-ray showing bilateral pleural effusion significantly worse on the right CT interpreted by me (1pt min.). @ -None done U/S interpreted by me (1pt. min.). @ -None done What testing was considered but not performed or refused? (CT, X-rays, U/S, labs)? Why? @ -None What meds were considered but not given or refused? Why? @ -None Did you discuss the management of the patient with other professionals (professionals i.e. , PA, SECURITY OFFICER SUPERVISOR, lab, RT, psych nurse, rn social services, sr. payroll manager, teacher, peace officer, corrections caseworker)? Give summary @ -Dr. Woody Was smoking cessation discussed for >3mins.? @ -No Was critical care preformed (if so, how long)? @ -No Were there social determinants of health that impacted care today? How? (Homelessness, low income, unemployed, alcoholism, drug addiction, transportation, low edu. Level, literacy, decrease access to med. care, penitentiary, rehab)? @ -No Was there de-escalation of care discussed even if they declined (Discuss DNR or withdrawal of care, Hospice)? DNR status @ -No What co-morbidities impacted this encounter? (DM, HTN, Smoking, COPD, CAD, Cancer, CVA, ARF, Chemo, Hep., AIDS, mental health diagnosis, sleep apnea, morbid obesity)? @ -Lung CA, recurrent pleural effusion Was patient admitted / discharged? Hospital course, mention meds given and route, prescriptions, significant lab abnormalities, going to OR and other pe rtinent info. @ -72-year-old female with increasing dyspnea over the past several days and chest tightness. X-ray showing large pleural effusion on the right. Patient has required thoracentesis in the past. Patient will be placed in observation with consultation to pulmonology. Undiagnosed new problem with uncertain prognosis? @ -No Drug Therapy requiring intensive monitoring for toxicity (Heparin, Nitro, Insulin, Cardizem)? @ -No Were any procedures done? @ -No Diagnosis/symptom? @ -Pleural effusion, dyspnea Acute, or Chronic, or Acute on Chronic? @ Acute on chronic Uncomplicated (without systemic symptoms) or Complicated (systemic symptoms)? @ -Complicated Side effects of treatment? @ -No Exacerbation, Progression, or Severe Exacerbation? @ -No Poses a threat to life or bodily function? How? (Chest pain, [place], [place], pneumonia, PE, COPD, DKA, ARF, appy, cholecystitis, CVA, Diverticulitis, Homicidal, Suicidal, threat to staff... and all critical care pts) @ -[Yes, pleural effusion, respiratory distress, hypoxia - Lab Data Result diagrams: 01/02/23 08:47 01/02/23 08:47 Lab Results 01/02/23 01/02/23 01/02/23 Range/Units 08:47 08:47 08:47 WBC 7.3 (3.8-10.6) k/uL RBC 4.17 (3.80-5.40) m/uL Hgb 12.1 (11.4-16.0) gm/dL Hct 37.0 (34.0-46.0) % MCV 88.9 (80.0-100.0) fL MCH 28.9 (25.0-35.0) pg MCHC 32.5 (31.0-37.0) g/dL RDW 15.5 (11.5-15.5) % Plt Count 175 (150-450) k/uL MPV 9.6 Neutrophils % 75 % Lymphocytes % 10 % Monocytes % 10 % Eosinophils % 3 % Basophils % 0 % Neutrophils # 5.4 (1.3-7.7) k/uL Lymphocytes # 0.8 L (1.0-4.8) k/uL Monocytes # 0.7 (0-1.0) k/uL Eosinophils # 0.2 (0-0.7) k/uL Basophils # 0.0 (0-0.2) k/uL PT 10.4 (9.0-12.0) sec INR 1.0 (<1.2) APTT 28.0 (22.0-30.0) sec Sodium 130 L (137-145) mmol/L Potassium 4.4 (3.5-5.1) mmol/L Chloride 98 (98-107) mmol/L Carbon Dioxide 27 (22-30) mmol/L Anion Gap 5 mmol/L BUN 14 (7-17) mg/dL Creatinine 0.47 L (0.52-1.04) mg/dL Est GFR (CKD-EPI)AfAm >90 (>60 ml/min/1.73 sqM) Est GFR (CKD-EPI)NonAf >90 (>60 ml/min/1.73 sqM) Glucose 153 H (74-99) mg/dL Calcium 7.8 L (8.4-10.2) mg/dL Magnesium 1.9 (1.6-2.3) mg/dL Total Bilirubin 0.8 (0.2-1.3) mg/dL AST 27 (14-36) U/L ALT 18 (4-34) U/L Alkaline Phosphatase 81 (38-126) U/L Troponin I (0.000-0.034) ng/mL NT-Pro-B Natriuret Pep 851 pg/mL Total Protein 6.1 L (6.3-8.2) g/dL Albumin 3.1 L (3.5-5.0) g/dL 01/02/23 Range/Units 08:47 WBC (3.8-10.6) k/uL RBC (3.80-5.40) m/uL Hgb (11.4-16.0) gm/dL Hct (34.0-46.0) % MCV (80.0-100.0) fL MCH (25.0-35.0) pg MCHC (31.0-37.0) g/dL RDW (11.5-15.5) % Plt Count (150-450) k/uL MPV Neutrophils % % Lymphocytes % % Monocytes % % Eosinophils % % Basophils % % Neutrophils # (1.3-7.7) k/uL Lymphocytes # (1.0-4.8) k/uL Monocytes # (0-1.0) k/uL Eosinophils # (0-0.7) k/uL Basophils # (0-0.2) k/uL PT (9.0-12.0) sec INR (<1.2) APTT (22.0-30.0) sec Sodium (137-145) mmol/L Potassium (3.5-5.1) mmol/L Chloride (98-107) mmol/L Carbon Dioxide (22-30) mmol/L Anion Gap mmol/L BUN (7-17) mg/dL Creatinine (0.52-1.04) mg/dL Est GFR (CKD-EPI)AfAm (>60 ml/min/1.73 sqM) Est GFR (CKD-EPI)NonAf (>60 ml/min/1.73 sqM) Glucose (74-99) mg/dL Calcium (8.4-10.2) mg/dL Magnesium (1.6-2.3) mg/dL Total Bilirubin (0.2-1.3) mg/dL AST (14-36) U/L ALT (4-34) U/L Alkaline Phosphatase (38-126) U/L Troponin I <0.012 (0.000-0.034) ng/mL NT-Pro-B Natriuret Pep pg/mL Total Protein (6.3-8.2) g/dL Albumin (3.5-5.0) g/dL Disposition Clinical Impression: Pleural effusion, Dyspnea, Lung cancer Disposition: ADMITTED IP TO THIS [facility] Condition: Stable Is patient prescribed a controlled substance at d/c from ED?: No Referrals: Martin Woody MD [Primary Care Provider] - 1-2 days Time of Disposition: 10:00
[2023-01-02 09:03] LABS: Basophils % (A) 0 %; Eosinophils # (A) 0.2 k/uL (0-0.7); Eosinophils % (A) 3 %; HGB 12.1 gm/dL (11.4-16.0); Lymphocytes # (A) 0.8 k/uL (1.0-4.8); Lymphocytes % (A) 10 %; MCH 28.9 pg (25.0-35.0); MCHC 32.5 g/dL (31.0-37.0); MCV 88.9 fL (80.0-100.0); Mean Platelet Volume 9.6; Monocytes # (A) 0.7 k/uL (0-1.0); Monocytes % (A) 10 %; Neutrophils # (A) 5.4 k/uL (1.3-7.7); Neutrophils % (A) 75 %; Platelet Count 175 k/uL (150-450); RBC 4.17 m/uL (3.80-5.40); RDW 15.5 % (11.5-15.5); WBC 7.3 k/uL (3.8-10.6)
[2023-01-02 09:11] LABS: Prothrombin Time 10.4 sec (9.0-12.0)
[2023-01-02 09:19] LABS: ALT 18 U/L (4-34); AST 27 U/L (14-36); African American GFR (CKD) >90 (>60 ml/min/1.73 sqM); Albumin 3.1 g/dL (3.5-5.0); Alkaline Phosphatase 81 U/L (38-126); Anion Gap 5 mmol/L; Blood Urea Nitrogen 14 mg/dL (7-17); Calcium 7.8 mg/dL (8.4-10.2); Carbon Dioxide 27 mmol/L (22-30); Chloride 98 mmol/L (98-107); Glucose 153 mg/dL (74-99); Magnesium 1.9 mg/dL (1.6-2.3); Non-African American GFR(CKD) >90 (>60 ml/min/1.73 sqM); Potassium 4.4 mmol/L (3.5-5.1); Sodium 130 mmol/L (137-145); Total Bilirubin 0.8 mg/dL (0.2-1.3); Total Protein 6.1 g/dL (6.3-8.2)
--- NOTE | 2023-01-02 09:23 | XR ---
EXAMINATION TYPE: XR chest 2V DATE OF EXAM: 01/02/2023 9:18 AM COMPARISON: Chest radiographs from 11/03/2022. TECHNIQUE: XR chest 2V Frontal and lateral views of the chest. CLINICAL INDICATION:Female, 72 years old with history of difficulty breathing; FINDINGS: Lungs/Pleura: Blunting of the bilateral costophrenic angles, right greater than left.. There is no ev idence of pleural effusion, focal consolidation, or pneumothorax. Pulmonary vascularity: Unremarkable. Heart/mediastinum: Cardiomediastinal silhouette is unremarkable. Musculoskeletal: No acute osseous pathology. Scoliosis changes spine. IMPRESSION: Moderate right and small left pleural effusions. This has increased on the right compared to prior.
[2023-01-02 09:27] LABS: NT-Pro-B-Type Natriuretic Pept 851 pg/mL
[2023-01-02] MEDS ORDERED: NALOXONE 0.4 MG/ML 1 ML VIAL IV PRN (09:57)
[2023-01-02] MEDS ORDERED: SUMAtriptan succinate 50 MG TAB PO PRN (11:06)
[2023-01-02] MEDS: ACETAMINOPHEN TAB 325 MG TAB PO PRN (12:56)
--- NOTE | 2023-01-02 13:57 | P.CNPUL ---
History of Present Illness Consult date: 01/02/23 Requesting physician: Martin Woody Reason for consult: dyspnea, chest pain, hypoxemia, pleural effusion, lung mass, abnormal CXR/CT Chief complaint: Shortness of breath. History of present illness: Pulmonary consult dated 01/02/2023. 72-year-old female with a history of adenocarcinoma of the lung, diagnosed back in 2017. The patient was recently inpatient, in October of this year, complaining of shortness of breath. At that time, we performed a thoracentesis, on the right side, secondary to a large right-sided pleural effusion. 1.75 L of bloody fluid was removed. Her lung cancer was initially treated with radiation, and Tarceva. She does have a history of hyperlipidemia, osteoarthritis, pneumonia, SVT, skin cancer, and migraine cephalgia. Last time she was here, I told the patient that she should consider a Pleurx catheter, which would be a better option than periodic thoracentesis. Currently, the patient is on Tagrisso, and sees Dr. Zaldivar as her medical oncologist. Today we talk about the Pleurx catheter, and she is in agreement. I will notify cardiothoracic surgery, so this can be done in a timely fashion. White count is 7.3, hemoglobin 12.1, hematocrit 37, and platelet count 175,000. Sodium 130, potassium 4.4, chlorides 98, CO2 27, BUN 14, creatinine 0.47. The cytology from her last thoracentesis, performed by me, was positive cytologically, for metastatic pulmonary adenocarcinoma. Chest x-ray shows a moderate right side and a small left-sided pleural effusion. Review of Systems REVIEW OF SYSTEMS: CONSTITUTIONAL: [Negative.] NEUROLOGIC: [ Negative.] HEENT: [ Negative.] CARDIAC: Right chest discomfort. PULMONARY: Shortness of breath. GI: [Negative.] : [Negative.] RHEUMATOLOGIC: [ Negative.] IMMUNOLOGIC: [ Negative.] ENDOCRINE: [Negative. ] DERMATOLOGIC: [Negative.] Past Medical History Past Medical History: Cancer, Hyperlipidemia, Osteoarthritis (OA), Pneumonia, Supraventricular Tachycardia (SVT) Additional Past Medical History / Comment(s): migraines, constipation, hx skin cancer, " a lot of belching", lung cancer History of Any Multi-Drug Resistant Organisms: None Reported Past Surgical History: Breast Surgery, Orthopedic Surgery, Tonsillectomy Additional Past Surgical History / Comment(s): laparoscopy, A&P repair, rt foot martrins neuroma removed, oophorectomy, left breast biopsy, removal of skin cancer from back, Past Anesthesia/Blood Transfusion Reactions: No Reported Reaction Past Psychological History: No Psychological Hx Reported Smoking Status: Never smoker Past Alcohol Use History: Rare Past Drug Use History: None Reported - Past Family History Sister(s) Family Medical History: Cancer Additional Family Medical History / Comment(s): lung cancer Father Family Medical History: Cancer Additional Family Medical History / Comment(s): prostate cancer Medications and Allergies Home Medications Medication Instructions Recorded Confirmed Type Atorvastatin [Lipitor] 20 mg PO HS 07/25/16 01/02/23 History Calcium Carbonate [Calcium] 600 mg PO HS 07/25/16 01/02/23 History Cetirizine HCl [Zyrtec] 10 mg PO HS 07/25/16 01/02/23 History Docusate [Colace] 200 mg PO BID 07/25/16 01/02/23 History Multivitamins, Thera [Multivitamin 1 tab PO DAILY 07/25/16 01/02/23 History (formulary)] SUMAtriptan succinate [Imitrex] 100 mg PO DAILY PRN 07/25/16 01/02/23 History atenoloL [Tenormin] 50 mg PO DAILY 07/25/16 01/02/23 History Cholecalciferol [Vitamin D3 (25 50 mcg PO DAILY 11/02/22 01/02/23 History Mcg = 1000 Iu)] Dorzolamide/Timolol/Pf 1 drop LEFT EYE HS 11/02/22 01/02/23 History [Dorzolamide 2%-Timolol 0.5%] Montelukast [Singulair] 10 mg PO DAILY 11/02/22 01/02/23 History Aspirin 81 mg PO DAILY #30 tab 11/03/22 01/02/23 Rx Osimertinib Mesylate [Tagrisso] 80 mg PO DAILY 01/02/23 01/02/23 History Allergies Allergy/AdvReac Type Severity Reaction Status Date / Time Penicillins Allergy Rash/Hives Verified 01/02/23 10:20 Physical Exam Osteopathic Statement: *. No significant issues noted on an osteopathic structu ral exam other than those noted in the History and Physical/Consult. Vitals: Vital Signs Temp Pulse Resp BP Pulse Ox 01/02/23 08:19 98.1 F 87 18 126/77 98 Intake and Output 01/01/23 01/02/23 01/02/23 22:59 06:59 14:59 Other: Weight 76.657 kg No acute distress, oriented 3. Currently on 3 L by nasal cannula. HEENT examination is grossly unremarkable. Mucous membranes are moist. No oral lesions. Neck supple. Full range of motion. No adenopathy thyromegaly or neck vein distention. Cardiovascular examination reveals regular rhythm rate. S1-S2 normal. No S3 or S4. No discernible murmur noted. Heart rate 87 bpm. Lungs reveal diminished breath sounds on the right, with dullness on the right side. Left breath sounds are relatively clear. 3 L saturation is 98%. Abdomen soft bowel sounds are heard. No masses or tenderness. Extremities are intact. No cyanosis clubbing or edema. Skin is without rash or lesion. Neurologic examination is brief but nonfocal. Results - Laboratory Findings CBC and BMP: 01/02/23 08:47 01/02/23 08:47 PT/INR, D-dimer PT 10.4 sec (9.0-12.0) 01/02/23 08:47 INR 1.0 (<1.2) 01/02/23 08:47 Abnormal lab findings: Abnormal Labs 01/02/23 01/02/23 08:47 08:47 Lymphocytes # 0.8 L Sodium 130 L Creatinine 0.47 L Glucose 153 H Calcium 7.8 L Total Protein 6.1 L Albumin 3.1 L - Diagnostic Findings Chest x-ray: image reviewed Assessment and Plan Assessment: Acute hypoxemic respiratory failure secondary to recurrent right-sided malignant pleural effusion, secondary to lung cancer/adenocarcinoma. Status post recent right-sided thoracentesis, October 2022. 1.75 L removed, cytology positive. History of non-small cell lung cancer/adenocarcinoma, status post radiation, and immune therapy, diagnosed in 2016. History of hyperlipidemia. Osteoarthritis. History of pneumonia. History of SVT. History of skin cancer. Migraine cephalgia. Plan: Plan dated 01/02/2023. The patient was initially diagnosed with lung cancer in 2016, via bronchoscopy and biopsy. The patient is undergoing treatment including radiation therapy, Tarceva, and more recently Tagrisso. I recently saw the patient in October of this year, for shortness of breath and chest pain, and we did a right-sided thoracentesis, and 1.75 L of bloody fluid was removed. The fluid was sent for cytology and was positive. The patient returns to the ER, complaining of increasing shortness of breath, and right-sided chest discomfort. I did mention a Pleurx catheter on her last admission. We will contact cardiothoracic surgery to consider a Pleurx catheter placement. Additional recommendations and suggestions are forthcoming. Prognosis is guarded. Time with Patient: Greater than 30
--- NOTE | 2023-01-02 14:08 | P.GSCN ---
History of Present Illness Consult date: 01/02/23 Reason for Consult: Recurrent right-sided malignant pleural effusion Requesting physician: Cale Prakash History of present illness: This is a 72-year-old female patient who follows outpatient with Dr. Woody for primary care, Dr. Zaldivar for oncology, and Dr. Prakash for pulmonology. 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 She presented to [facility] emergency room today with complaints of progressive shortness of breath over the last 48 hours. She was hospitalized here recently in October of this year for the same and underwent right-sided thoracentesis by Dr. Prakash with removal of 1.75 mL fluid, pathology was positive for metastatic adenocarcinoma. She was advised at that time and that if the fluid recurred she would likely need another thoracentesis or possibly Pleurx catheter placement. She was discharged home after that admission on home oxygen, however she stopped using it a couple of weeks after discharge. She had an outpatient PET scan completed demonstrating worsening disease within the lungs with increased right upper lobe consolidation and FDG avidity as well as new consolidation changes along the lateral aspect of the right lower lobe and small right pleural effusion. In the last couple days as her shortness of breath has increased she again started using her oxygen. She also complains of some chest discomfort mostly on the right but does spread across her entire chest. Denies any fevers or productive cough. Chest x-ray in the emergency room revealed moderate right-sided pleural effusion as well as small left-sided pleural effusion. Lab work revealed WBC 7.3, hemoglobin 12.1, sodium 1:30, cr eatinine 0.47, troponin negative, BNP 851. The patient is to be admitted for observation with consultation placed to pulmonology and oncology. Due to finding of recurrent right-sided pleural effusion consultation was placed to cardiothoracic surgery by Dr. Prakash for placement of right-sided Pleurx catheter. Review of Systems Review of systems was completed and was negative except as noted - Cardiovascular Reports as per HPI, Reports chest pain, Reports shortness of breath Past Medical History Past Medical History: Cancer, Hyperlipidemia, Osteoarthritis (OA), Pneumonia, Supraventricular Tachycardia (SVT) Additional Past Medical History / Comment(s): migraines, constipation, hx skin cancer, " a lot of belching", lung cancer (adenocarcinoma diagnosed in July 2016); recurrent right-sided malignant pleural effusion History of Any Multi-Drug Resistant Organisms: None Reported Past Surgical History: Breast Surgery, Orthopedic Surgery, Tonsillectomy Additional Past Surgical History / Comment(s): laparoscopy, A&P repair, rt foot martrins neuroma removed, oophorectomy, left breast biopsy, removal of skin cancer from back, right sided thoracentesis October 2022 with removal of 1.75 L Past Anesthesia/Blood Transfusion Reactions: No Reported Reaction Past Psychological History: No Psychological Hx Reported Smoking Status: Never smoker Past Alcohol Use History: Rare Past Drug Use History: None Reported - Past Family History Sister(s) Family Medical History: Cancer Additional Family Medical History / Comment(s): lung cancer Father Family Medical History: Cancer Additional Family Medical History / Comment(s): prostate cancer Medications and Allergies Home Medications Medication Instructions Recorded Confirmed Type Atorvastatin [Lipitor] 20 mg PO HS 07/25/16 01/02/23 History Calcium Carbonate [Calcium] 600 mg PO HS 07/25/16 01/02/23 History Cetirizine HCl [Zyrtec] 10 mg PO HS 07/25/16 01/02/23 History Docusate [Colace] 200 mg PO BID 07/25/16 01/02/23 History Multivitamins, Thera [Multivitamin 1 tab PO DAILY 07/25/16 01/02/23 History (formulary)] SUMAtriptan succinate [Imitrex] 100 mg PO DAILY PRN 07/25/16 01/02/23 History atenoloL [Tenormin] 50 mg PO DAILY 07/25/16 01/02/23 History Cholecalciferol [Vitamin D3 (25 50 mcg PO DAILY 11/02/22 01/02/23 History Mcg = 1000 Iu)] Dorzolamide/Timolol/Pf 1 drop LEFT EYE HS 11/02/22 01/02/23 History [Dorzolamide 2%-Timolol 0.5%] Montelukast [Singulair] 10 mg PO DAILY 11/02/22 01/02/23 History Aspirin 81 mg PO DAILY #30 tab 11/03/22 01/02/23 Rx Osimertinib Mesylate [Tagrisso] 80 mg PO DAILY 01/02/23 01/02/23 History Allergies Allergy/AdvReac Type Severity Reaction Status Date / Time Penicillins Allergy Rash/Hives Verified 01/02/23 10:20 Surgical - Exam Vital Signs Temp Pulse Resp BP Pulse Ox 98.1 F 87 18 126/77 98 01/02/23 08:19 01/02/23 08:19 01/02/23 08:19 01/02/23 08:19 01/02/23 08:19 CONSTITUTIONAL: Awake and alert, appears comfortable, cooperative, well-developed, well-nourished, no pain, no acute distress EYES: Pupils equal, round, reactive to light, normal ocular movement ENT: Moist mucous membranes without oral lesions present NECK: No masses, no bruits, trachea midline RESPIRATORY: Lungs sounds very diminished on the right. Respirations even, nonlabored. Currently on 3 L nasal cannula with oxygen saturation 98%. Strong cough CARDIOVASCULAR: S1, S2 present. Regular rate and rhythm, sinus rhythm on telemetry. Palpable peripheral pulses bilaterally. No edema present GASTROINTESTINAL: Abdomen soft, nontender, nondistended without masses or organomegaly noted. There is no rebound or guarding present. Active bowel sounds present 4 quadrants. GENITOURINARY: Deferred INTEGUMENTARY: Skin is warm and dry with evidence of good perfusion. NEUROLOGIC: Cranial nerves II through XII intact, normal coordination, no obvious motor or sensory deficits, speech is normal MUSKULOSKELETAL: Able to move all extremities, strength equal bilaterally, normal posture PSYCHIATRIC: Alert and oriented to person place and time, appropriate affect, intact judgment and insight Results - Labs 01/02/23 08:47 01/02/23 08:47 Abnormal Lab Results - Last 24 Hours (Table) 01/02/23 01/02/23 Range/Units 08:47 08:47 Lymphocytes # 0.8 L (1.0-4.8) k/uL Sodium 130 L (137-145) mmol/L Creatinine 0.47 L (0.52-1.04) mg/dL Glucose 153 H (74-99) mg/dL Calcium 7.8 L (8.4-10.2) mg/dL Total Protein 6.1 L (6.3-8.2) g/dL Albumin 3.1 L (3.5-5.0) g/dL Diabetes panel 01/02/23 Range/Units 08:47 Sodium 130 L (137-145) mmol/L Potassium 4.4 (3.5-5.1) mmol/L Chloride 98 (98-107) mmol/L Carbon Dioxide 27 (22-30) mmol/L BUN 14 (7-17) mg/dL Creatinine 0.47 L (0.52-1.04) mg/dL Glucose 153 H (74-99) mg/dL Calcium 7.8 L (8.4-10.2) mg/dL AST 27 (14-36) U/L ALT 18 (4-34) U/L Alkaline Phosphatase 81 (38-126) U/L Total Protein 6.1 L (6.3-8.2) g/dL Albumin 3.1 L (3.5-5.0) g/dL Calcium panel 01/02/23 Range/Units 08:47 Calcium 7.8 L (8.4-10.2) mg/dL Albumin 3.1 L (3.5-5.0) g/dL Pituitary panel 01/02/23 Range/Units 08:47 Sodium 130 L (137-145) mmol/L Potassium 4.4 (3.5-5.1) mmol/L Chloride 98 (98-107) mmol/L Carbon Dioxide 27 (22-30) mmol/L BUN 14 (7-17) mg/dL Creatinine 0.47 L (0.52-1.04) mg/dL Glucose 153 H (74-99) mg/dL Calcium 7.8 L (8.4-10.2) mg/dL Adrenal panel 01/02/23 Range/Units 08:47 Sodium 130 L (137-145) mmol/L Potassium 4.4 (3.5-5.1) mmol/L Chloride 98 (98-107) mmol/L Carbon Dioxide 27 (22-30) mmol/L BUN 14 (7-17) mg/dL Creatinine 0.47 L (0.52-1.04) mg/dL Glucose 153 H (74-99) mg/dL Calcium 7.8 L (8.4-10.2) mg/dL Total Bilirubin 0.8 (0.2-1.3) mg/dL AST 27 (14-36) U/L ALT 18 (4-34) U/L Alkaline Phosphatase 81 (38-126) U/L Total Protein 6.1 L (6.3-8.2) g/dL Albumin 3.1 L (3.5-5.0) g/dL - Imaging Chest x-ray: report reviewed, image reviewed Additional studies: Previous PET scan, computed tomography scan reviewed Assessment and Plan Assessment: Recurrent right-sided pleural effusion Acute hypoxemic respiratory failure, currently on 3 L nasal cannula Shortness of breath, chest discomfort secondary to above Hyponatremia History of pulmonary adenocarcinoma diagnosed in July 2016 with previous radiation and maintenance on Tarceva with recent failure of treatment and addition of Tagrisso Right-sided malignant pleural effusion drained for 1.75 L in October 2022, pathology consistent with adenocarcinoma History of hyperlipidemia, treated History of SVT Lifelong nonsmoker Plan: The patient was seen and examined in the emergency room with family present. Chart/diagnostics reviewed. The case was discussed with Dr. Prakash, and will be discussed with Dr. Kimball. The usual perioperative course of Pleurx catheter placement was discussed with the patient and her family, risks and benefits reviewed, all questions were answered. Further recommendations regarding Pleurx catheter placement forthcoming once discussed with the surgeon. In the meantime, wean O2 as tolerated. Increase activity as tolerated. Management of other comorbidities per internal medicine, oncology, pulmonology. Thank you Dr. Prakash for this consult. I have personally seen and examined the patient, performed the documentation and the assessment and plan as written. Number of minutes spent on the visit: 30. ANNETTE Pedro Pt seen and evaluated with FURN[employer]IVERY DRIVER above. Agree with his assessment and plan. This is a 72 y/o F with a diagnosis of lung cancer back in 2015 who presents with recurrent right sided effusion. She would benefit from pleurX catheter placement. I spent 30 minutes reviewing the data and discussing findings with the team. Time with Patient: Greater than 30
[2023-01-02] MEDS: DOCUSATE 100 MG CAP PO SCH (21:12)
[2023-01-02] MEDS: CALCIUM CARBONATE 500 MG CHEWABLE PO SCH (21:12)
[2023-01-02] MEDS: HYDROcodone/APAP 5-325MG 1 EACH TAB PO PRN (21:12)
[2023-01-02] MEDS: LORATADINE 10 MG TAB PO SCH (21:12)
[2023-01-02] MEDS: DORZOLAMIDE-TIMOLOL 2.23%/0.68 10ML BTL LEFT EYE SCH (21:14)
--- NOTE | 2023-01-03 02:29 | HP ---
HISTORY AND PHYSICAL CHIEF COMPLAINT: Shortness of breath. HISTORY OF PRESENT ILLNESS: This is another admission for this 72-year-old female, who has had longstanding history of small cell carcinoma of the lung. She remained stable for many years and then recently started to have more difficulty with identification of some enlargement of her primary lesions and then she started to have trouble with right-sided pleural effusions. She came in once and had this Pap. She had been doing fairly well and then in the last day or 2, she has suddenly become short of breath and came to the hospital where she was found to have a large right-sided pleural effusion. REVIEW OF SYSTEMS: She has had no headaches, cough, hemoptysis, chest pain, abdominal pain, melena, hematochezia, jaundice, hematuria, frequency, urgency, incontinence, etc. Past medical history, family history, and personal and social history revealed she is allergic to penicillin. MEDICATIONS: She is on, 1. Montelukast. 2. Atorvastatin. 3. Atenolol. 4. Tagrisso 80 mg once a day. 5. Tylenol. 6. Hydrocodone. 7. Sumatriptan for migraines. 8. Zyrtec. 9. Vitamin D. She does not smoke or drink. PHYSICAL EXAMINATION: VITAL SIGNS: Blood pressure is 121/76 with a pulse of 89, respirations of 40 and she is afebrile. GENERAL: She appeared to be short of breath. SKIN: Color was normal. Skin was well hydrated. HEAD, EARS, EYES, NOSE, MOUTH AND THROAT: Normal. CHEST: Demonstrated decreased breath sounds on the right side. CARDIAC: Normal. ABDOMEN: Soft and nontender. EXTREMITIES: Normal. IMPRESSION: 1. Right-sided pleural effusion. 2. Small cell carcinoma of the lung. 3. History of migraine. PLAN: 1. Bed rest. 2. IV fluids. 3. Pleurocentesis. 4. Consult with Pulmonology and Oncology. MMODL / IJN: [id number] /
[2023-01-03] MEDS: atenoloL 50 MG TAB PO SCH (08:40)
[2023-01-03] MEDS: MONTELUKAST 10 MG TAB PO SCH (08:40)
[2023-01-03] MEDS: DOCUSATE 100 MG CAP PO SCH ×2 (08:40→20:18)
[2023-01-03] MEDS: ACETAMINOPHEN TAB 325 MG TAB PO PRN ×2 (08:44→17:43)
[2023-01-03] MEDS ORDERED: NON FORMULARY DRUG (Osimertinib Mesylate [Tagrisso] 80 MG Tablet) PO SCH (09:00)
--- NOTE | 2023-01-03 11:03 | P.PN ---
Subjective Progress Note Date: 01/03/23 72-year-old female with a history of adenocarcinoma of the lung, diagnosed back in 2016. The patient was recently inpatient, in October of this year, complaining of shortness of breath. At that time, we performed a thoracentesis, on the right side, secondary to a large right-sided pleural effusion. 1.75 L of bloody fluid was removed. Her lung cancer was initially treated with radiation, and Tarceva. She does have a history of hyperlipidemia, osteoarthritis, pneumonia, SVT, skin cancer, and migraine cephalgia. Last time she was here, I told the patient that she should consider a Pleurx catheter, which would be a better option than periodic thoracentesis. Currently, the patient is on Tagrisso, and sees Dr. Zaldivar as her medical oncologist. Today we talk about the Pleurx catheter, and she is in agreement. I will notify cardiothoracic surgery, so this can be done in a timely fashion. White count is 7.3, hemoglobin 12.1, hematocrit 37, and platelet count 175,000. Sodium 130, potassium 4.4, chlorides 98, CO2 27, BUN 14, creatinine 0.47. The cytology from her last thoracentesis, performed by me, was positive cytologically, for metastatic pulmonary adenocarcinoma. Chest x-ray shows a moderate right side and a small left-sided pleural effusion. The patient is seen today 01/03/2023 in follow-up on the regular medical floor. She is currently sitting up in bed. Awake and alert in no acute distress. Maintaining good O2 saturations in the 90s on 2 L/m per nasal cannula. No IV was. Plan is for Pleurx catheter placement today. No new labs. Objective - Vital Signs Vital signs: Vital Signs Temp 98.3 F 01/03/23 07:00 Pulse 89 01/03/23 07:00 Resp 16 01/03/23 07:00 BP 109/61 01/03/23 07:00 Pulse Ox 97 01/03/23 07:00 FiO2 Intake & Output 01/02/23 01/03/23 01/03/23 18:59 06:59 18:59 Weight 76.657 kg Other: # Voids 1 1 - Exam GENERAL EXAM: Alert, active, pleasant 72-year-old female, sitting up in a chair, on 2 L nasal cannula, comfortable in no apparent distress. HEAD: Normocephalic. EYES: Normal reaction of pupils, equal size. NOSE: Clear with pink turbinates. THROAT: No erythema or exudates. NECK: No masses, no JVD. CHEST: No chest wall deformity. LUNGS: Equal air entry with minimal breath sounds in the right lung base. CVS: S1 and S2 normal with no audible murmur, regular rhythm. ABDOMEN: No hepatosplenomegaly, normal bowel sounds, no guarding or rigidity. SPINE: No scoliosis or deformity SKIN: No rashes CENTRAL NERVOUS SYSTEM: No focal deficits, tone is normal in all 4 extremities. EXTREMITIES: There is no peripheral edema. No clubbing, no cyanosis. Peripheral pulses are intact. - Labs CBC & Chem 7: 01/02/23 08:47 01/02/23 08:47 Assessment and Plan Assessment: Acute hypoxemic respiratory failure secondary to recurrent right-sided malignant pleural effusion, secondary to lung cancer/adenocarcinoma. Status post recent right-sided thoracentesis, October 2022. 1.75 L removed, cytology positive. History of non-small cell lung cancer/adenocarcinoma, status post radiation, and immune therapy, diagnosed in 2017. History of hyperlipidemia. Osteoarthritis. History of pneumonia. History of SVT. History of skin cancer. Migraine cephalgia. Plan: The patient was seen and evaluated Currently stable on 2 L nasal cannula Plan is for Pleurx catheter placement today We will continue to follow I have personally seen and examined the patient, performed the documentation and the assessment and plan as written. Number of minutes spent on the visit: 10.
[2023-01-03] MEDS: ASPIRIN 81 MG PO SCH (11:49)
--- NOTE | 2023-01-03 14:33 | P.PN ---
Subjective Progress Note Date: 01/03/23 Principal diagnosis: Recurrent right-sided pleural effusion, acute hypoxemic respiratory failure, shortness of breath, chest discomfort, hyponatremia. History of pulmonary adenocarcinoma diagnosed in July 2016 with previous radiation and maintenance on Tarceva with recent failure of treatment and addition of Tagrisso, right- sided malignant pleural effusion drained for 1.75 L in October 2022, pathology consistent with adenocarcinoma, hyperlipidemia, SVT, lifelong nonsmoker The patient was seen and examined sitting up in bed in no acute distress on the medical observation unit. She was scheduled for right sided pleurx catheter placement today but procedure was cancelled and rescheduled for tomorrow due to physician emergent unavailability. Denies current chest pain, shortness of breath although does get SOB with any exertion. Currently on 2 LPM NC with oxygen saturation in the high 90s. Teaching done regarding pleurx catheter, home care ordered, case management consulted, all questions answered. Patient is disappointed but does understand the delay. Objective - Vital Signs Vital signs: Vital Signs Temp 97.9 F 01/03/23 13:43 Pulse 79 01/03/23 13:43 Resp 16 01/03/23 13:43 BP 114/76 01/03/23 13:43 Pulse Ox 98 01/03/23 13:43 FiO2 Intake & Output 01/02/23 01/03/23 01/03/23 18:59 06:59 18:59 Weight 76.657 kg Other: # Voids 1 1 6 - Exam CONSTITUTIONAL: Appears comfortable, cooperative, no acute distress RESPIRATORY: Lungs sounds diminished bilaterally, right greater than left. Respirations even, nonlabored. Currently on 2 LPM NC with oxygen saturation 98% CARDIOVASCULAR: S1, S2 present. Regular rate and rhythm. Palpable peripheral pulses bilaterally. No edema present. No calf pain or tenderness noted GASTROINTESTINAL: Abdomen soft, nontender, nondistended. Active bowel sounds present 4 quadrants GENITOURINARY: Continues to void INTEGUMENTARY: Skin is warm and dry NEUROLOGIC: Cranial nerves II through XII intact MUSKULOSKELETAL: Able to move all extremities, strength equal bilaterally, gait normal PSYCHIATRIC: Alert and oriented to person place and time, appropriate affect, intact judgment and insight - Labs CBC & Chem 7: 01/02/23 08:47 01/02/23 08:47 Assessment and Plan Assessment: Recurrent right-sided pleural effusion Acute hypoxemic respiratory failure, currently on 2 L nasal cannula Shortness of breath, chest discomfort secondary to above Hyponatremia History of pulmonary adenocarcinoma diagnosed in July 2016 with previous radiation and maintenance on Tarceva with recent failure of treatment and addition of Tagrisso Right-sided malignant pleural effusion drained for 1.75 L in October 2022, pathology consistent with adenocarcinoma History of hyperlipidemia, treated History of SVT Lifelong nonsmoker Plan: The patient is re-scheduled for right sided pleurx catheter placement by Dr. Cowart tomorrow 01/04/23 NPO after midnight except sips of water for meds Wean oxygen as tolerated, encourage incentive spirometry use Increase activity as tolerated Management of other comorbidities per internal medicine, oncology, pulmonology. From our standpoint patient may be discharged tomorrow after pleurx catheter placed Home care ordered for drainage. Patient may be drained daily, every other day, twice weekly, etc depending on symptomatology Patient may call our office for appointment for pleurx removal once drainage has slowed to less than 50 mL for 3 times in a row
--- NOTE | 2023-01-03 17:58 | P.CONS ---
History of Present Illness - Reason for Consult Consult date: 01/03/23 hx lung cancer Requesting physician: Martin Woody - Chief Complaint SOB - History of Present Illness Patient is a 72-year-old female with a significant history of metastatic non- small cell lung carcinoma. She is a patient of Dr. Zaldivar. Patient initially presented with persistent cough, started around , she had a CXR which was suspicious for pneumonia, then had a CT scan of chest on 06/2016 which revealed 3.3cm mass in RUL, right hilar and mediastinal nodes up to 1.4cm, many bilateral lung nodules measuring up to 9mm,and fractured left 6th rib. S ubsequent PET scan revealed suspicious uptake (SUV 8.5) in RUL mass,uptake in pretracheal nodes (SUV 5.7) and suspicious uptake in subcarinal nodes (SUV 7.2) and rihjt infrahilar node,subtle uptake in left infrahilar area (SUV 3.7),suspicious uptake and appearance of left 6th rib (SUV of 3.3) and gaspar spicious uptake in left transverse process with SUV of 5.3. Bronchoscopy and transbronchial FNA of 2 paratracheal nodes were psoitive for adenocarcinoma,IHC were consistent with lung primary. Brain MRI was negative for metastatic disease. She was started on tarceva on 08/2016 and had stable disease until October 2020 when brain MRI revealed very small questionable lesion in brain stem. She saw Dr Trujillo who recommended monitoring. She underwent SBRT to right suprahilar node completed on 08/2021. She continued to do well until mid October/2022 when she presented with dyspnea and cough. Imaging studies revealed large right pleural effusion, and on 11/03/2022, she underwent right diagnostic and therapeutic thoracentesis. Cytology was positive for metastatic adenocarcinoma consistent with lung primary. She had a repeat PET scan on 11/17/2022 revealed worsening disease in her lung. She started osimertinib on 11/21/22. Patient presented to the emergency room with increasing shortness of breath over the last 2 days. She also reports temperature of 99.3 at home. She reports chills and runny nose. Denies cough. Denies hemoptysis. Denies chest pain and dizziness. Chest x-ray showed moderate right and small left pleural effusions. This has increased on the right compared to prior exam. Cardiothoracic surgery has been consulted with plans for Pleurx placement today. CBC stable, WBC 7.3, hemoglobin 12.1, platelets 175,000. Troponin WNL. BNP 851. Patient reports at today's visit she is feeling improved. Still experiencing mild shortness of breath on exertion. Denies pain. Patient is afebrile. SPO2 97% on 2 L Review of Systems 10 point ROS is negative except as stated in the HPI Past Medical History Past Medical History: Cancer, Hyperlipidemia, Osteoarthritis (OA), Pneumonia, Supraventricular Tachycardia (SVT) Additional Past Medical History / Comment(s): migraines, constipation, hx skin cancer, " a lot of belching", lung cancer (adenocarcinoma diagnosed in July 2016); recurrent right-sided malignant pleural effusion History of Any Multi-Drug Resistant Organisms: None Reported Past Surgical History: Breast Surgery, Orthopedic Surgery, Tonsillectomy Additional Past Surgical History / Comment(s): laparoscopy, A&P repair, rt foot martrins neuroma removed, oophorectomy, left breast biopsy, removal of skin cancer from back, right sided thoracentesis October 2022 with removal of 1.75 L Past Anesthesia/Blood Transfusion Reactions: No Reported Reaction Past Psychological History: No Psychological Hx Reported Smoking Status: Never smoker Past Alcohol Use History: Rare Past Drug Use History: None Reported - Past Family History Sister(s) Family Medical History: Cancer Additional Family Medical History / Comment(s): lung cancer Father Family Medical History: Cancer Additional Family Medical History / Comment(s): prostate cancer Medications and Allergies Home Medications Medication Instructions Recorded Confirmed Type Atorvastatin [Lipitor] 20 mg PO HS 07/25/16 01/02/23 History Calcium Carbonate [Calcium] 600 mg PO HS 07/25/16 01/02/23 History Cetirizine HCl [Zyrtec] 10 mg PO HS 07/25/16 01/02/23 History Docusate [Colace] 200 mg PO BID 07/25/16 01/02/23 History Multivitamins, Thera [Multivitamin 1 tab PO DAILY 07/25/16 01/02/23 History (formulary)] SUMAtriptan succinate [Imitrex] 100 mg PO DAILY PRN 07/25/16 01/02/23 History atenoloL [Tenormin] 50 mg PO DAILY 07/25/16 01/02/23 History Cholecalciferol [Vitamin D3 (25 50 mcg PO DAILY 11/02/22 01/02/23 History Mcg = 1000 Iu)] Dorzolamide/Timolol/Pf 1 drop LEFT EYE HS 11/02/22 01/02/23 History [Dorzolamide 2%-Timolol 0.5%] Montelukast [Singulair] 10 mg PO DAILY 11/02/22 01/02/23 History Aspirin 81 mg PO DAILY #30 tab 11/03/22 01/02/23 Rx Osimertinib Mesylate [Tagrisso] 80 mg PO DAILY 01/02/23 01/02/23 History Allergies Allergy/AdvReac Type Severity Reaction Status Date / Time Penicillins Allergy Rash/Hives Verified 01/02/23 10:20 Physical Exam Vitals: Vital Signs Temp Pulse Resp BP Pulse Ox 01/03/23 13:43 97.9 F 79 16 114/76 98 01/03/23 07:00 98.3 F 89 16 109/61 97 01/03/23 02:00 98.2 F 94 102/65 94 L 01/02/23 20:00 98.7 F 100 17 114/66 98 Intake and Output 01/03/23 01/03/23 01/03/23 06:59 14:59 22:59 Other: # Voids 1 6 - Constitutional General appearance: average body habitus, no acute distress - EENT Eyes: anicteric sclerae, EOMI ENT: hearing grossly normal - Neck Neck: no lymphadenopathy - Respiratory Respiratory: left: diminished, rales (rales LLL) - Cardiovascular Rhythm: regular Heart sounds: normal: S1, S2 Abnormal Heart Sounds: no systolic murmur, no diastolic murmur, no rub, no S3 Gallop, no S4 Gallop, no click, no other leg Peripheral Edema: bilateral: None - Gastrointestinal General gastrointestinal: normal bowel sounds, soft, no tenderness - Integumentary Integumentary: no cyanotic, no jaundiced - Neurologic grossly intact - Musculoskeletal Musculoskeletal: strength equal bilaterally - Psychiatric Psychiatric: A&O x's 3, appropriate affect, intact judgment & insight Results CBC & Chem 7: 01/02/23 08:47 01/02/23 08:47 Chest x-ray: report reviewed Assessment and Plan (1) Lung cancer Current Visit: Yes Status: Acute Priority: High Code(s): C34.90 - MALIGNANT NEOPLASM OF UNSP PART OF UNSP BRONCHUS OR LUNG SNOMED Code(s): 104029213 (2) Pleural effusion Current Visit: Yes Status: Acute Priority: High Code(s): J90 - PLEURAL EFFUSION, NOT ELSEWHERE CLASSIFIED SNOMED Code(s): 33138434 Plan: Metastatic NSCLC: -She was started on tarceva on 08/2016 and had stable disease until October 2020 when brain MRI revealed very small questionable lesion in brain stem. She saw Dr Trujillo who recommended monitoring. She underwent SBRT to right suprahilar node completed on 08/2021. She continued to do well until mid October/2022 when she presented with dyspnea and cough. Imaging studies revealed large right pleural effusion, and on 11/03/2022, she underwent right diagnostic and therapeutic thoracentesis. Cytology was positive for metastatic adenocarcinoma consistent with lung primary. She had a repeat PET scan on 11/17/2022 revealing worsening disease in her lung. -Currently on treatment with Tagrisso, starting new regimen on 11/21/22 -May continue Tagrisso. Counts stable, WBC 7.3, hemoglobin 12.1, platelets 175,000 Pleural effusions: -Recurrent pleural effusions. Last thoracentesis 11/03/22 -Chest x-ray showed moderate right and small left pleural effusions. This has increased on the right compared to prior exam. -Cardiothoracic surgery has been consulted with plans for Pleurx placement rachel amezquita. Spoke with cardiothoracic team and requested cytology be sent on pleural fluid. Effusion may be reactive vs malignant. Will await cytology results -Patient is afebrile. SPO2 97% on 2L. She is reporting improvement in symptoms. Will continue to monitor attests: I have seen and examined pt, performed H&P, developed impression and plan of care. Discussed with dictator. Agree with documentation, dictated as a scribe.
[2023-01-03] MEDS: DORZOLAMIDE-TIMOLOL 2.23%/0.68 10ML BTL LEFT EYE SCH (20:18)
[2023-01-03] MEDS: LORATADINE 10 MG TAB PO SCH (20:18)
[2023-01-03] MEDS: CALCIUM CARBONATE 500 MG CHEWABLE PO SCH (20:18)
--- NOTE | 2023-01-03 20:40 | PN ---
PROGRESS NOTE CHIEF COMPLAINT: Right pleural effusion. HISTORY OF PRESENT ILLNESS: This lady is feeling much better. When she is at rest with nasal O2, she is comfortable. Tomorrow, she is scheduled for PleurX placement. PHYSICAL EXAMINATION: CHEST: Breath sounds are diminished on the right and clear on the left. CARDIAC: Normal. IMPRESSION: 1. [id number] carcinoma of the lung. 2. Right pleural effusion. PLAN: Surgery is scheduled for tomorrow. MMODL / IJN: [id number] /
[2023-01-04] MEDS: HYDROcodone/APAP 5-325MG 1 EACH TAB PO PRN ×2 (00:35→16:33)
[2023-01-04] MEDS: ACETAMINOPHEN TAB 325 MG TAB PO PRN (06:35)
[2023-01-04] MEDS: DOCUSATE 100 MG CAP PO SCH (09:38)
[2023-01-04] MEDS: ASPIRIN 81 MG PO SCH (09:38)
[2023-01-04] MEDS: MONTELUKAST 10 MG TAB PO SCH (09:38)
[2023-01-04] MEDS: atenoloL 50 MG TAB PO SCH (09:38)
--- NOTE | 2023-01-04 11:38 | P.PN ---
Subjective Progress Note Date: 01/04/23 72-year-old female with a history of adenocarcinoma of the lung, diagnosed back in 2017. The patient was recently inpatient, in October of this year, complaining of shortness of breath. At that time, we performed a thoracentesis, on the right side, secondary to a large right-sided pleural effusion. 1.75 L of bloody fluid was removed. Her lung cancer was initially treated with radiation, and Tarceva. She does have a history of hyperlipidemia, osteoarthritis, pneumonia, SVT, skin cancer, and migraine cephalgia. Last time she was here, I told the patient that she should consider a Pleurx catheter, which would be a better option than periodic thoracentesis. Currently, the patient is on Tagrisso, and sees Dr. Zaldivar as her medical oncologist. Today we talk about the Pleurx catheter, and she is in agreement. I will notify cardiothoracic surgery, so this can be done in a timely fashion. White count is 7.3, hemoglobin 12.1, hematocrit 37, and platelet count 175,000. Sodium 130, potassium 4.4, chlorides 98, CO2 27, BUN 14, creatinine 0.47. The cytology from her last thoracentesis, performed by me, was positive cytologically, for metastatic pulmonary adenocarcinoma. Chest x-ray shows a moderate right side and a small left-sided pleural effusion. The patient is seen today 01/03/2023 in follow-up on the regular medical floor. She is currently sitting up in bed. Awake and alert in no acute distress. Maintaining good O2 saturations in the 90s on 2 L/m per nasal cannula. No IV was. Plan is for Pleurx catheter placement today. No new labs. The patient is seen today 01/04/2023 in follow-up on the regular medical floor. She is currently sitting up in a chair. Awake and alert in no acute distress. Maintaining good O2 saturations in the 90s on 2 L/m per nasal cannula. Unfort unately the Pleurx catheter did not get placed yesterday but the plan is for Pleurx catheter placement today. Objective - Vital Signs Vital signs: Vital Signs Temp 98.2 F 01/04/23 07:00 Pulse 88 01/04/23 07:00 Resp 16 01/04/23 07:00 BP 113/73 01/04/23 07:00 Pulse Ox 96 01/04/23 08:36 FiO2 Intake & Output 01/03/23 01/04/23 01/04/23 18:59 06:59 18:59 Other: # Voids 6 1 - Exam GENERAL EXAM: Alert, 72-year-old female, up in a chair, on 2 L nasal cannula, comfortable in no apparent distress. HEAD: Normocephalic. EYES: Normal reaction of pupils, equal size. NOSE: Clear with pink turbinates. THROAT: No erythema or exudates. NECK: No masses, no JVD. CHEST: No chest wall deformity. LUNGS: Equal air entry with minimal breath sounds in the right lung base. CVS: S1 and S2 normal with no audible murmur, regular rhythm. ABDOMEN: No hepatosplenomegaly, normal bowel sounds, no guarding or rigidity. SPINE: No scoliosis or deformity SKIN: No rashes CENTRAL NERVOUS SYSTEM: No focal deficits, tone is normal in all 4 extremities. EXTREMITIES: There is no peripheral edema. No clubbing, no cyanosis. Peripheral pulses are intact. - Labs CBC & Chem 7: 01/02/23 08:47 01/02/23 08:47 Assessment and Plan Assessment: Acute hypoxemic respiratory failure secondary to recurrent right-sided malignant pleural effusion, secondary to lung cancer/adenocarcinoma. Status post recent right-sided thoracentesis, October 2022. 1.7 L removed, cytology positive. History of non-small cell lung cancer/adenocarcinoma, status post radiation, and immune therapy, diagnosed in 2017. History of hyperlipidemia. Osteoarthritis. History of pneumonia. History of SVT. History of skin cancer. Migraine cephalgia. Plan: The patient was seen and evaluated Currently stable on 2 L nasal cannula Plan is for Pleurx catheter placement today Titrate down the FiO2 as tolerated Increase her activity as tolerated We will continue to follow I have personally seen and examined the patient, performed the documentation and the assessment and plan as written. Number of minutes spent on the visit: 10.
[2023-01-04] MEDS ORDERED: NON FORMULARY DRUG (Osimertinib Mesylate [Tagrisso] 80 MG Tablet) PO SCH (12:00)
[2023-01-04] MEDS ORDERED: LACTATED RINGERS 1,000 ML IV ONE (13:19)
--- NOTE | 2023-01-04 13:30 | P.PN ---
Subjective Progress Note Date: 01/04/23 Principal diagnosis: pleural effusions At todays visit, pt is reporting improvement in symptoms. Mild SOB. Denies pain. Scheduled for pleurx drain today Objective - Vital Signs Vital signs: Vital Signs Temp 98.0 F 01/04/23 13:02 Pulse 83 01/04/23 13:02 Resp 16 01/04/23 13:02 BP 113/55 01/04/23 13:02 Pulse Ox 95 01/04/23 13:02 FiO2 Intake & Output 01/03/23 01/04/23 01/04/23 18:59 06:59 18:59 Weight 76.657 kg Other: # Voids 6 1 - Constitutional General appearance: Present: average body habitus, no acute distress - EENT Eyes: Present: anicteric sclerae, EOMI ENT: Present: hearing grossly normal - Respiratory Details: breathing is even and unlabored - Cardiovascular Details: skin warm and dry - Integumentary Integumentary: Absent: cyanotic, rash - Neurologic Neurologic Comment(s): grossly intact - Musculoskeletal Musculoskeletal: Present: strength equal bilaterally - Psychiatric Psychiatric: Present: A&O x's 3, appropriate affect, intact judgment & insight - Labs CBC & Chem 7: 01/02/23 08:47 01/02/23 08:47 Assessment and Plan (1) Lung cancer Current Visit: Yes Status: Acute Priority: High Code(s): C34.90 - MALIGNA NT NEOPLASM OF UNSP PART OF UNSP BRONCHUS OR LUNG SNOMED Code(s): 478791409 (2) Pleural effusion Current Visit: Yes Status: Acute Priority: High Code(s): J90 - PLEURAL EFFUSION, NOT ELSEWHERE CLASSIFIED SNOMED Code(s): 87465085 Plan: Metastatic NSCLC: -She was started on tarceva on 08/2016 and had stable disease until October 2020 when brain MRI revealed very small questionable lesion in brain stem. She saw Dr Trujillo who recommended monitoring. She underwent SBRT to right suprahilar node completed on 08/2021. She continued to do well until mid October/2022 when she presented with dyspnea and cough. Imaging studies revealed large right pleural effusion, and on 11/03/2022, she underwent right diagnostic and therapeutic thoracentesis. Cytology was positive for metastatic adenocarcinoma consistent with lung primary. She had a repeat PET scan on 11/17/2022 revealing worsening disease in her lung. -Currently on treatment with Tagrisso, starting new regimen on 11/21/22 -May continue Tagrisso. Counts stable, WBC 7.3, hemoglobin 12.1, platelets 175,000 -Clinic f/u next week, in d/c plan Pleural effusions: -Recurrent pleural effusions. Last thoracentesis 11/03/22 -Chest x-ray showed moderate right and small left pleural effusions. This has increased on the right compared to prior exam. -Cardiothoracic surgery has been consulted with plans for Pleurx placement today. Spoke with cardiothoracic team and requested cytology be sent on pleural fluid. Effusion may be reactive vs malignant. Will await cytology results -Patient is afebrile. SPO2 96% on 2L. She is reporting improvement in symptoms. Will continue to monitor Patient is cleared for discharge from hem/onc standpoint once cleared by IM and other consulted medical specialities
[2023-01-04] MEDS ORDERED: LIDOCAINE 1% INJ 10MG/ML (5 ML VIAL-PF) SQ ONE ×2 (13:40→13:56)
[2023-01-04] MEDS ORDERED: MIDAZOLAM 2 MG/2 ML VIAL ONE (13:45)
[2023-01-04] MEDS ORDERED: KETAMINE 10 MG/ML 20 ML VIAL ONE (13:45)
[2023-01-04] MEDS ORDERED: PROPOFOL 10 MG/ML 20 ML VIAL IV ONE (13:45)
--- NOTE | 2023-01-04 14:27 | FL ---
Intraoperative/procedural fluoroscopic services were provided. Total fluoroscopy time is 11.4 seconds with a total of 1 submitted images to PACS. Please see the operative/procedural note for further det ails. DAP: [phone] Gym2
--- NOTE | 2023-01-04 14:28 | P.OP ---
Date of Procedure: 01/04/23 Preoperative Diagnosis: Metastatic recurrent lung cancer with malignant recurrent pleural effusion Postoperative Diagnosis: Same Procedure(s) Performed: PleurX catheter insertion Implants: PleurX Anesthesia: LEONORAA Surgeon: Jacob Kimball Estimated Blood Loss (ml): 5 Pathology: other (fluid for cytology) Condition: stable Disposition: PACU Indications for Procedure: This patient is a 72 year-old female who was diagnosed with adenocarcinoma of the lung in 2017 and has undergone immunotx. She presented with recurrent right sided effusion and previous cytology has been positive for metastatic adenocarcinoma. She now requires a pleurx catheter placement. Operative Findings: 1300cc of serous fluid removed from right lung and some sent for repeat cytology Description of Procedure: The patient was brought back to the operating room and placed in the supine position. She was sedated and antibiotics were given. A bump was placed under her right chest. The chest was prepped and draped in the usual sterile fashion. I used 1% lidocaine to anethetize two areas, one over the costal margin and the other in the 6th ICS. I inserted the introducer needle into this space and inserted the guidewire. Placement was confirmed using flouroscopy. An incision was made here and anteriorly. The catheter was tunneled from anterior to posterior and introduced into the chest using the sheath under guidance. 1300 cc of serous fluid was removed and some was sent for cytology. 3-0 monocryl was used to close the skin posteriorly as well as glue and a sterile dressing was applied.
--- NOTE | 2023-01-04 14:34 | XR ---
EXAMINATION TYPE: XR chest 1V portable DATE OF EXAM: 01/04/2023 2:27 PM COMPARISON: Chest radiographs from 01/02/2023 TECHNIQUE: XR chest 1V portable Portable AP radiograph of the chest. CLINICAL INDICATION:Female, 72 years old with history of pleurx catheter insertion; FINDINGS: Lungs/Pleura: Similar small left pleural effusion. Decreased now small right pleural effusion status post Pleurx catheter placement. Right basilar atelectasis. No sizable pneumothorax. Pulmonary vascularity: Unremarkable. Heart/mediastinum: Cardiomediastinal silhouette is enlarged and stable. Atherosclerotic calcificatio ns are seen in the aorta. Musculoskeletal: No acute osseous pathology. IMPRESSION: 1. Decreased now small right pleural effusion status post Pleurx catheter placement. No sizable pneu mothorax. 2. Similar small left pleural effusion. 3. Cardiomegaly.
[2023-01-04 15:48] VITALS: RESP 16; TEMP 97.3
[2023-01-04 16:49] VITALS: BP 113/70; PULSE 94
--- NOTE | 2023-01-10 11:49 | P.DS ---
Providers Date of admission: 01/02/23 09:57 Expected date of discharge: 01/04/23 Attending physician: Martin Woody Consults: 01/02/23 09:57 Consult Physician Routine Consulting Provider: Cale Prakash Consult Reason/Comments: Pleural effusion Do you want consulting provider notified?: Yes 01/02/23 11:08 Consult Physician Routine Consulting Provider: Kevan Hassan Consult Reason/Comments: Ca lung Do you want consulting provider notified?: Yes 01/02/23 14:29 Consult Physician Routine Consulting Provider: Jacob Kimball Consult Reason/Comments: right pleurx cath placement Do you want consulting provider notified?: Already Contacted Primary care physician: Martin Woody Hospital Course: Final diagnosis Right side pleural effusion, status post right-sided thoracentesis with positive cytology for lung adenocarcinoma Acute hypoxic respiratory failure secondary to recurrent right-sided pleural effusion, malignant status post Pleurx catheter placement History of hyperlipidemia Osteoarthritis history History of migraines Lifelong nonsmoker GI prophylaxis DVT prophylaxis Full code Discharge disposition Patient is being discharged in a stable condition with guarded prognosis to home with home care . Patient will follow-up with Dr. Woody in the outpatient setting upon discharge. Patient is to also follow up with CT surgery as well as oncology outpatient as scheduled. Total time taken is greater than 35 minutes. Hospital course This is a 72-year-old female who was recently admitted with right pleural effusion status post thoracentesis and also Pleurx catheter placement with CT surgery. Patient is requiring oxygen has oxygen in the outpatient setting and would like to go home. Awaiting follow-up education from CT surgery regarding Pleurx catheter and drainage. Patient will have home care in the outpatient setting and will follow-up with oncology as well as primary care provider on discharge. Patient has been cleared by consultations for discharge. Please refer to consultation no for further HPI. Currently no reports of chest pain, shortness of breath, or palpitations. Patient is afebrile. No reports of nausea or vomiting and patient is tolerating diet. Patient will be discharged home today. Physical exam: Gen: This is a 72-year-old female who is awake, alert and oriented 3, well- developed, well-nourished HEENT: Head is atraumatic, normocephalic. Pupils equal, round. Sclerae is anicteric. NECK: Supple. No JVD. No lymphadenopathy. No thyromegaly. LUNGS: Diminished breath sounds bilaterally more so on the right with no wheezing and some scattered rhonchi noted HEART: Regular rate and rhythm. No murmur. ABDOMEN: Soft. Bowel sounds are present. No masses. No tenderness. EXTREMITIES: No pedal edema. No calf tenderness. NEUROLOGICAL: Patient is awake, alert and oriented x3. Cranial nerves 2 through 12 are grossly intact. Please refer to medication reconciliation sheet for a list of medications. The impression and plan of care has been dictated by Jolanta Garcia, Nurse Practitioner as directed. Dr. Jolanta MD I have performed a history and examination and MDM of this patient, discussed the same with the dictator, and agree with the dictator's assessment and plan as written ,documented as a scribe. Based on total visit time, I have performed more than 50% of the visit. Patient Condition at Discharge: Stable Plan - Discharge Summary Discharge Rx Participant: Yes New Discharge Prescriptions: New HYDROcodone/APAP 5-325MG [Camden 5-325] 1 each PO Q4HR PRN #6 tab PRN Reason: Pain Acetaminophen Tab [Tylenol] 650 mg PO Q6HR PRN tab PRN Reason: Mild Pain Or Fever > 100.5 Continue Docusate [Colace] 200 mg PO BID Calcium Carbonate [Calcium] 600 mg PO HS Multivitamins, Thera [Multivitamin (formulary)] 1 tab PO DAILY Cetirizine HCl [Zyrtec] 10 mg PO HS Atorvastatin [Lipitor] 20 mg PO HS atenoloL [Tenormin] 50 mg PO DAILY SUMAtriptan succinate [Imitrex] 100 mg PO DAILY PRN PRN Reason: migraines Dorzolamide/Timolol/Pf [Dorzolamide 2%-Timolol 0.5%] 1 drop LEFT EYE HS Osimertinib Mesylate [Tagrisso] 80 mg PO DAILY Cholecalciferol [Vitamin D3 (25 Mcg = 1000 Iu)] 50 mcg PO DAILY Montelukast [Singulair] 10 mg PO DAILY Aspirin 81 mg PO DAILY #30 tab Discharge Medication List Atorvastatin [Lipitor] 20 mg PO HS 07/25/16 [History] Calcium Carbonate [Calcium] 600 mg PO HS 07/25/16 [History] Cetirizine HCl [Zyrtec] 10 mg PO HS 07/25/16 [History] Docusate [Colace] 200 mg PO BID 07/25/16 [History] Multivitamins, Thera [Multivitamin (formulary)] 1 tab PO DAILY 07/25/16 [History] SUMAtriptan succinate [Imitrex] 100 mg PO DAILY PRN 07/25/16 [History] atenoloL [Tenormin] 50 mg PO DAILY 07/25/16 [History] Cholecalciferol [Vitamin D3 (25 Mcg = 1000 Iu)] 50 mcg PO DAILY 11/02/22 [H istory] Dorzolamide/Timolol/Pf [Dorzolamide 2%-Timolol 0.5%] 1 drop LEFT EYE HS 11/02/22 [History] Montelukast [Singulair] 10 mg PO DAILY 11/02/22 [History] Aspirin 81 mg PO DAILY #30 tab 11/03/22 [Rx] Osimertinib Mesylate [Tagrisso] 80 mg PO DAILY 01/02/23 [History] Acetaminophen Tab [Tylenol] 650 mg PO Q6HR PRN tab 01/04/23 [Rx] HYDROcodone/APAP 5-325MG [Camden 5-325] 1 each PO Q4HR PRN #6 tab 01/04/23 [Rx] Follow up Appointment(s)/Referral(s): Martin Woody MD [Primary Care Provider] - 1-2 days [facility], [NON-STAFF] - 1 Week Jacoby Up NPC [Nurse Practitioner] - 01/10/23 11:30 am (Hospital followup. [facility] office, [address], behind [facility] ) Jacob Kimball MD [STAFF PHYSICIAN] - As Needed (Please call office for pleurx removal once drainage is less than 50 mL for 3 times in a row) Activity/Diet/Wound Care/Special Instructions: PleurX discharge instructions: 1. Home Care is ordered, they will obtain new bottles. 2. May shower after 24 hours, no tub baths/hot tubs. 3. Do not drain more than 1 liter or 1000 mL in 24 hours. 4. New drainage bottle needed with each drainage. 5. Drainage frequency dictated by patient symptoms, may be every day, every other day, weekly, or however often the patient is symptomatic. 6. Please notify LAP WELDER or office if temperature >101F, excessive pain at insertion site, drainage consistency changes to cloudy or smells bad, catheter falls out, or anything else that concerns you. 7. Contact surgery office with weekly drainage amounts. May fax the amounts. 8. Once drainage is less than 50 mL three times in a row, notify the surgery office for possible removal. Surgery office: , fax Discharge Disposition: HOME WITH HOME HEALTH SERVICES
== END 2023-01-04 17:15 | disposition home health service (06) ==
LOC: EC 08:15 → 6NMEDSUR 09:57
PROVIDERS: ADMIT Family Medicine; ATTEND Family Medicine
DX: J91.0 Malignant pleural effusion (principal); C34.90 Malignant neoplasm of unspecified part of unspecified bronchus or lung; J96.01 Acute respiratory failure with hypoxia; M19.90 Unspecified osteoarthritis, unspecified site; G43.909 Migraine, unspecified, not intractable, without status migrainosus; E78.5 Hyperlipidemia, unspecified; E87.1 Hypo-osmolality and hyponatremia; I47.1 Supraventricular tachycardia; Z85.118 Personal history of other malignant neoplasm of bronchus and lung; Z85.828 Personal history of other malignant neoplasm of skin; Z87.01 Personal history of pneumonia (recurrent); Z79.899 Other long term (current) drug therapy; Z88.0 Allergy status to penicillin; Z79.82 Long term (current) use of aspirin; Z92.3 Personal history of irradiation; Z80.1 Family history of malignant neoplasm of trachea, bronchus and lung
CPT/HCPCS: 36415; 71045; 71046; 80053; 83735; 83880; 84484; 85025; 85610; 85730; 88108; 88305; 88341; 88342; 93005; 94760; 99285

== ENCOUNTER → 2023-01-19 | Outpatient (CLI) | payer MEDICARE, BC ==
--- NOTE | 2023-01-19 12:37 | MR ---
EXAMINATION TYPE: MR brain wo/w con DATE OF EXAM: 01/19/2023 COMPARISON: 07/20/2022 HISTORY: Lung CA, f/u to abnormal MRI Brain TECHNIQUE: Multiplanar, multisequence images of the brain and brainstem is performed without and with IV contras t, utilizing 8.5 mL intravenous Gadavist . FINDINGS: Diffusion weighted images demonstrate no evidence of a recent infarct or other diffusion ab normality. There is a hypointensity within the right brainstem at the level of the cerebellar peduncle. This is slightly increased in signal on T2-weighted sequences. This is stable in size currently measuring 1.5 x 1.5 cm. Previous measurement 1.5 x 1.5 cm. This area has a small vague area of enhancement, simila r to comparison. Areas of abnormal signal involving the white matter bilaterally are stable from prior exam most channing tible with remote white matter microvascular ischemia mild generalized degenerative change. Midline structures demonstrate normal morphology. The craniocervical junction appears within normal l imits. Changes of chronic sinusitis, bilateral chronic mastoiditis and the globes are intact. IMPRESSION: 1. Stable right brainstem lesion unchanged in size with small area of vague enhancement which demonst rates no significant interval change. Although a metastasis cannot be excluded this could be related to a small cryptic AVM or vascular anomaly. 2. Degenerative additional nonspecific areas of abnormal signal within the white matter which are mos t typical of remote white matter ischemia. 3. Chronic sinusitis and right mastoiditis
== END | disposition home or self-care (01) ==
LOC: RADMRIMAIN 10:13
PROVIDERS: ATTEND Radiology Radiation Oncology
DX: C34.11 Malignant neoplasm of upper lobe, right bronchus or lung (principal); C79.51 Secondary malignant neoplasm of bone; I67.82 Cerebral ischemia; H70.91 Unspecified mastoiditis, right ear; J32.9 Chronic sinusitis, unspecified; Z92.3 Personal history of irradiation; Z79.899 Other long term (current) drug therapy
CPT/HCPCS: 70553; A9585

== ENCOUNTER → 2023-02-02 | Outpatient (CLI) | payer MEDICARE, BC ==
--- NOTE | 2023-02-04 14:04 | PE ---
EXAMINATION TYPE: PET CT fusion skull to thigh DATE OF EXAM: 02/02/2023 CLINICAL INDICATION:Female, 72 years old with history of HYPOTHYROIDISM, UNSPECIFIED; TECHNIQUE: Following the intravenous administration of 12.5 mCi of F-18 FDG, whole body images are performed from the skull base to the midthigh. Images are reviewed on the computer in the coronal, a xial, and sagittal planes. Reconstructed rotating images are created on independent workstation and reviewed on the computer. A non-contrast CT is performed in conjunction with the PET scan. Glucose level 102 mg/dL CT DLP: 415.02 mGycm, Automated exposure control for dose reduction was used. COMPARISON: CT 10/30/2022, PET/CT 11/17/2022 and 08/11/2022 and priors, FINDINGS: Mediastinal SUV mean is 1.6. Hepatic parenchyma SUV mean is 2.0. SKULL BASE AND NECK: * Left supraclavicular lymph node measuring 4 mm in short axis max SUV 1.4, previously 1.9, 2.0, 2.3 , 2.0, 1.3. CHEST, MEDIASTINUM, AND HILAR REGION: * Right upper lung consolidation has decreased in size extending from the pulmonary hilum with posto bstructive atelectasis max SUV 3.9, previously 7.2, 4.9, 4.8, 4.4 , and 7.1. Area measures roughly 5. 6 x 1.8 cm , previously 5.6 x 3.4 cm * Right pulmonary hilum lymph node on today's exam is FDG avid max SUV 8.5. Evaluation of size limit ed without IV contrast. This blended with the right upper lung mass on the prior PET/CT.. * Subcarinal lymph node axis SUV 7.1, previously 3.9 4.3 , 4.3, 2.4 and 2.0. * Scattered airspace opacities throughout the right lung have decreased now. * Right low paratracheal lymph node max SUV 4.4, previously 3.3, 2.9, 3.2, 3.1 and 3.0. * Right high paratracheal lymph node max SUV 1.2, previously 2.8, 2.5. This is just below the right thyroid gland and/or in the most inferior aspect of the thyroid gland. * Bilateral axillary lymph nodes are increased and demonstrate FDG activity on the right measuring M ax SUV 4.2 measuring 9 mm in short axis with fatty hilum. On the left Max SUV 3.3 measuring 6 mm in s hort hilum. * New left internal mammary gland lymph nodes with max SUV 2.9 measuring 6 mm. * The right epicardial fat 7 mm lymph node SUV 3.4 previously 2 mm and max SUV 1.0. * Left pulmonary hilum lymph nodes max SUV 4.6 ABDOMEN AND PELVIS: No suspicious radiotracer activity. OSSEOUS STRUCTURES: No suspicious radiotracer activity. * Left transverse process of T1 max SUV 1.6, previously 1.7, 2.7, 2.[address]: Small right pleural effusion is noted. There is a right thoracotomy tube with tip layering in the ple ural fusion. New left pleural effusion. Atherosclerosis of the arterial vasculature. The heart is mil dly enlarged for size. Right hepatic lobe cyst. Scoliosis changes of the spine. Multilevel disc degen eration changes of the spine. A suspensory ring within the vagina. Small pericardial effusion. IMPRESSION: 1. Mixed response to therapy. There is a decrease in right upper lung dominant mass FDG activity and size with increased FDG activity within the right low paratracheal lymph node and persistent right p ulmonary hilum lymph node. Additionally, there is a new left internal mammary gland lymph nodes with mild FDG activity as well as a right epicardial fat lymph nodes are now with mild FDG activity and in creased size. 2. Increased FDG activity within the left pulmonary hilum lymph nodes compared to prior. Attention f ollow-up imaging. Please could be reactive to new pleural effusion. 3. Bilateral axillary lymph nodes with mild FDG activity suggestive of reactive lymphadenopathy. Att ention follow-up imaging. 4. Right thoracotomy tube with tip in appropriate position within the right pleural effusion. 5. New small left pleural effusion.
== END | disposition home or self-care (01) ==
LOC: RADPETMAIN 12:20
PROVIDERS: ATTEND Internal Medicine Hematology & Oncology
DX: C34.11 Malignant neoplasm of upper lobe, right bronchus or lung (principal); C79.51 Secondary malignant neoplasm of bone; R59.0 Localized enlarged lymph nodes; J90 Pleural effusion, not elsewhere classified; Z46.82 Encounter for fitting and adjustment of non-vascular catheter
CPT/HCPCS: 78815; A9552

== ENCOUNTER → 2023-04-13 | Outpatient (CLI) | payer MEDICARE, BC ==
--- NOTE | 2023-04-20 08:50 | PE ---
EXAMINATION TYPE: PET CT fusion skull to thigh DATE OF EXAM: 04/13/2023 COMPARISON: No recent pertinent CT exam. Prior PET/CT: 02/02/2023 HISTORY: Lung cancer TECHNIQUE: Following the intravenous administration of 10 mCi of F-18 FDG, whole body images are per formed from the skull base to the midthigh. Images are reviewed on the computer in the coronal, axia l, and sagittal planes. Reconstructed rotating images are created on independent workstation and rev iewed on the computer. A localization and attenuation correction CT is performed in conjunction wit h the PET scan. DLP: 471.76 mGycm SCAN: Subsequent Blood glucose: 86 mg/dL Average Mediastinum SUV: 2.13 Average Liver SUV: 2.61 FINDINGS: NECK: There are multiple scattered small lymph nodes present bilaterally with mild uptake suspicious for metastatic disease. Example images 29 on the left with SUV 3.15, image 31 right-sided SUV 4.02. The most intense appears to be at the angle of the right jaw with an SUV of 4.94. Image 29. THORAX: Multiple areas of focal uptake are present. Examples include the following Right axillary region adjacent to the chest wall. Image 60, SUV 5.12 Right axillary lymph node, image 67, SUV 7.4. Right paratracheal lymph node image 73, SUV 7.18 Subcarinal lymph node image 76, SUV 9.57. Right hilar uptake, image 76, SUV 13.18. Left hilar uptake image 78, SUV 10.85. Left lower axillary region, image 76, SUV 6.29 Left infrahilar region image 83, SUV 5.38. Right inferior axillary region, image 83 SUV 3.76. Left axillary tail region, image 88, SUV 5.15. Right upper lung field density along its medial aspect has a small focus of radiotracer uptake with S UV of 4. Image 69. ABDOMEN: Some focal uptake within the posterior left lobe thyroid The celiac axis region is not excluded. Image 124, SUV 4.4 PELVIS: Bilateral inguinal region uptake is present, image 198, right side SUV 3.05. Left-sided SUV 3 .85 Some mild uptake is within the left inguinal lymph node, image 220 SUV 3.15 OSSEOUS STRUCTURES: There may be some uptake within the anterior right S1 vertebral endplate level. I mage 175, SUV 4.[address]: Scoliosis as through the lumbar spine. There is a small right pleural effusion. Prio r left pleural effusion is resolved. Suspicious uptake within the right lung base density is not iden tified. The more peripheral portions of the right suprahilar mass are without uptake. COMPARISON: Uptake within small lymph nodes within the neck appears to be developing from comparison study. The uptake at the right angle of the jaw was present previously and is increased in SUV value. Previous axillary uptake appears less intense. Previous mediastinal uptake in the pretracheal space and uptake within the medial right upper lobe mass as well as subcarinal and bilateral hilar adenopat hy is diminished over the interval. Uptake within the upper abdomen is significantly diminished. Ingu inal uptake appears to be new. IMPRESSION: 1. There is diminishing uptake within the medial right upper lung mass as well as the mediastinal and hilar adenopathy. Axillary adenopathy is diminished in intensity. 2. There are some new areas of mild uptake in the supraclavicular and bilateral neck discussed above. 3. Diminished radiotracer upper abdomen.
== END | disposition home or self-care (01) ==
LOC: RADPETMAIN 13:51
PROVIDERS: ATTEND Internal Medicine Hematology & Oncology
DX: C34.11 Malignant neoplasm of upper lobe, right bronchus or lung (principal); R59.0 Localized enlarged lymph nodes
CPT/HCPCS: 78815; A9552

== ENCOUNTER → 2023-06-07 | Outpatient (CLI) | payer MEDICARE, BC ==
--- NOTE | 2023-06-09 11:45 | PE ---
EXAMINATION TYPE: PET CT fusion skull to thigh DATE OF EXAM: 06/07/2023 COMPARISON: 10/30/2022 CT chest Prior PET/CT: 04/13/2023 HISTORY: Lung cancer TECHNIQUE: Following the intravenous administration of 10.16 mCi of F-18 FDG, whole body images are performed from the skull base to the midthigh. Images are reviewed on the computer in the coronal, a xial, and sagittal planes. Reconstructed rotating images are created on independent workstation and reviewed on the computer. A localization and attenuation correction CT is performed in conjunction with the PET scan. DLP: 408.36 mGycm SCAN: Subsequent Blood glucose: 90 mg/dL Average Mediastinum SUV: 2.15 Average Liver SUV: 2.9 FINDINGS: NECK: Tiny area of uptake along the lateral left neck base, image 45, SUV 2.6 may be a small amount of brown fat. Suspicious uptake is not otherwise evident within the neck. THORAX: Right axillary lymph nodes have elevated SUV of 5.41, image 67 laterally and 3.24 medially. T here is a are hyperintense left axillary lymph nodes, image 69, SUV 5.6 medially and 5.27 laterally. An additional more lateral subcutaneous lymph node, image 70 has an SUV of 2.38. A more lateral lymph node within the subcutaneous tissues left inferior axilla image 74 has an SUV of 2.5. There is increased uptake in the right peribronchial region, image 76, SUV 6.44. There is intense upt mario within the right hilar lymph node image 80 comments the 9.2. Some subcarinal lymphadenopathy has increased SUV, image 80, SUV 8.07. Left infrahilar lymph node is present, image 83, SUV 5.34. ABDOMEN: No abnormal uptake PELVIS: No abnormal uptake OSSEOUS STRUCTURES: No abnormal uptake LOCALIZATION CT: Small right pleural effusion is present diminished from comparison. Suspicious uptak e within a right infrahilar mass is not identified. COMPARISON: Distribution of radiotracer within mediastinal axillary and hilar lymph nodes appear stacy lar. SUV values however are slightly diminished over the interval. No new adenopathy identified. IMPRESSION: 1. Similar distribution of radiotracer through the thorax axillary, hilar, and mediastinal lymph node s. SUV values are diminishing. No new areas of uptake are identified. Findings compatible with metast atic lung cancer. 2. Contain areas of uptake within the neck appears less intense.
== END | disposition home or self-care (01) ==
LOC: RADPETMAIN 11:53
PROVIDERS: ATTEND Internal Medicine Hematology & Oncology
DX: C34.11 Malignant neoplasm of upper lobe, right bronchus or lung (principal); R59.0 Localized enlarged lymph nodes
CPT/HCPCS: 78815; A9552

== ENCOUNTER → 2023-06-20 | Outpatient (CLI) | payer MEDICARE, BC ==
--- NOTE | 2023-06-20 08:44 | MR ---
EXAMINATION TYPE: MR brain wo/w con DATE OF EXAM: 06/20/2023 COMPARISON: MRI brain 01/19/2023, 3-23, 03/28/2022 HISTORY: Hx lung ca, f/u TECHNIQUE: Multiplanar, multisequence images of the brain and brainstem is performed without and with IV contras t, utilizing 8 mL intravenous Gadavist . FINDINGS: Diffusion weighted images demonstrate no evidence of a recent infarct or other diffusion ab normality. There is stable T2 hyperintensity within the right brainstem at the level of the cerebellar peduncle redemonstrated measuring 1.5 x 1.5 cm, previously 1.5 x 1.5 cm. This again demonstrates small vague a teresa of enhancement, similar to comparison. Areas of T2/FLAIR hyperintense signal involving the white matter bilaterally are stable from prior ex am most compatible with remote white matter microvascular ischemia. Midline structures demonstrate no rmal morphology. The craniocervical junction appears within normal limits. Changes of chronic sinusit is and left chronic mastoiditis. The globes are intact. No extra-axial fluid collection identified. T he ventricular system and cisternal spaces are normal in size and appearance. Brain volume is age barrie ropriate. IMPRESSION: 1. Stable right brainstem lesion with small area of vague enhancement again. No new suspicious lesion s. 2. Unchanged nonspecific areas of abnormal signal within the white matter which are most typical of r emote white matter ischemia. 3. Chronic sinusitis and left mastoiditis
== END | disposition home or self-care (01) ==
LOC: RADMRIMAIN 07:38
PROVIDERS: ATTEND Internal Medicine Hematology & Oncology
DX: H70.92 Unspecified mastoiditis, left ear (principal); I67.82 Cerebral ischemia; J32.9 Chronic sinusitis, unspecified
CPT/HCPCS: 70553; A9585

== ENCOUNTER → 2023-09-13 | Outpatient (CLI) | payer MEDICARE, BC ==
--- NOTE | 2023-09-13 12:11 | US ---
EXAMINATION TYPE: US venous doppler duplex LE DATE OF EXAM: 09/13/2023 11:01 AM COMPARISON: NONE CLINICAL INDICATION: Female, 73 years old with history of M79.662,M79.661,R22.42,R22.41; pain and swe lling BL LE, Hx lung cancer on treatments and baby aspirin SIDE PERFORMED: Bilateral TECHNIQUE: The lower extremity deep venous system is examined utilizing real time linear array sonog alejandrina with graded compression, doppler sonography and color-flow sonography. VESSELS IMAGED: Common Femoral Vein Deep Femoral Vein Greater Saphenous Vein * Femoral Vein Popliteal Vein Small Saphenous Vein * Proximal Calf Veins (* superficial vessels) Right Leg: Negative for DVT Left Leg: Negative for DVT IMPRESSION: Grayscale, color doppler, spectral doppler imaging performed of the deep veins of the lo wer extremities. There is normal flow, compressibility, vascular waveforms. Negative exam for DVT
== END | disposition home or self-care (01) ==
LOC: RADUSWWP 10:57
PROVIDERS: ATTEND Family Medicine
DX: M79.661 Pain in right lower leg (principal); R22.43 Localized swelling, mass and lump, lower limb, bilateral; M79.662 Pain in left lower leg; Z85.118 Personal history of other malignant neoplasm of bronchus and lung
CPT/HCPCS: 93970

== ENCOUNTER → 2023-09-17 | Outpatient (CLI) | payer MEDICARE, BC ==
--- NOTE | 2023-09-17 11:10 | US ---
EXAMINATION TYPE: US arterial LE single level DATE OF EXAM: 09/17/2023 10:38 AM CLINICAL INDICATION: Female, 73 years old with history of M79.662,M79.661,R22.42,R22.41 PAIN AND SWEL LING GARRETT LOWER LI; Pt has lung Ca and is going through treatment. Bilateral leg swelling. No rednes s. History of: Smoker: No Hypertension: No Diabetic: No Hyperlipidemia: Yes TIA/CVA: No Previous Vascular Surgery: No CAD: No TN: No Vascular Ulcers: No Claudication: No Gangrene: No Right Brachial Pressure: 134 Left Brachial Pressure: 121 Ankle-Brachial Indices: Right: 1.1 Left: 1.2 (Vessel hardening > 1.4; Normal 0.9 - 1.4, Moderate 0.7 - 0.9, Severe 0.5-0.7) IMPRESSION: 1. No suspicious flow-limiting stenosis lower extremity arterial system
== END | disposition home or self-care (01) ==
LOC: RADUSWWP 09:39
PROVIDERS: ATTEND Family Medicine
DX: R22.42 Localized swelling, mass and lump, left lower limb (principal); R22.41 Localized swelling, mass and lump, right lower limb; M79.662 Pain in left lower leg; M79.661 Pain in right lower leg
CPT/HCPCS: 93922

== ENCOUNTER → 2023-10-12 | Outpatient (CLI) | payer MEDICARE, BC ==
--- NOTE | 2023-10-16 08:37 | PE ---
EXAMINATION TYPE: PET CT fusion skull to thigh DATE OF EXAM: 10/12/2023 COMPARISON: No recent pertinent CT. Prior PET/CT: 06/07/2023 HISTORY: Lung cancer TECHNIQUE: Following the intravenous administration of 12.04 mCi of F-18 FDG, whole body images are performed from the skull base to the midthigh. Images are reviewed on the computer in the coronal, a xial, and sagittal planes. Reconstructed rotating images are created on independent workstation and reviewed on the computer. A localization and attenuation correction CT is performed in conjunction with the PET scan. DLP: 412.64 mGycm SCAN: Subsequent Blood glucose: 68 mg/dL Average Mediastinum SUV: 1.79 Average Liver SUV: 2.36 FINDINGS: NECK: No abnormal uptake THORAX: There is a focal area of uptake in the right peribronchial lymph node, image 81, SUV 4.11. Rodgers bcarinal lymph node is elevated uptake measuring 4.82. A right infrahilar lymph node is present image 85, series 6.91. Mild left infrahilar uptake is present measuring 3.25, image 87. Additional infrahi lar lymph nodes on the left measuring 4.31 SUV, image 91. Right upper lung field mass has diminished radiotracer measuring 2.28. Example image 79. Small peripheral nodule, image 103, has normal SUV of 0.83. ABDOMEN: No abnormal uptake PELVIS: No abnormal uptake OSSEOUS STRUCTURES: No abnormal uptake LOCALIZATION CT: Scoliosis and degenerative disc changes are within the lumbar spine. COMPARISON: Previous axillary adenopathy is not evident on the current exam. Uptake in the right uppe r lobe medial lung mass is diminished from previous 3.93 to current 2.28. Uptake within the mediastin al lymph nodes was present previously. Uptake within the mediastinal and hilar regions in general barrie ears diminished from comparison. IMPRESSION: 1. Diminished radiotracer in the right medial lung mass and mediastinal and hilar lymph nodes with mi ld persistent elevated levels in the range of neoplasm. 2. No new suspicious areas of uptake to suggest new metastasis.
== END | disposition home or self-care (01) ==
LOC: RADPETMAIN 13:24
PROVIDERS: ATTEND Internal Medicine Hematology & Oncology
DX: C34.11 Malignant neoplasm of upper lobe, right bronchus or lung (principal)
CPT/HCPCS: 78815; A9552

== ENCOUNTER → 2023-10-23 | Outpatient (CLI) | payer MEDICARE, BC ==
--- NOTE | 2023-10-23 17:28 | CA ---
Transthoracic Echo Report Name: Brie Christie Age: 73 Gender: F : 1950 Exam Date: 10/23/2023 14:57 Exam Location: [place] [facility] Ht (in): 67 Wt (lb): 175 Ordering Physician: Rachel Zaldivar MD Attending/Referring Phys: Rachel Zaldivar MD Assistant Corporation Counsel Priscila Sigala RDCS Procedure CPT: Indications: Z01.818 Chemo Cardiac Hx: Technical Quality: Fair Contrast 1: Total Dose (mL): Contrast 2: Total Dose (mL): MEASUREMENTS (Male / Female) Normal Values 2D ECHO LV Diastolic Diameter PLAX 3.1 cm 4.2 - 5.9 / 3.9 - 5.3 cm LV Systolic Diameter PLAX 2.3 cm IVS Diastolic Thickness 1.1 cm 0.6 - 1.0 / 0.6 - 0.9 cm LVPW Diastolic Thickness 1.3 cm 0.6 - 1.0 / 0.6 - 0.9 cm LV Relative Wall Thickness 0.8 RV Internal Dim ED PLAX 2.9 cm LA Volume 46.5 cm??? 18 - 58 / 22 - 52 cm??? LA Volume Index 23.8 cm???/m??? 16 - 28 cm???/m??? M-MODE Aortic Root Diameter MM 2.3 cm LA Systolic Diameter MM 3.2 cm LA Ao Ratio MM 1.4 AV Cusp Separation MM 1.9 cm DOPPLER AV Peak Velocity 139.7 cm/s AV Peak Gradient 7.8 mmHg AV Mean Velocity 87.6 cm/s AV Mean Gradient 3.6 mmHg AV Velocity Time Integral 29.3 cm MV Area PHT 3.5 cm??? Mitral E Point Velocity 48.2 cm/s Mitral A Point Velocity 64.8 cm/s Mitral E to A Ratio 0.7 MV Deceleration Time 217.4 ms MV E' Velocity 8.4 cm/s Mitral E to MV E' Ratio 5.7 TR Peak Velocity 217.1 cm/s TR Peak Gradient 18.9 mmHg Right Ventricular Systolic Press 23.4 mmHg FINDINGS Left Ventricle Mildly increased left ventricular wall thickness. Left ventricular cavity size normal. Normal left ventricular systolic function with no obvious regional wall motion abnormalities. Left ventricular ejection fraction is estimated at 55-60 %. Normal Left heart strain. Grade 1 diastolic dysfunction. Right Ventricle Normal right ventricular size and function. Right ventricular systolic pressure within normal limits. Right Atrium Normal right atrial size. Left Atrium Normal left atrial size. Mitral Valve Structurally normal mitral valve. Mild mitral annular calcification. Aortic Valve Trileaflet aortic valve. No aortic stenosis. Trace aortic regurgitation. Tricuspid Valve Structurally normal tricuspid valve. Mild tricuspid regurgitation. Pulmonic Valve Structurally normal pulmonic valve. Trace pulmonic regurgitation. Pericardium No pericardial effusion. Aorta Normal size aortic root and proximal ascending aorta. CONCLUSIONS Normal LV function Previewed by: Dr. Sukhjinder Hearn MD (Electronically Signed) Final Date: 23 October 2023 17:28
== END | disposition home or self-care (01) ==
LOC: RADECHMAIN 14:52
PROVIDERS: ATTEND Internal Medicine Hematology & Oncology
DX: Z01.818 Encounter for other preprocedural examination (principal); I47.10 Supraventricular tachycardia, unspecified; C79.51 Secondary malignant neoplasm of bone; C34.11 Malignant neoplasm of upper lobe, right bronchus or lung
CPT/HCPCS: 93306

== ENCOUNTER → 2024-01-08 | Outpatient (CLI) | payer MEDICARE, BC ==
--- NOTE | 2024-03-10 14:03 | MR ---
EXAMINATION TYPE: MR brain wo/w con DATE OF EXAM: 01/08/2024 COMPARISON: Correlation PET/CT 10/12/2023 and previous MRI 06/20/2023 HISTORY: 73-year-old female lung cancer, follow-up exam TECHNIQUE: Multiplanar, multisequence images of the brain and brainstem were acquired before and aft er administration of 7 mL IV Gadavist. Diffusion weighted imaging is performed. FINDINGS: Abnormal signal measuring 1.1 cm within the right ventral calli near the junction with the middle cere bral peduncle is redemonstrated. There is some faint wispy enhancement that remains within this regio n. No Enhancing enhancement or new lesions are seen. There is no evidence for acute infarction, mass effect, shift, herniation, effacement of basal cisterns, or extra-axial fluid collection. The ventricles and sulci are age-appropriate. Major intracranial flow voids are intact. T2/FLAIR weighted sequences otherwise show mild scattered bright signal change within the periventric ular and deep white matter regions of both cerebral hemispheres, unchanged. Midline structures demonstrate normal morphology. The craniocervical junction is normal. Post contrast images demonstrate no evidence of additional of pathologic enhancement. Dural venous s inuses are patent. There is rightward nasal septal deviation. Mild mucosal thickening ethmoid air cells. Globes are inta ct. Some fluid within the inferior left mastoid air cells. IMPRESSION: 1. Right brain stem lesion measuring 1.1 cm with internal faint, wispy enhancement remains unchanged. No new lesions are seen. 2. Unchanged mild burden of chronic small vessel ischemic disease. 3. Fluid in the left mastoid air cells shows partial improvement; correlate for any residual symptoms .
== END | disposition home or self-care (01) ==
LOC: RADMRIMAIN 09:55
PROVIDERS: ATTEND Radiology Radiation Oncology
DX: C34.11 Malignant neoplasm of upper lobe, right bronchus or lung (principal); C79.51 Secondary malignant neoplasm of bone; G93.89 Other specified disorders of brain; I67.82 Cerebral ischemia; Z92.3 Personal history of irradiation
CPT/HCPCS: 70553; A9585

== ENCOUNTER → 2024-01-17 | Outpatient (CLI) | payer MEDICARE, BC ==
--- NOTE | 2024-01-18 17:52 | PE ---
EXAMINATION TYPE: PET CT fusion skull to thigh DATE OF EXAM: 01/17/2024 CLINICAL INDICATION:Female, 73 years old with history of C34.11 MALIGNANT NEOPLASM OF UPPER LOBE, RIG HT BRO; TECHNIQUE: Following the intravenous administration of 6.02 mCi of F-18 FDG, whole body images are performed from the skull base to the midthigh. Images are reviewed on the computer in the coronal, a xial, and sagittal planes. Reconstructed rotating images are created on independent workstation and reviewed on the computer. A non-contrast CT is performed in conjunction with the PET scan. Glucose level 87 mg/dL CT DLP: 607.30 mGycm, Automated exposure control for dose reduction was used. COMPARISON: CT 10/30/2022, PET/CT 10/12/2023, 06/07/2023, 04/13/2023, 02/02/2023, MRI: 01/08/2024, 06/20/19, 01/19/2023 FINDINGS: Mediastinal SUV mean is 2.94. Hepatic parenchyma SUV mean is 3.78. SKULL BASE AND NECK: No suspicious radiotracer activity. CHEST, MEDIASTINUM, AND HILAR REGION: Focal area of uptake identified with a mildly enlarged 1 cm short axis right paratracheal lymph node (series 3, image 89) with a maximum SUV of 6.55, previously 4.15. Subcarinal lymph node demonstrates radiotracer uptake with a maximum SUV of 6.99, previously 5.32. Bilateral hilar lymph node uptake with a maximum SUV on the right of 7.64, previously 6.91. On the le ft maxillary SUV of 6.75, previously 4.46. Right upper lung field mass/postsurgical change atelectasis demonstrates a maximum SUV of 4.41, previ ously 3.3. Bilateral nonenlarged lymph nodes with a maximum SUV on the left measuring 4.09, previously 1.95. And on the right with a maximum SUV of 3.97, previously 1.76. ABDOMEN AND PELVIS: No suspicious radiotracer activity. MUSCULOSKELETAL STRUCTURES: No suspicious radiotracer activity. OTHER CT: Atherosclerosis of the arterial vasculature. Heart is mildly enlarged for size. Right hepat ic lobe cyst. Scoliosis changes of the spine. Multilevel disc degenerative changes of the spine. Susp ensory ring within the vagina. Nonobstructive left renal 3 mm calculus. Pelvic phleboliths. Small catherine cified uterine fibroid. Calcification within the right brain stem. Calcified granuloma within the lef t upper lobe. Right lower lobe linear scarring. IMPRESSION: Mildly increased radiotracer uptake within the right medial lung mass and mediastinal/hilar lymph nod es and bilateral axillary lymph nodes from prior PET/CT. Findings raise concern for persistent/worsen ing neoplasm. No new suspicious areas of uptake to suggest new metastasis.
== END | disposition home or self-care (01) ==
LOC: RADPETMAIN 12:15
PROVIDERS: ATTEND Internal Medicine Hematology & Oncology
DX: C34.11 Malignant neoplasm of upper lobe, right bronchus or lung (principal); C79.51 Secondary malignant neoplasm of bone; C34.90 Malignant neoplasm of unspecified part of unspecified bronchus or lung; I47.10 Supraventricular tachycardia, unspecified
CPT/HCPCS: 78815; A9552

== ENCOUNTER → 2024-05-08 | Outpatient (CLI) | payer MEDICARE, BC ==
--- NOTE | 2024-05-08 16:22 | PE ---
EXAMINATION TYPE: PET CT fusion skull to thigh DATE OF EXAM: 05/08/2024 CLINICAL INDICATION:Female, 73 years old with history of C34.11 LUNG CANCER; TECHNIQUE: Following the intravenous administration of 8.23 mCi of F-18 FDG, whole body images are performed from the skull base to the midthigh. Images are reviewed on the computer in the coronal, a xial, and sagittal planes. Reconstructed rotating images are created on independent workstation and reviewed on the computer. A non-contrast CT is performed in conjunction with the PET scan. Glucose level 102 mg/dL CT DLP: 607.53 mGycm, Automated exposure control for dose reduction was used. COMPARISON: CT 10/30/2022, PET/CT 01/17/2024, 10/12/2023, 06/07/2023, 04/13/2023, 02/02/2023, 11/17/2022 MR I: 01/29/2024, 06/20/2023, 01/19/2023, 07/20/2022, 03/28/2022 FINDINGS: Mediastinal SUV mean is 2.0. Hepatic parenchyma SUV mean is 2.7. SKULL BASE AND NECK: No suspicious radiotracer activity. CHEST, MEDIASTINUM, AND HILAR REGION: Focal area of uptake identified with a mildly enlarged 1 cm short axis right paratracheal lymph node again with a maximum SUV of 4.7, previously 6.6, 4.2. Subcarinal lymph node demonstrates radiotracer uptake again with a maximum SUV of 5.8, previously 7.0 , 5.3. Bilateral hilar lymph node uptake with a maximum SUV on the right of 7.4, previously 7.6 and 6.9. On the left demonstrates a maximum SUV of 5.2, previously 6.8 and 4.5. Right upper lung field mass/postsurgical change atelectasis demonstrates a maximum SUV of 3.2, previo usly 4.4 and 3.3. ABDOMEN AND PELVIS: No suspicious radiotracer activity. MUSCULOSKELETAL STRUCTURES: No suspicious radiotracer activity. OTHER CT: Atherosclerosis of the arterial vasculature. Heart is mildly enlarged for size. Right hepat ic lobe cyst. Scoliosis changes of the spine. Multilevel disc degenerative changes of the spine. Susp ensory ring within the vagina. Nonobstructive left renal 3 mm calculus. Pelvic phleboliths. Small catherine cified uterine fibroid. Calcification within the right brain stem. Calcified granuloma within the lef t upper lobe. Right lower lobe linear scarring. IMPRESSION: Decreased mild radiotracer uptake within the right medial lung mass and mediastinal/hilar lymph nodes when compared to prior PET/CT suggesting positive response to therapy. No new suspicious areas of up take to suggest new metastasis. [facility], , 05/08/2024 4:19 PM
== END | disposition home or self-care (01) ==
LOC: RADPETMAIN 08:42
PROVIDERS: ATTEND Internal Medicine Hematology & Oncology
DX: C34.11 Malignant neoplasm of upper lobe, right bronchus or lung (principal); R91.8 Other nonspecific abnormal finding of lung field
CPT/HCPCS: 78815; A9552

== ENCOUNTER → 2024-08-28 | Outpatient (CLI) | payer MEDICARE, BC ==
--- NOTE | 2024-09-01 22:14 | PE ---
EXAMINATION TYPE: PET CT fusion skull to thigh DATE OF EXAM: 08/28/2024 COMPARISON: No recent pertinent CT. Prior PET/CT: 05/08/2024 CLINICAL INDICATION: Female, 74 years old with history of C34.11 LUNG CANCER, TECHNIQUE: Following the intravenous administration of 9.48 mCi of F-18 FDG, whole body images are p erformed PET CT fusion skull to thigh. Images are reviewed on the computer in the coronal, axial, an d sagittal planes. Reconstructed rotating images are created on independent workstation and reviewed on the computer. A localization and attenuation correction CT is performed in conjunction with the PET scan. DLP: 46.5 mGycm SCAN: Subsequent Blood glucose: 90 mg/dL Average Mediastinum SUV: 2.24 Average Liver SUV: 2.79 FINDINGS: NECK: No abnormal uptake THORAX: There is mild uptake within the mediastinum. Example images 78, SUV 4.3. Right hilum, image 8 1, 6.21 SUV, previously 6.76. Subcarina image 83, SUV 6.19, previous 5.37, left hilum several punctat e slightly hyperdense areas including image 86 with a 3.82 medially, 4.34 laterally, and 3.70 anterio rly. Left infrahilar region image 89, SUV 5.33 ABDOMEN: No abnormal uptake PELVIS: No abnormal uptake OSSEOUS STRUCTURES: No abnormal uptake LOCALIZATION CT: Calcified granulomas in the lateral left apex. Right suprahilar mass is present appe ars similar. There is a small hypodensity within the liver present previously may be a small cyst. P essarie is within the vaginal vault. COMPARISON: Uptake has diminished slightly over the interval. New lesions are not identified. IMPRESSION: 1. Mild diminished SUV compared to the prior study within the areas of mediastinal uptake. No new les ions are evident. [facility], , 09/01/2024 10:11 PM
== END | disposition home or self-care (01) ==
LOC: RADPETMAIN 09:22
PROVIDERS: ATTEND Internal Medicine Hematology & Oncology
DX: C34.11 Malignant neoplasm of upper lobe, right bronchus or lung (principal)
CPT/HCPCS: 78815; A9552

== ENCOUNTER → 2024-12-19 | Outpatient (CLI) | payer MEDICARE, BC ==
--- NOTE | 2024-12-19 17:47 | PE ---
EXAMINATION TYPE: PET CT fusion skull to thigh DATE OF EXAM: 12/19/2024 CLINICAL INDICATION:Female, 74 years old with history of C34.11 lung ca; TECHNIQUE: Following the intravenous administration of 10.66 mCi of F-18 FDG, whole body images are performed from the skull base to the Mid thigh. Images are reviewed on the computer in the coronal, axial, and sagittal planes. Reconstructed rotating images are created on independent workstation an d reviewed on the computer. A non-contrast CT is performed in conjunction with the PET scan. Glucos e level 90 mg/dL CT DLP: 73 mGycm, Automated exposure control for dose reduction was used. COMPARISON: CT 08/28/2024, PET/CT None, MRI: None FINDINGS: Mediastinal SUV mean is 2.2. Hepatic parenchyma SUV mean is 2.8 SKULL BASE AND NECK: No suspicious radiotracer activity. CHEST, MEDIASTINUM, AND HILAR REGION: Suspicious uptake within the mediastinal lymph nodes identified again. Examples include. * Right perihilar max SUV 10.0, previously 8.6. * Left perihilar max SUV 6.9, previously 5.3. * Subcarinal max SUV 8.9, previously 6.3. * Right paratracheal max SUV 8.2, previously 5.2. * Right upper lung field mass/postsurgical change atelectasis/consolidation in the right lung apex m ax SUV 2.9. Previously less consolidation in this region. * Indeterminate focal uptake within the superior left ventricular wall max SUV 4.4 previously 5.1 po ssibly physiologic. ABDOMEN AND PELVIS: No suspicious radiotracer activity. MUSCULOSKELETAL STRUCTURES: No suspicious radiotracer activity. OTHER CT: Atherosclerosis of the arterial vasculature. Heart is mildly enlarged for size. Right hepat ic lobe cyst. Scoliosis changes of the spine. Multilevel disc degenerative changes of the spine. Susp ensory ring within the vagina. Nonobstructive left renal 3 mm calculus. Pelvic phleboliths. Small catherine cified uterine fibroid. Calcification within the right brain stem. Calcified granuloma within the lef t upper lobe. Right lower lobe linear scarring. IMPRESSION: Increasing metabolic activity within the mediastinal lymph nodes concerning for recurrent malignancy. [facility], , 12/19/2024 5:45 PM
== END | disposition home or self-care (01) ==
LOC: RADPETMAIN 10:56
PROVIDERS: ATTEND Internal Medicine Hematology & Oncology
DX: C34.11 Malignant neoplasm of upper lobe, right bronchus or lung (principal)
CPT/HCPCS: 78815; A9552